=== PATIENT | male | born 1975 | race Caucasian/White ===

== ENCOUNTER 2018-09-13 10:59 | Emergency (ER) | payer OTHER, MEDICAID, SELFPAY ==
--- NOTE | 2018-09-13 11:10 | XR_ITS ---
XR shoulder RT min 2V HISTORY: ITS.REASON: PAIN ORDERING PHYSICIAN: Andrew Abraham APRN PATIENT AGE: 43 years Comparison: None FINDINGS: No fracture or dislocation. No lytic or blastic change. There is normal mineralization. The joint spaces are well-preserved. No significant degenerative/arthritic changes. No erosive changes evident. IMPRESSION: Negative, no acute finding
[2018-09-13 11:11] VITALS: BP 132/84; PULSE 81; RESP 17; TEMP 36.6; O2SAT 99; BMI 29.3
--- NOTE | 2018-09-13 11:28 | HMH.EDUTC ---
[facility] [place] Disposition Clinical Impression: Shoulder pain Qualifiers: Chronicity: acute Laterality: right Qualified Code(s): M25.511 - Pain in right shoulder Shoulder tendinitis Qualifiers: Laterality: right Qualified Code(s): M75.81 - Other shoulder lesions, right shoulder Disposition: Home, Self-Care Condition on Discharge: Good Instructions: Shoulder Tendinopathy, DI for Shoulder Pain Additional Instructions: Follow up with Dr. Dickson (orthopedics). I put in a referral. Call her office and get an appointment. Don't start the oral steroids (medrol dose pack) until tomorrow. Follow up with your regular doctor. GO TO THE ER FOR ANY WORSENING SYMPTOMS Prescriptions: methylPREDNISolone [Medrol] 4 mg PO DIRECTED 6 Days #21 tab.ds.pk Referrals: Provider,MD Ming [Primary Care Provider] - Vicky Dickson MD [Physician] - Forms: Work/School Release Time of Disposition: 11:34 Medical Decision Making - Medical Records Medical records reviewed: Yes: I reviewed the patient's medical records. - Yusef Inquiry Pt receiving controlled substance: No Yusef was queried for this patient: No Vital Signs: 09/13/18 11:11 09/13/18 11:44 Temperature 97.8 F 97.8 F Temperature Source Oral Oral Pulse Rate 81 Pulse Rate [Right Brachial] 81 Respiratory Rate 17 17 Blood Pressure 132/84 Blood Pressure [Right Arm] 132/84 Blood Pressure Mean [Right Arm] 100 Blood Pressure Source [Right Arm] Automatic Cuff Blood Pressure Position [Right Arm] Sitting 02 Sat by Pulse Oximetry 99 Oxygen Delivery Method Room Air Room Air Orders (Tests/Meds): ED MEDICATIONS Discontinued Medications Generic Name Dose Route Start Last Admin Trade Name Freq PRN Reason Stop Dose Admin Ketorolac Tromethamine 60 mg 09/13/18 11:34 09/13/18 11:38 Toradol 60mg/2ml Vial IM 09/13/18 11:35 60 mg ONCE ONE Administration Methylprednisolone Sodium Succinate 125 mg 09/13/18 11:34 09/13/18 11:38 Solu-Medrol 125mg/2ml Vial IM 09/13/18 11:35 125 mg ONCE ONE Administration - Radiology Data #1 Image(s): Shoulder Image Reviewed: Yes I reviewed the patient's radiology image Preliminary Findings: No Fracture Seen [facility] [place] HPI - General Stated complaint: Rt. Shoulder pain Time Seen by Provider: 09/13/18 11:20 Mode of Arrival: Family Vehicle Source of Information: Patient Limitations: No Limitations Description of Symptoms (Recalled from Triage Doc. by RN): C/O RIGHT ARM/SHOULDER PAIN X 3 YEARS AND WORSE THE LAST 2 DAYS HEENT Symptoms (Recalled from RN notes): No Resp Symptoms (Recalled from RN notes): No Skin Symptoms (Recalled from RN notes): No MS Symptoms (Recalled from RN notes): Yes Functional Status (Recalled from RN notes): N/A - History of Present Illness Provider Complaint: He has a history of chronic right shoulder pain. Over the past 2 days his pain has worsened. He is unable to raise his arm over his head with having moderate to severe pain. - Related Data Previous Rx's Medication Instructions Recorded methylPREDNISolone [Medrol] 4 mg PO DIRECTED 6 Days #21 09/13/18 tab.ds.pk Allergies Allergy/AdvReac Type Severity Reaction Status Date / Time No Known Allergies Allergy Verified 11/14/17 22:11 - Worker's Comp Is this a Worker's Comp case?: No [facility] History - Hepatitis A Screen Drug use history?: No High risk sexual behaviors?: No History of sexually transmitted infection?: No Currently employed?: No Childcare worker?: No Do you have indoor plumbing?: Yes Do you have electricity?: Yes Attestation statement:: This patient has been screened for Hepatitis A risk factors. I have reviewed the patient's past medical history: Yes Medical History: Denies:: Diabetes Mellitus Type 1 - Social History Smoking Status: Current every day smoker Tobacco Type: cigarettes # Packs/Day (cigarettes): 1 Alcohol Intake: never Substance Use Type: former substance u
--- NOTE | 2018-09-13 11:31 | ED_ITS ---
[facility] [place] Disposition Clinical Impression: Shoulder pain Qualifiers: Chronicity: acute Laterality: right Qualified Code(s): M25.511 - Pain in right shoulder Shoulder tendinitis Qualifiers: Laterality: right Qualified Code(s): M75.81 - Other shoulder lesions, right shoulder Disposition: Home, Self-Care Condition on Discharge: Good Instructions: Shoulder Tendinopathy, DI for Shoulder Pain Additional Instructions: Follow up with Dr. Dickson (orthopedics). I put in a referral. Call her office and get an appointment. Don't start the oral steroids (medrol dose pack) until tomorrow. Follow up with your regular doctor. GO TO THE ER FOR ANY WORSENING SYMPTOMS Prescriptions: methylPREDNISolone [Medrol] 4 mg PO DIRECTED 6 Days #21 tab.ds.pk Referrals: Provider,MD Ming [Primary Care Provider] - Vicky Dickson MD [Physician] - Forms: Work/School Release Time of Disposition: 11:34 Medical Decision Making - Medical Records Medical records reviewed: Yes: I reviewed the patient's medical records. - Yusef Inquiry Pt receiving controlled substance: No Yusef was queried for this patient: No Vital Signs: 09/13/18 11:11 09/13/18 11:44 Temperature 97.8 F 97.8 F Temperature Source Oral Oral Pulse Rate 81 Pulse Rate [Right Brachial] 81 Respiratory Rate 17 17 Blood Pressure 132/84 Blood Pressure [Right Arm] 132/84 Blood Pressure Mean [Right Arm] 100 Blood Pressure Source [Right Arm] Automatic Cuff Blood Pressure Position [Right Arm] Sitting 02 Sat by Pulse Oximetry 99 Oxygen Delivery Method Room Air Room Air Orders (Tests/Meds): ED MEDICATIONS Discontinued Medications Generic Name Dose Route Start Last Admin Trade Name Freq PRN Reason Stop Dose Admin Ketorolac Tromethamine 60 mg 09/13/18 11:34 09/13/18 11:38 Toradol 60mg/2ml Vial IM 09/13/18 11:35 60 mg ONCE ONE Administration Methylprednisolone Sodium Succinate 125 mg 09/13/18 11:34 09/13/18 11:38 Solu-Medrol 125mg/2ml Vial IM 09/13/18 11:35 125 mg ONCE ONE Administration - Radiology Data #1 Image(s): Shoulder Image Reviewed: Yes I reviewed the patient's radiology image Preliminary Findings: No Fracture Seen [facility] [place] HPI - General Stated complaint: Rt. Shoulder pain Time Seen by Provider: 09/13/18 11:20 Mode of Arrival: Family Vehicle Source of Information: Patient Limitations: No Limitations Description of Symptoms (Recalled from Triage Doc. by RN): C/O RIGHT ARM/SHOULDER PAIN X 3 YEARS AND WORSE THE LAST 2 DAYS HEENT Symptoms (Recalled from RN notes): No Resp Symptoms (Recalled from RN notes): No Skin Symptoms (Recalled from RN notes): No MS Symptoms (Recalled from RN notes): Yes Functional Status (Recalled from RN notes): N/A - History of Present Illness Provider Complaint: He has a history of chronic right shoulder pain. Over the past 2 days his pain has worsened. He is unable to raise his arm over his head with having moderate to severe pain. - Related Data Previous Rx's Medication Instructions Recorded methylPREDNISolone [Medrol] 4 mg PO DIRECTED 6 Days #21 09/13/18 tab.ds.pk Allergies
[2018-09-13 11:44] VITALS: BP 132/84; PULSE 81; RESP 17; TEMP 36.6; O2SAT 99
== END 2018-09-13 11:44 | disposition home or self-care (01) ==
PROVIDERS: Emergency Provider Nurse Practitioner Family
DX: M25.511 Pain in right shoulder (principal); M75.81 Other shoulder lesions, right shoulder; F17.210 Nicotine dependence, cigarettes, uncomplicated
CPT/HCPCS: 73030; 96372; 99202

== ENCOUNTER 2018-10-13 17:47 | Outpatient (CLI) | payer MEDICAID, SELFPAY ==
--- NOTE | 2018-10-13 18:09 | PC.NURSE ---
HERE FOR DRESSING CHANGE TO LEFT HAND. DRESSING REMOVED AND REPACKED WITH IODOFORM GAUZE,COVERED BY CAMPBELL AND KELLY. TO RETURN TOMORROW FOR ADDITIONAL WOUND CARE. AREA REMAINS RED AND INFLAMMED WITH DRAINAGE OF PUS
== END 2018-10-13 18:11 | disposition home or self-care (01) ==
LOC: UTC.OUT 17:49
PROVIDERS: PCP Physician Assistant; Visit Provider Nurse Practitioner Family
DX: L02.512 Cutaneous abscess of left hand (principal)

== ENCOUNTER 2018-10-18 14:03 | Outpatient (RCR) | payer OTHER, MEDICAID, SELFPAY ==
--- NOTE | 2018-10-18 14:39 | HMH.OTOPEV ---
OT Inpatient Evaluation Rehab OT Outpatient Eval Start: 10/18/18 14:29 Freq: Status: Active Protocol: Document 10/18/18 14:29 RMARSHALJose De Jesus (Rec: 10/18/18 14:39 [id number] Electronically Signed By Zeinab Logan OT 10/18/18 14:29 Outpatient Therapy Subjective History Subjective History Pt is a 43 year old male who reports to therapy for initial evaluation to right shoulder. Pt reports at work he was continuously pushing/pulling trollies (August,). He remembers pulling a trolly which caused pain at the shoulder immediately. Since then he has had a steady increase in pain at the right shoulder. Pt does demonstrate with decreased AROM and strength at right shoulder. Pt will continue to be seen twice a week in order to address all deficits. Chief Complaint Pain,Stiff,Weakness Symptom Type Ache,Throb,Sharp,Dull,Shooting Symptoms Relieved By Nothing Symptoms Aggravated By Physical Activity,Lifting Prior Functional Limitations None Current Functional Limitations Reaching,Lifting,Housework, Dressing,Driving,Sleeping, Recreation Activity Symptom Description Constant and Continuous Level of pain today (0-10) 5 Pain scale - at its best (0-10) 2 Pain scale - at its worst (0-10) 8 Shoulder/Elbow Eval Shoulder Objective Measurements Shoulder ROM Right Shoulder ROM Limitations Pain Shoulder Abduction Active Range of 85 degrees Motion (degrees) Shoulder Flexion Active Range of Motion 114 degrees (degrees) Query Text: Shoulder External Rotation Active Range 45 degrees of Motion (degrees) Shoulder Internal Rotation Active Range 45 degrees of Motion (degrees) pain with active ROM shoulder exam right standard pain with passive ROM shoulder exam right standard decreased ROM shoulder exam standard right full ROM shoulder exam standard left Shoulder MMT Shoulder Abduction Strength Grade 3+ Fair+ Shoulder Extension Strength Grade 3+ Fair+ Shoulder Flexion Strength Grade 3+ Fair+ Shoulder External Rotation Strength 3+ Fair+ Grade Shoulder Internal Rotation Strength 3+ Fair+ Grade
== END 2018-10-18 14:10 | disposition home or self-care (01) ==
LOC: OT 14:03
PROVIDERS: Visit Provider Physician Assistant
DX: M25.511 Pain in right shoulder (principal)
CPT/HCPCS: 97166

== ENCOUNTER → 2019-05-29 16:40 | Outpatient (CLI) | payer OTHER, MEDICAID, SELFPAY ==
[2019-05-29 16:51] LABS: Basophils # 0.1 K/mm3 (0-0.2); Basophils % 1.2 % (0.1-2.0); Eosinophils # 0.3 K/mm3 (0.0-0.4); Eosinophils % 4.7 % (0.1-12.0); Hematocrit 42.9 % (42.0-52.0); Hemoglobin 14.2 g/dL (14.1-18.0); Lymphocytes # 2.6 K/mm3 (0.7-4.5); Lymphocytes % 47.6 % (10-50); Mean Corpuscular HGB Conc 33.2 g/dL (31.8-35.4); Mean Corpuscular Hemoglobin 29.7 pg (27.0-31.2); Mean Corpuscular Volume 89.3 fl (80-94); Mean Platelet Volume 7.2 fl (7.4-10.4); Monocytes # 0.3 K/mm3 (0.1-1.0); Monocytes % 5.5 % (1.7-9.3); Neutrophils # 2.2 K/mm3 (1.8-7.8); Platelet Count 301 K/mm3 (142-424); Red Cell Distribution Width 15.4 % (11.5-17.5); White Blood Count 5.4 K/mm3 (4.8-10.8)
[2019-05-29 17:12] LABS: Chloride 102 mmol/L (98-107)
[2019-05-29 17:13] LABS: Potassium 4.6 mmoL/L (3.5-5.1); Sodium 140 mmol/L (136-145)
[2019-05-29 17:14] LABS: Blood Urea Nitrogen 13 mg/dl (9-20); Estimated Glomerular Filt Rate 93 ml/min (>60); GFR (African American) 112 ML/MIN (>60)
[2019-05-29 17:15] LABS: Alanine Aminotransferase 11 U/L (12-78); Alkaline Phosphatase 54 U/L (38-126); Anion Gap 12.6 mEq/L (5-15); Aspartate Amino Transferase 18 U/L (17-59); Bilirubin,Total 0.7 mg/dl (0.2-1.3); Carbon Dioxide 30 mmol/L (22.0-30.0); Cholesterol 179 mg/dl (140-200); Triglycerides 173 mg/dl (30-150); VLDL Cholesterol 35 mg/dL (0-40)
[2019-05-29 17:16] LABS: Albumin Level 4.2 g/dl (3.5-5.0); Albumin/Globulin Ratio 1.1 (1.1-1.8); Calcium 9.3 mg/dl (8.4-10.2); Chol/HDL Ratio 5.1 (1-3.5); Globulin 3.8 g/dL (1.3-3.2); Glucose 87 mg/dl (74-100); HDL Cholesterol 35 mg/dl (40-60)
[2019-05-29 17:29] LABS: Direct LDL Cholesterol 51.57 mg/dL (100-129)
[2019-05-29 17:48] LABS: Thyroid Stimulating Hormone 1.01 uIU/mL (0.465-4.68)
[2019-05-29 18:46] LABS: T4 (Thyroxine) 9.6 ug/dl (5.53-11.0)
[2019-05-31 08:31] LABS: Testosterone,Total 236 ng/dL (264-916); Vitamin D 25 Hydroxy 17.4 ng/mL (30.0-100.0)
== END ==
PROVIDERS: Visit Provider Physician Assistant
DX: R68.82 Decreased libido (principal); E55.9 Vitamin D deficiency, unspecified
CPT/HCPCS: 80053; 80061; 82652; 84403; 84436; 84443; 85025

== ENCOUNTER → 2019-06-03 14:05 | Outpatient (CLI) | payer OTHER, MEDICAID, SELFPAY ==
[2019-06-05 12:17] LABS: Testosterone,Total 298 ng/dL (264-916)
== END ==
PROVIDERS: Visit Provider Physician Assistant
DX: R79.89 Other specified abnormal findings of blood chemistry (principal)
CPT/HCPCS: 84403

== ENCOUNTER 2021-11-01 15:01 | Emergency (ER) | payer MEDICAID, SELFPAY ==
[2021-11-01 15:10] VITALS: BP 140/79; PULSE 101; RESP 19; TEMP 36.8; O2SAT 98; BMI 30.9
[2021-11-01 15:40] VITALS: BP 140/79; PULSE 101; RESP 19; TEMP 36.8; O2SAT 98
--- NOTE | 2021-11-01 16:12 | HMH.EDUTC ---
[facility] [place] Disposition Clinical Impression: Encounter for laboratory testing for COVID-19 virus Disposition: Home, Self-Care Condition on Discharge: Good Instructions: DI for COVID-19 (Suspected or Confirmed ), Preventing the Spread of Coronavirus Discharge Instructions Additional Instructions: *Monitor Temp, Over the counter Motrin or Tylenol as directed/as needed Tylenol every 4 hours and Motrin every 6 hours (as long as your family doctor has told you that you can take it) for fever or pain. and straight to ER if unable to lower temp less than 101.0 after medication given *Warm salt water gargles may help to soothe the throat *Throat Lozenges *Warm fluids like tea with honey may help to soothe the throat *Sleep elevated *Humidifier/Vaporizer Follow up IMMEDIATELY for new or worsening symptoms or no Noticeable improvement over the next 48-72 hours. 911 for difficulty breathing or swallowing You were tested for today for COVID19 your test result should be back in the next 24-48 hours, you may check your results on the [facility] My Health Portal Make sure to take your Vitamins Vit. C Vit D and Zinc if you can take them Referrals: Karla Butts PA [Primary Care Provider] - As needed Forms: Work/School Release Medical Decision Making - Yusef Inquiry Pt receiving controlled substance: No Yusef was queried for this patient: No Vital Signs: 11/01/21 15:10 11/01/21 15:40 Temperature 98.3 F 98.3 F Temperature Source Oral Pulse Rate 101 H Pulse Rate [Right Brachial] 101 H Respiratory Rate 19 19 Blood Pressure 140/79 Blood Pressure [Right Arm] 140/79 Blood Pressure Mean [Right Arm] 99 Blood Pressure Source [Right Arm] Automatic Cuff Blood Pressure Position [Right Arm] Sitting 02 Sat by Pulse Oximetry 98 Oxygen Delivery Method Room Air Orders (Tests/Meds): ORDERS Category Date Time Status Covid-19 Nasal PCR ([facility]) Routine Lab 11/01/21 15:18 Received [facility] [place] HPI - General Stated complaint: covid exposure, covid test Time Seen by Provider: 11/01/21 15:25 Mode of Arrival: Ambulatory Source of Information: Patient Limitations: No Limitations Description of Symptoms (Recalled from Triage Doc. by RN): PATIENT STATES HE TESTED POSITIVE FOR COVID WITH A HOME TEST LAST WEEK. REQUESTING WORK NOTE TO RETURN TO WORK HEENT Symptoms (Recalled from RN notes): No Resp Symptoms (Recalled from RN notes): No Skin Symptoms (Recalled from RN notes): No MS Symptoms (Recalled from RN notes): No Functional Status (Recalled from RN notes): WNL - History of Present Illness Provider Complaint: Patient states that he tested for COVID on home test last and it was positive States that he is no longer having symptoms but work will not let him return until he is seen - Related Data Previous Rx's Medication Instructions Recorded cholecalciferol (vitamin D3) 25 1,000 unit PO DAILY #90 cap 06/03/19 mcg (1,000 unit) capsule ergocalciferol (vitamin D2) 1,250 50,000 unit PO QWEEK #14 cap 06/03/19 mcg (50,000 unit) capsule Allergies Allergy/AdvReac Type Severity Reaction Status Date / Time No Known Allergies Allergy Verified 06/13/19 10:09 - Worker's Comp Is this a Worker's Comp case?: No [facility] History - Hepatitis A Screen Attestation statement:: This patient has been screened for Hepatitis A risk factors. I have reviewed the patient's past medical history: Yes Medical History: Denies:: Diabetes Mellitus Type 1 Other Surgeries: Yes: No Previous Surgery Amputation: No Fractures: No - Social History Smoking Status: Current every day smoker Tobacco Type: cigarettes, smokeless tobacco # Packs/Day (cigarettes): 1 #Yrs smoked (if former smoker): 30 Alcohol Intake: never Substance Use Type: former substance user, heroin, crack/cocaine, painkillers, methamphetamine, opiates, amphetamines, marijuana Occupational Status: unemployed Family Hx:: Coronary Artery Disease, Hypertension, Stroke
== END 2021-11-01 16:18 | disposition home or self-care (01) ==
PROVIDERS: Emergency Provider Nurse Practitioner; PCP Physician Assistant
DX: Z20.822 Contact with and (suspected) exposure to COVID-19 (principal)
CPT/HCPCS: 99212; C9803; G0463; U0003; U0005

== ENCOUNTER 2022-05-21 13:21 | Emergency (ER) | payer MEDICAID, SELFPAY ==
[2022-05-21 13:22] VITALS: BMI 34.9
[2022-05-21 14:00] VITALS: BP 144/81; PULSE 102; RESP 19; TEMP 37.2; O2SAT 96; BMI 35.4
--- NOTE | 2022-05-21 14:09 | XR_ITS ---
PROCEDURE INFORMATION: Exam: XR Lumbosacral Spine Exam date and time: 05/21/2022 2:16 PM Age: 47 years old Clinical indication: Low back pain TECHNIQUE: Imaging protocol: Radiologic exam of the lumbosacral spine. Views: 2 or 3 views. COMPARISON: No relevant prior studies available. FINDINGS: Bones/joints: Vertebral alignment is maintained. There is preservation of vertebral body heights. No visible fracture. Interpedicular distances are maintained. Soft tissues: Unremarkable. IMPRESSION: No acute fracture. No traumatic subluxation.
[2022-05-21 14:11] LABS: Apearance,Urine Cloudy (Clear); Bilirubin,Urine 1+ (Negative); Blood, Urine Negative (Negative); Color,Urine Dark Yellow (Yellow); Glucose,Urine (UA) Negative (Negative); Ketones,Urine 15 (Negative); Protein,Urine 1+ (Negative); UTC Leukocyte Esterase,Urine Negative (Negative); UTC Nitrate,Urine Negative (Negative); Urobilinogen,Urine 1 EU/dl (0.2)
[2022-05-21 14:20] VITALS: BP 144/81; PULSE 102; RESP 19; TEMP 37.2; O2SAT 96
--- NOTE | 2022-05-21 14:47 | EXP.UTC ---
Discharge Plan Disposition Patient Disposition: Home, Self-Care Condition: Good Prescriptions Prescriptions: New etodolac 200 mg capsule 200 mg PO Q8H PRN (Reason: pain) Qty: 15 0RF methocarbamol 500 mg tablet 500 mg PO TID PRN (Reason: muscle spasm) Qty: 15 0RF methylprednisolone [Medrol (Nino)] 4 mg tablets,dose pack See Rx Instructions .Route .COMPLEX 6 Days Qty: 21 0RF Rx Instructions: taper pack; No Action cholecalciferol (vitamin D3) 25 mcg (1,000 unit) capsule 1,000 unit PO DAILY Qty: 90 3RF Rx Instructions: administer with meals ergocalciferol (vitamin D2) 1,250 mcg (50,000 unit) capsule 50,000 unit PO QWEEK Qty: 14 3RF Referrals Follow up/Referrals: Karla Butts PA [Primary Care Provider] - See instructions Activity Restrictions/Add. Instructions Additional Instructions/Restrictions: Take medication as prescribed *Etodolac janelle 8 hours with meal as needed for pain/inflammation *Remember you had a Toradol shot in the clinic today, which is similar to Motrin and Etodolac do not take today *Not additional anti-inflammatory like Ibuprofen, motrin, aleve, advil with the above amount of Etodolac. You can still take Tylenol every 4 hours as needed if you need something else for pain *Ice 20 minutes every 2 hours for the first 48 hours after the initial injury followed by moist heat every 20 minutes 3-4 times a day to affected area *Muscle relaxer every 8 hours as needed for muscle spasms but remember, it WILL cause drowsiness You cannot take it and drive, operate machinery or care for small children or while working *Keep this area active, no movement leads to more stiffness, However take it easy and avoid heavy lifting pushing or pulling *Follow up with you family doctor if no improvement for further treatment and re evaluation of urine Straight to ER if any worsening of pain or any life threatening symptoms Clinical Impressions Clinical Impression: Lumbar radiculopathy Stand Alone Forms Stand Alone Forms: Work/School Release Instructions Patient Instructions: DI for Low Back Pain Discharge ED Provider: Mahi Pool [facility] General Chief complaint: Back Pain/Injury Stated complaint: back pain, no accident, kidney pain Mode of Arrival: Ambulatory Source of Information: Patient Limitations: No Limitations Time Seen by Provider: 05/21/22 14:20 Description of Symptoms (Recalled from Triage Doc. by RN): PATIENT C/O LOWER BACK PAIN THAT STARTED APPROX 4 WEEKS AGO, BUT STATES IT BECAME WORSE LAST NIGHT. NO KNOWN INJURY HEENT Symptoms (Recalled from RN notes): No Resp Symptoms (Recalled from RN notes): No Skin Symptoms (Recalled from RN notes): No MS Symptoms (Recalled from RN notes): Yes Functional Status (Recalled from RN notes): WNL History of Present Illness Provider Complaint: Patient sent from triage States that he has been having low back pain on and off for about 4 weeks but got up this morning and was worse States that pain is worse with certain ways he moves or bends States that it was a little achy last night but worse this morning Denies fever, denies chills denies radiation of pain denies loss of control of bowel or bladder Denies abdominal pain or difficulty urinating States that feels like it is catching Related Data Previous Rx's Medication Instructions Recorded cholecalciferol (vitamin D3) 25 1,000 unit PO DAILY #90 caps 06/03/19 mcg (1,000 unit) capsule ergocalciferol (vitamin D2) 1,250 50,000 unit PO QWEEK #14 caps 06/03/19 mcg (50,000 unit) capsule etodolac 200 mg capsule 200 mg PO Q8H PRN pain #15 caps 05/21/22 methocarbamol 500 mg tablet 500 mg PO TID PRN muscle spasm #15 05/21/22 tabs methylprednisolone 4 mg tablets in See Rx Instructions .Route 05/21/22 a dose pack (Medrol (Nino)) .COMPLEX 6 days #21 tabs Allergies Allergy/AdvReac Type Severity Reaction Status Date / Time No Known Allergies Allergy Verified 06/13/19 10:09
== END 2022-05-21 15:16 | disposition home or self-care (01) ==
PROVIDERS: Emergency Provider Nurse Practitioner; PCP Physician Assistant
DX: M54.16 Radiculopathy, lumbar region (principal)
CPT/HCPCS: 72100; 81003; 96372; 99213; 99214; G0463

== ENCOUNTER → 2022-06-06 11:39 | Outpatient (CLI) | payer MEDICAID, SELFPAY ==
[2022-06-06 13:09] LABS: Basophils # 0.1 K/mm3 (0-0.2); Basophils % 1.4 % (0.1-2.0); Eosinophils # 0.3 K/mm3 (0.0-0.4); Eosinophils % 4.4 % (0.1-12.0); Hematocrit 42.9 % (42.0-52.0); Lymphocytes # 1.9 K/mm3 (0.7-4.5); Lymphocytes % 30.1 % (10-50); Mean Corpuscular HGB Conc 32.7 g/dL (31.8-35.4); Mean Corpuscular Hemoglobin 30.8 pg (27.0-31.2); Mean Corpuscular Volume 94.3 fl (80-94); Mean Platelet Volume 7.7 fl (7.4-10.4); Monocytes # 0.4 K/mm3 (0.1-1.0); Monocytes % 5.6 % (1.7-9.3); Neutrophils # 3.8 K/mm3 (1.8-7.8); Neutrophils % 58.6 % (37.0-80.0); Platelet Count 381 K/mm3 (142-424); Red Blood Count 4.55 M/mm3 (4.60-6.20); White Blood Count 6.4 K/mm3 (4.8-10.8)
[2022-06-06 13:26] LABS: Chloride 101 mmol/L (98-107)
[2022-06-06 13:27] LABS: Potassium 4.7 mmoL/L (3.5-5.1); Sodium 137 mmol/L (136-145)
[2022-06-06 13:29] LABS: Alanine Aminotransferase 19 U/L (12-78); Alkaline Phosphatase 100 U/L (38-126); Amylase 41 U/L (30-110); Anion Gap 12.7 mEq/L (5-15); Aspartate Amino Transferase 22 U/L (17-59); Bilirubin,Total 1.1 mg/dl (0.2-1.3); Blood Urea Nitrogen 10 mg/dl (9-20); Carbon Dioxide 28 mmol/L (22.0-30.0); Estimated Glomerular Filt Rate 122 ml/min (>60); GFR (African American) 148 ML/MIN (>60)
[2022-06-06 13:30] LABS: Calcium 8.6 mg/dl (8.4-10.2); Chol/HDL Ratio 6.7 (1-3.5); Cholesterol 240 mg/dl (140-200); Globulin 4.2 g/dL (1.3-3.2); Glucose 120 mg/dl (74-100); HDL Cholesterol 36 mg/dl (40-60); Lipase 18 U/L (23-300); Total Protein,Serum 8.2 g/dl (6.3-8.2); Triglycerides 273 mg/dl (30-150); VLDL Cholesterol 55 mg/dL (0-40)
[2022-06-06 13:37] LABS: C-Reactive Protein 98.8 mg/L (0-4)
[2022-06-06 13:42] LABS: Direct LDL Cholesterol 64.13 mg/dL (100-129)
[2022-06-06 13:50] LABS: Erythrocyte Sedimentation Rate 70 mm/hr (0-15)
[2022-06-06 13:54] LABS: 25-OH Vitamin D, Total < 12.8 ng/mL (30-100)
[2022-06-06 14:01] LABS: Thyroid Stimulating Hormone 2.63 uIU/mL (0.465-4.68)
[2022-06-06 14:11] LABS: Prostate Specific Ag Screen 0.5 ng/ml (0.0-4.0)
[2022-06-06 15:24] LABS: Hemoglobin A1C 5.7 % (4.0-6.0)
[2022-06-15 21:08] LABS: HLA-B27 Negative (.)
== END ==
PROVIDERS: PCP Physician Assistant; Visit Provider Physician Assistant
DX: M54.9 Dorsalgia, unspecified (principal); M54.50 Low back pain, unspecified; R73.09 Other abnormal glucose; R10.13 Epigastric pain; R82.2 Biliuria; R31.9 Hematuria, unspecified; E55.9 Vitamin D deficiency, unspecified; Z12.5 Encounter for screening for malignant neoplasm of prostate
CPT/HCPCS: 80053; 80061; 82150; 82306; 83036; 83690; 84443; 85025; 85651; 86140; 86812; 87086; 87522; 87902; G0103

== ENCOUNTER 2022-06-27 14:51 | Emergency (ER) | payer MEDICAID, SELFPAY ==
[2022-06-27 14:51] VITALS: BP 151/97; PULSE 110; RESP 18; TEMP 36.6; O2SAT 97; BMI 32.5
[2022-06-27 16:33] VITALS: BP 146/104; PULSE 99; O2SAT 99
--- NOTE | 2022-06-27 17:37 | HMH.EDGENADL ---
Discharge Plan Disposition Patient Disposition: Home, Self-Care Condition: Good Prescriptions Prescriptions: New ketorolac 10 mg tablet 10 mg PO Q6H PRN (Reason: pain) 3 Days Qty: 10 0RF methocarbamol 750 mg tablet 750 mg PO Q6H Qty: 20 0RF No Action buprenorphine-naloxone 8-2 mg tablet, sublingual 1 tab sublingual ergocalciferol (vitamin D2) 1,250 mcg (50,000 unit) capsule 1,250 mcg PO WEEKLY Qty: 14 3RF cholecalciferol (vitamin D3) 50 mcg (2,000 unit) capsule 50 mcg PO DAILY Qty: 90 3RF atorvastatin 10 mg tablet 10 mg PO DAILY Qty: 90 3RF Referrals Follow up/Referrals: Karla Butts PA [Primary Care Provider] - See instructions Activity Restrictions/Add. Instructions Additional Instructions/Restrictions: Toradol as needed for pain. Robaxin, muscle relaxer, as needed. Additional instructions for BACK PAIN: See your physician as soon as possible for further evaluation. Return immediately if back pain becomes intolerable, or if fever, numbness or weakness of your legs, loss of control of your bowels or bladder. Clinical Impressions Clinical Impression: Low back pain Stand Alone Forms Stand Alone Forms: Work/School Release Instructions Patient Instructions: DI for Low Back Pain Discharge ED Provider: Agustin Stephens Adult HPI General Chief complaint: PAIN Stated complaint: back pain, no accident Time Seen by Provider: 06/27/22 17:30 Mode of Arrival: Ambulatory Source of Information: Patient Limitations: No Limitations Description of Symptoms (Recalled from ER Triage Doc. by RN): c/o middle and lower back pain that started 2 months ago. States the pain was light 2 months ago but has gotten worse with his job. 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 Pt has seen [facility] and had xray completed with no issues seen, fu with his family doctor who states they will probably need a mri. History of Present Illness HPI narrative: Patient complains of back pain. He indicates the region of his lower thoracic and upper lumbar spine. It has been bothering him for 2 months. He does not recall any injury. The pain worsens with movement. He was seen in the urgent treatment center here and had x-rays done. He thinks he received a shot of steroids there which did not help at all. He takes [id number] ibuprofen which helps. He has been on muscle relaxers which helped. He has seen his primary care doctor and he says that that they are trying to arrange a scan. He says that his primary care provider told him that if he got worse to come to the emergency department. He denies any radiation down the legs. No numbness or weakness of the legs. No numbness of the groin. No loss of bowel or bladder control. He is on Suboxone. He said he has had a couple of episodes when he is laying in bed at night where the muscles across his abdomen will all tighten up. Related Data Home Medications Medication Instructions Recorded Confirmed buprenorphine 8 mg-naloxone 2 mg 1 tab sublingual 06/06/22 06/06/22 sublingual tablet Previous Rx's Medication Instructions Recorded atorvastatin 10 mg tablet 10 mg PO DAILY #90 tabs 06/08/22 cholecalciferol (vitamin D3) 50 50 mcg PO DAILY #90 caps 06/08/22 mcg (2,000 unit) capsule ergocalciferol (vitamin D2) 1,250 1,250 mcg PO WEEKLY #14 caps 06/08/22 mcg (50,000 unit) capsule ketorolac 10 mg tablet 10 mg PO Q6H PRN pain 3 days #10 06/27/22 tabs methocarbamol 750 mg tablet 750 mg PO Q6H #20 tabs 06/27/22 Allergies Allergy/AdvReac Type Severity Reaction Status Date / Time No Known Allergies Allergy Verified 06/06/22 11:02 [facility] Disclaimer: The information contained in this section may have been updated after the patient was seen, as this information can be updated by other users. Medical History Decreased libido Migraine T
--- NOTE | 2022-06-27 17:48 | PC.NURSE ---
Rounded on pt states no complaints @ this time
[2022-06-27 17:56] VITALS: BP 130/80; PULSE 78; RESP 16; TEMP 37.2; O2SAT 97
== END 2022-06-27 17:58 | disposition home or self-care (01) ==
PROVIDERS: Emergency Provider Emergency Medicine; PCP Physician Assistant
DX: M54.50 Low back pain, unspecified (principal)
CPT/HCPCS: 96372; 99283; 99284

== ENCOUNTER 2023-04-10 20:00 | Inpatient (IN) | payer BC, SELFPAY ==
--- NOTE | 2023-04-10 20:12 | ECG_ITS ---
APPROVED REPORT Exam: Resting ECG HR:115 bpm ECG Measurements Heart Rate 115 AXES WV 153 P 56 QRSd 102 QRS 80 QT 347 T 47 QTc 415 Conclusion SINUS TACHYCARDIA POSSIBLE LEFT ATRIAL ENLARGEMENT [-0.1mV P-WAVE IN V1/V2] ABNORMAL RHYTHM ECG UNCONFIRMED REPORT Electronically signed by : Brendan Corbin MD 04/11/2023 13:08:48
[2023-04-10 20:21] VITALS: BP 135/98; PULSE 86; RESP 18; TEMP 37.7; O2SAT 86; BMI 36.9
[2023-04-10 20:30] VITALS: BP 121/96; RESP 17; O2SAT 95
--- NOTE | 2023-04-10 20:58 | XR_ITS ---
PROCEDURE INFORMATION: Exam: XR Chest Exam date and time: 04/10/2023 9:21 PM Age: 48 years old Clinical indication: Dyspnea TECHNIQUE: Imaging protocol: Radiologic exam of the chest. Views: 1 view. COMPARISON: CR CXR CHEST(2 VIEWS-NOT PORTABLE) 02/14/2017 2:39 PM FINDINGS: Lungs: Central opacities with peribronchial cuffing. Pleural spaces: Unremarkable. No pleural effusion. No pneumothorax. Heart/Mediastinum: Unremarkable. No cardiomegaly. Bones/joints: Unremarkable. IMPRESSION: Combination of findings that suggests viral process versus reactive airways without evidence of consolidation.
[2023-04-10 21:00] VITALS: BP 125/91; PULSE 114; RESP 19; O2SAT 94
--- NOTE | 2023-04-10 21:00 | HMH.EDGENADL ---
Discharge Plan Disposition Patient Disposition: Admitted Prescriptions Prescriptions: No Action buprenorphine-naloxone 8-2 mg tablet, sublingual 1 tab sublingual methocarbamol 750 mg tablet 750 mg PO Q6H Qty: 90 0RF ibuprofen 800 mg tablet 800 mg PO Q8H Qty: 90 2RF albuterol sulfate [Proventil HFA] 90 mcg/actuation HFA aerosol inhaler 2 puff inhalation Q6H PRN (Reason: shortness of breath or wheezing) Qty: 8.5 2RF ergocalciferol (vitamin D2) 1,250 mcg (50,000 unit) capsule 1,250 mcg PO WEEKLY Qty: 14 3RF cholecalciferol (vitamin D3) 50 mcg (2,000 unit) capsule 50 mcg PO DAILY Qty: 90 3RF atorvastatin 10 mg tablet 10 mg PO DAILY Qty: 90 3RF Referrals Follow up/Referrals: Karla Butts PA [Primary Care Provider] - See instructions Clinical Impressions Clinical Impression: Acute exacerbation of chronic obstructive pulmonary disease, Acute hypoxic respiratory failure, Sepsis Discharge ED Provider: Courtney Godoy General Adult HPI General Chief complaint: Shortness of Breath/Dyspnea Stated complaint: difficulty breathing Time Seen by Provider: 04/10/23 20:55 Mode of Arrival: Ambulatory Source of Information: Patient Limitations: No Limitations Description of Symptoms (Recalled from ER Triage Doc. by RN): pt states he has been sick since 04/07. pt c/o SOA, productive cough with yellow foamy sputum, rib/umbilical pain (he thinks from coughing), chills, and N/V/D. pt states he has been out of it and barely remembers Sunday. pts face is red and hot to the touch. temp is 100F. pts abd is slightly discolored and cold to the touch. pt is on RA @ home. Pt pulse ox was 86% on RA. pt is now on 4L at 92%. History of Present Illness HPI narrative: Is a 48-year-old male with a history of presumed COPD he states that he believes that he has this has been smoking his whole life presents with 4 days of cough sputum production that is been increased significant wheezing shortness of breath and fever. States this is progressively worsened over the last several days. Does not have home oxygen oxygen saturations were 86% on room air prior to my assessment. Related Data Home Medications Medication Instructions Recorded Confirmed buprenorphine 8 mg-naloxone 2 mg 1 tab sublingual 06/06/22 08/14/22 sublingual tablet Previous Rx's Medication Instructions Recorded atorvastatin 10 mg tablet 10 mg PO DAILY #90 tabs 06/08/22 cholecalciferol (vitamin D3) 50 50 mcg PO DAILY #90 caps 06/08/22 mcg (2,000 unit) capsule ergocalciferol (vitamin D2) 1,250 1,250 mcg PO WEEKLY #14 caps 06/08/22 mcg (50,000 unit) capsule methocarbamol 750 mg tablet 750 mg PO Q6H #90 tabs 07/17/22 albuterol sulfate 90 mcg/actuation 2 puff inhalation Q6H PRN 08/14/22 aerosol inhaler (Proventil HFA) shortness of breath or wheezing #8.5 grams ibuprofen 800 mg tablet 800 mg PO Q8H #90 tabs 08/14/22 Allergies Allergy/AdvReac Type Severity Reaction Status Date / Time No Known Allergies Allergy Verified 04/10/23 20:35 [facility] Disclaimer: The information contained in this section may have been updated after the patient was seen, as this information can be updated by other users. Medical History Decreased libido Migraine Testosterone deficiency Vitamin D deficiency Social History Smoking Status: Current every day smoker tobacco type: cigarettes packs per day: 1 and smokeless tobacco alcohol intake: never substance use type: former substance user, marijuana, crack/cocaine, heroin, amphetamines, opiates, painkillers and methamphetamine current occupational status: unemployed Travel in the last 8 weeks: None ROS Obtained: Yes All systems reviewed & no additional complaints except as documented Physical Exam General General appearance: in distress (Tachypneic speaking to me in fragmented sentences) Respiratory Respiratory exam: Present other (Patient in respiratory distress with mild tachypnea respiratory rate in the mid 20s very tight on my evaluation with prolonged expiratory phase speaking in fragmented sentences and diffuse wheezing) Cardiovascular Cardiovascular exam: Present tachycardia Neurological Exam Neurological exam: Present alert and oriented X3 (DCSF 15 nonfocal) Medical Decision Making Yusef Inquiry Pt receiving controlled substance: No Vital Signs: 04/10/23 20:21 04/10/23 20:30 04/10/23 21:00 Temperature 100 F H Temperature Source Oral Pulse Rate 114 H Pulse Rate [Left] 86 Respiratory Rate 18 17 19 Blood Pressure 121/96 H 125/91 H Blood Pressure [Right Arm] 135/98 H Blood Pressure Mean [Right Arm] 110 Blood Pressure Source [Right Arm] Automatic Cuff Blood Pressure Position [Right Arm] Sitting 02 Sat by Pulse Oximetry 86 L 95 94 L Oxygen Delivery Method Room Air Nasal Cannula Nasal Cannula Oxygen Flow Rate (LPM) 3 3 04/10/23 21:30 04/10/23 21:45 Temperature Temperature Source Pulse Rate 102 H 102 H Pulse Rate [Left] Respiratory Rate 18 Blood Pressure 146/91 H Blood Pressure [Right Arm] Blood Pressure Mean [Right Arm] Blood Pressure Source [Right Arm] Blood Pressure Position [Right Arm] 02 Sat by Pulse Oximetry 94 L Oxygen Delivery Method Nasal Cannula Oxygen Flow Rate (LPM) 3 Lab Data Lab results reviewed: Yes I reviewed the patient's lab results. Lab Results 04/10/23 20:10: WBC 4.0 L, RBC 5.03, Hgb 15.7, Hct 47.1, MCV 93.6, MCH 31.3 H, MCHC 33.4, RDW 15.2, Plt Count 193, MPV 7.8, Neut % (Auto) 78.5, Lymph % (Auto) 14.5, [place] % (Auto) 5.2, Eos % (Auto) 0.6, Baso % (Auto) 1.2, Neut # (Auto) 3.1, Lymph # (Auto) 0.6 L, [place] # (Auto) 0.2, Eos # (Auto) 0.0, Baso # (Auto) 0.1, Sodium 135 L, Potassium 3.2 L, Chloride 96 L, Carbon Dioxide 30, Anion Gap 12.2, BUN 23 H, Creatinine 0.90, Estimated Creat Clear 164, Estimated GFR 91, Est GFR ( Amer) 110, Glucose 171 H, Lactate 2.1, Calcium 7.9 L, Total Bilirubin 0.7, AST 60 H, ALT 28, Alkaline Phosphatase 71, Troponin I 0.01, NT-Pro-B Natriuret Pep 165 H, Total Protein 8.5 H, Albumin 3.9, Globulin 4.6 H, Albumin/Globulin Ratio 0.8 L 04/10/23 20:59: VBG pH 7.38, VBG pCO2 42.0, VBG pO2 81.1 H, VBG HCO3 24.5, VBG Total CO2 25.8, VBG O2 Saturation 95.8 H, VBG Base Excess -0.5 04/10/23 20:10 04/10/23 20:10 Orders (Tests/Meds): ED MEDICATIONS Discontinued Medications Generic Name Dose Route Start Last Admin Trade Name April PRN Reason Stop Dose Admin Albuterol/Ipratropium 3 ml 04/10/23 20:58 04/10/23 21:30 Ipratropium/Albuterol 3 Ml Neb IH 04/10/23 20:59 3 ml ONCE ONE Administration Lactated Ringer's 1,000 mls @ 999 mls/hr 04/10/23 21:00 04/10/23 21:06 Lactated Ringer's 1000 Ml Bag IV 04/10/23 22:00 999 mls/hr .Q1H1M AR[place]IO Administration Magnesium Sulfate 2 gm in 50 mls @ 50 mls/hr 04/10/23 20:58 04/10/23 21:05 Magnesium Sulfate 2gm/50ml Premix IV 04/10/23 21:57 50 mls/hr ONCE ONE Administration Ceftriaxone Sodium 1 gm/ 50 mls @ 100 mls/hr 04/10/23 22:09 04/10/23 22:25 Sodium Chloride IV 04/10/23 22:38 100 mls/hr ONCE ONE Administration Azithromycin 500 mg/ Sodium 250 mls @ 250 mls/hr 04/10/23 22:10 04/10/23 22:47 Chloride IV 04/10/23 22:11 250 mls/hr ONCE ONE Administration Methylprednisolone Sodium Succinate 125 mg 04/10/23 20:58 04/10/23 21:06 Methylprednisolone Sod Succ 125mg Vial IV 04/10/23 20:59 125 mg ONCE ONE Administration ORDERS Category Date Time Status CXR --portable [XR chest portable] Stat Exams 04/10/23 20:58 Completed BNP [Brain Natriuretic Peptide] Stat Lab 04/10/23 20:10 Completed CBC w/Auto Diff [Complete Blood Count Auto Diff] Stat Lab 04/10/23 20:10 Completed CMP [Comprehensive Metabolic Panel] Stat Lab 04/10/23 20:10 Completed Full Resp Panel w/COVID ([facility]) Routine Lab 04/10/23 20:59 Ordered Lactic Acid Stat Lab 04/10/23 20:10 Completed Trop I [Troponin I] Stat Lab 04/10/23 20:10 Completed Troponin I Q3H Lab 04/11/23 02:59 Ordered Blood Culture Stat Micro 04/10/23 20:44 Received Venous Blood Gas Stat RT 04/10/23 20:59 Completed Tissue Perfus/Sepsis Re-Eval Sepsis Re-Evaluation Performed: Yes Date Performed: 04/10/23 Time Performed: 22:54 Medical Decision Narrative: Patient is a 48-year-old male presenting today with tachypnea tachycardia febrile shortness of breath and what appears to be a COPD exacerbation. Patient is objectively septic full respiratory panel was pending chest x-ray performed which I personally interpreted shows no acute cardiopulmonary emergency specifically no evidence of acute focal consolidation nonetheless will cover with antibiotics given the fact that this is a moderate to severe COPD exacerbation Rocephin and azithromycin have been initiated. IV fluids nebs steroids antibiotics have been administered. Upon reassessment around 10:45 PM patient is improving but is still tachypneic and very tight still requiring supplemental oxygen. I strongly encouraged the patient to be admitted initially declined and wanted to go home because he could not miss anymore work but he was still very sick not stable enough to go home from my perspective and I was able to convince the patient to stay in the hospital. He is can require additional breathing treatments IV fluids antibiotics etc. Also needs to have a definitive source of infection identified as this still is very likely to be viral. Patient was admitted to hospital medicine after I discussed with Jacqueline who agreed to accept the patient. Critical Care Critical Care Time Critical Care Time: Yes Attestation: On 04/10/23, the high probability of a clinically significant, sudden or life threatening deterioration of the following system(s) required my full and direct attention, intervention and personal management. The time I documented below is in addition to time spent performing reported procedures but includes the following listed in this critical care notation. Total Time Total Critical Care Time: 35
[2023-04-10] MEDS: MAGNESIUM SULFATE IN WATER 2 GM/50 ML PIGGYBACK IV (21:05)
[2023-04-10] MEDS: LACTATED RINGERS 1000ML 1,000 ML 999 ML IV (21:06)
[2023-04-10] MEDS: METHYLPREDNISOLONE SOD SUCC 125MG VIAL 125 MG IV (21:06)
[2023-04-10 21:19] LABS: Basophils # 0.1 K/mm3 (0-0.2); Basophils % 1.2 % (0.1-2.0); Eosinophils % 0.6 % (0.1-12.0); Hematocrit 47.1 % (42.0-52.0); Hemoglobin 15.7 g/dL (14.1-18.0); Lactic Acid 2.1 mmol/L (0.7-2.1); Lymphocytes # 0.6 K/mm3 (0.7-4.5); Lymphocytes % 14.5 % (10-50); Mean Corpuscular HGB Conc 33.4 g/dL (31.8-35.4); Mean Corpuscular Hemoglobin 31.3 pg (27.0-31.2); Mean Corpuscular Volume 93.6 fl (80-94); Mean Platelet Volume 7.8 fl (7.4-10.4); Monocytes # 0.2 K/mm3 (0.1-1.0); Monocytes % 5.2 % (1.7-9.3); Neutrophils # 3.1 K/mm3 (1.8-7.8); Neutrophils % 78.5 % (37.0-80.0); Platelet Count 193 K/mm3 (142-424); Red Blood Count 5.03 M/mm3 (4.60-6.20); Red Cell Distribution Width 15.2 % (11.5-17.5)
[2023-04-10 21:26] LABS: VBG Base Excess -0.5 mmol/L (-2.4-2.3); VBG HCO3 24.5 mmol/L (23-30); VBG Oxygen Saturation 95.8 % (50-70); VBG PH 7.38 mmol/L (7.31-7.41); VBG PO2 81.1 mmol/L (28-40); VBG Total CO2 25.8 mmol/L (23-27)
[2023-04-10 21:30] VITALS: BP 146/91; PULSE 102; RESP 18; O2SAT 94
[2023-04-10] MEDS: IPRATROPIUM/ALBUTEROL 3 ML NEB IH (21:30)
[2023-04-10 21:32] LABS: NT Pro Brain Natriuretic Pep. 165 pg/mL (0-125)
[2023-04-10 21:36] LABS: Troponin I 0.01 ng/ml (0.00-0.034)
[2023-04-10 21:45] VITALS: PULSE 102
[2023-04-10 22:22] LABS: Chloride 96 mmol/L (98-107); Sodium 135 mmol/L (136-145)
[2023-04-10 22:23] LABS: Potassium 3.2 mmoL/L (3.5-5.1)
[2023-04-10 22:25] LABS: Alanine Aminotransferase 28 U/L (12-78); Alkaline Phosphatase 71 U/L (38-126); Aspartate Amino Transferase 60 U/L (17-59); Bilirubin,Total 0.7 mg/dl (0.2-1.3); Blood Urea Nitrogen 23 mg/dl (9-20); Creatinine Clearance Estimated 164 mL/min (50-200); Estimated Glomerular Filt Rate 91 ml/min (>60); GFR (African American) 110 ML/MIN (>60)
[2023-04-10] MEDS: CEFTRIAXONE SODIUM 1 GM in 0.9 % SODIUM CHLORIDE 50 ML IV (22:25)
[2023-04-10 22:26] LABS: Albumin Level 3.9 g/dl (3.5-5.0); Albumin/Globulin Ratio 0.8 (1.1-1.8); Anion Gap 12.2 mEq/L (5-15); Calcium 7.9 mg/dl (8.4-10.2); Carbon Dioxide 30 mmol/L (22.0-30.0); Globulin 4.6 g/dL (1.3-3.2); Glucose 171 mg/dl (74-100); Total Protein,Serum 8.5 g/dl (6.3-8.2)
[2023-04-10] MEDS: AZITHROMYCIN 500 MG in 0.9 % SODIUM CHLORIDE 250 ML 250 MG IV (22:47)
--- NOTE | 2023-04-10 22:51 | PC.NURSE ---
ED doctor on phone with hospitalist
[2023-04-10 22:55] LABS: Adenovirus,PCR Not Detected (NotDetected); Coronavirus 19, PCR Not Detected (NotDetected); Coronavirus 229E Not Detected (NotDetected); Coronavirus NL63 Not Detected (NotDetected); Coronavirus OC43 Not Detected (NotDetected); Coronovirus HKU1,PCR Not Detected (NotDetected); Human Metapneumovirus Not Detected (NotDetected); Influenza A, PCR Not Detected (NotDetected); Influenza AH1, PCR Not Detected (NotDetected); Influenza AH3,PCR Not Detected (NotDetected); Influenza B, PCR Not Detected (NotDetected); Parainfluenza 1, PCR Not Detected (NotDetected); Parainfluenza 2, PCR Not Detected (NotDetected); Parainfluenza 3, PCR Not Detected (NotDetected); Parainfluenza 4, PCR Not Detected (NotDetected); Respiratory Syncytial Virus Not Detected (NotDetected); Rhinovirus/Enterovirus Not Detected (NotDetected)
--- NOTE | 2023-04-10 22:55 | PC.NURSE ---
I spoke with the supervisor hide house, Danielle MANZO, to request a bed for admission to the hospitalist.
[2023-04-10 23:00] LABS: Influenza AH1, 2009 Detected (NotDetected)
[2023-04-11] VITALS (17 sets, daily range): BP systolic 100–157; BP diastolic 63–88; PULSE 74–107; RESP 17–21; TEMP 36.5–37.7; O2SAT 89–96; BMI 36.8
[2023-04-11 00:07] LABS: Chol/HDL Ratio 4.3 (1-3.5); Cholesterol 121 mg/dl (140-200); HDL Cholesterol 28 mg/dl (40-60); Triglycerides 168 mg/dl (30-150); VLDL Cholesterol 34 mg/dL (0-40)
[2023-04-11 00:17] LABS: Direct LDL Cholesterol 38.16 mg/dL (100-129)
--- NOTE | 2023-04-11 00:32 | PC.NURSE ---
pt arrived to the floor via stretcher @00:10
[2023-04-11] MEDS: LACTATED RINGERS 1000ML 1,000 ML 75 ML IV (00:34)
[2023-04-11] MEDS: NICOTINE 21MG/24HR PATCH 21 MG TD ×2 (00:34→14:45)
--- NOTE | 2023-04-11 00:48 | EXP.HP ---
History of Present Illness *Admission Date: 04/10/23 (Pt seen by this provider on 04/10/2023 at 2330) *Reason for visit:: Shortness of breath *History of present illness: This is a 48-year-old male with a past medical history of Suboxone use and tobacco abuse who presents to the emergency department today with complaints of shortness of breath. He reports Sunday he began shortness of breath with cough and mild fever. He reports being substantially worse over the last several days. He denies any sick contacts but says that he is felt like he has had the flu. He denies any chest pain. Does endorse tobacco use. Emergency Department workup significant for mild respiratory distress on arrival. Patient was notably tachycardic and hypoxic in the 80s requiring requiring 4 L nasal cannula. Emergency department workup significant for flu a positive. Potassium of 3.2. Mildly elevated glucose at 171. He received magnesium, steroids and breathing treatments in the emergency department with improvement in respiratory symptoms. Due to his hypoxia and new oxygen requirement and flu a diagnosis, he will be admitted to the hospitalist service for further evaluation and management. [facility] Disclaimer: The information contained in this section may have been updated after the patient was seen, as this information can be updated by other users. Medical History (Updated 04/11/23 @ 12:18 by Sukhwinder Miramontes MD) Asthma exacerbation Decreased libido Migraine Testosterone deficiency Vitamin D deficiency Surgical History No history of previous surgery Family History Family history of asthma Family history of hypertension Family history of COPD (chronic obstructive pulmonary disease) Family history of hyperlipidemia Social History (Updated 04/11/23 @ 01:12 by Iggy Moses RN) Smoking Status: Current every day smoker tobacco type: cigarettes packs per day: 1 and smokeless tobacco alcohol intake: former substance use type: former substance user, marijuana, crack/cocaine, heroin, amphetamines, opiates, painkillers and methamphetamine current occupational status: unemployed Travel in the last 8 weeks: None Review of Systems Constitutional Constitutional: Reports as per HPI Eyes Eyes: Reports system reviewed and no additional complaints, except as documented ENT Ears, Nose, Mouth, and Throat: Reports system reviewed and no additional complaints, except as documented *Cardiovascular Cardiovascular: Reports system reviewed and no additional complaints, except as documented *Respiratory Respiratory: Reports as per HPI *Gastrointestinal Gastrointestinal: Reports system reviewed and no additional complaints, except as documented *Genitourinary Genitourinary: Reports system reviewed and no additional complaints, except as documented *Musculoskeletal Musculoskeletal: Reports system reviewed and no additional complaints, except as documented *Neurologic Neurologic: Reports system reviewed and no additional complaints, except as documented Meds Home Medications and Allergies Home Medications Medication Instructions Recorded Confirmed Type buprenorphine 8 mg-naloxone 2 mg 2 tab sublingual DAILY 04/11/23 04/11/23 History sublingual tablet New Prescriptions to Start Prescriptions: Allergies Allergy/AdvReac Type Severity Reaction Status Date / Time No Known Allergies Allergy Verified 04/10/23 20:35 Exam Data for Last 24 hours Vital signs and Labs for Last 24 Hours: Temp Pulse Resp BP Pulse Ox O2 Del Method O2 Flow Rate 99.5 F 97 H 21 131/80 93 L Nasal Cannula 4 04/11/23 00:26 04/11/23 00:26 04/11/23 00:26 04/11/23 00:26 04/11/23 00:26 04/11/23 00:26 04/11/23 00:26 Laboratory Results - last 24 hr 04/10/23 20:10: WBC 4.0 L, RBC 5.03, Hgb 15.7, Hct 47.1, MCV 93.6, MCH 31.3 H, MCHC 33.4, RDW 15.2, Plt Count 193, MPV 7.8, Neut % (Auto) 78.5, Lymph % (Auto) 14.5, [place] % (Auto) 5.2, Eos % (Auto) 0.6, Baso % (Auto) 1.2, Neut # (Auto) 3.1, Lymph # (Auto) 0.6 L, [place] # (Auto) 0.2, Eos # (Auto) 0.0, Baso # (Auto) 0.1, Sodium 135 L, Potassium 3.2 L, Chloride 96 L, Carbon Dioxide 30, Anion Gap 12.2, BUN 23 H, Creatinine 0.90, Estimated Creat Clear 164, Estimated GFR 91, Est GFR ( Amer) 110, Glucose 171 H, Hemoglobin A1c 6.0, Lactate 2.1, Calcium 7.9 L, Total Bilirubin 0.7, AST 60 H, ALT 28, Alkaline Phosphatase 71, Troponin I 0.01, NT-Pro-B Natriuret Pep 165 H, Total Protein 8.5 H, Albumin 3.9, Globulin 4.6 H, Albumin/Globulin Ratio 0.8 L, Triglycerides 168 H, Cholesterol 121 L, LDL Cholesterol Direct 38.16 L, VLDL Cholesterol 34, HDL Cholesterol 28 L, Cholesterol/HDL Ratio 4.3 H 04/10/23 20:59: VBG pH 7.38, VBG pCO2 42.0, VBG pO2 81.1 H, VBG HCO3 24.5, VBG Total CO2 25.8, VBG O2 Saturation 95.8 H, VBG Base Excess -0.5, Chlamy pneumoniae PCR TNP, Adenovirus (PCR) Not detected, B. pertussis DNA (PCR) TNP, Coronavirus OC43 (PCR) Not detected, Coronavirus HKU1 (PCR) Not detected, Coronavirus 229E (PCR) Not detected, SARS-CoV-2 (PCR) Not detected, Coronavirus NL63 (PCR) Not detected, Human Metapneumovir PCR Not detected, Influenza A (H1) PCR Not detected, Influ A (H1N1/09) PCR Detected A, Influenza A (H3) PCR Not detected, Influenza Type A (PCR) Not detected, Influenza Type B (PCR) Not detected, M. pneumoniae (PCR) TNP, Parainfluenza 1 (PCR) Not detected, Parainfluenza 2 (PCR) Not detected, Parainfluenza 3 (PCR) Not detected, Parainfluenza 4 (PCR) Not detected, RSV (PCR) Not detected, Entero/Rhino (PCR) Not detected I & O for Last 24 hours: Intake & Output 04/08/23 04/09/23 04/10/23 04/11/23 23:59 23:59 23:59 23:59 Weight 113.398 kg Constitutional Constitutional: no acute distress *Routine HEENT Exam Head: Present normocephalic Eye: Present EOMI and PERRL ENT: Present mucous membranes moist *Routine Neck Exam Neck: Present supple; Absent lymphadenopathy *Routine Respiratory Exam Respiratory: Present wheezes and diminished air movement *Routine Cardiovascular Exam Cardiovascular: Present RRR *Routine Abdominal Exam Abdominal: Present soft and normoactive bowel sounds; Absent tenderness *Routine Rectal Exam Rectal:: deferred *Routine Genitalia Exam Genitalia:: deferred *Routine Extremities Exam Extremities: Absent cyanosis, clubbing or edema *Routine Skin Exam Skin: Present warm; Absent rash *Routine Neurological Exam Neurological: Present alert and oriented X3 Assessment and Plan *Assessment and plan (1) Influenza A: Status: Acute Category: Medical Code(s): J10.1 - Influenza due to other identified influenza virus with other respiratory manifestations (2) Acute exacerbation of chronic obstructive pulmonary disease: Status: Acute Category: Medical Code(s): J44.1 - Chronic obstructive pulmonary disease with (acute) exacerbation (3) Acute hypoxic respiratory failure: Status: Acute Category: Medical Code(s): J96.01 - Acute respiratory failure with hypoxia (4) Sepsis: Status: Acute Qualifiers: Sepsis acute organ dysfunction status: without acute organ dysfunction Sepsis type: sepsis due to unspecified organism Qualified Code(s): A41.9 - Sepsis, unspecified organism Category: Medical Code(s): A41.9 - Sepsis, unspecified organism Plan This is a 48-year-old male with past medical history of substance abuse and tobacco abuse who presented to the emergency department in respiratory distress. Patient has noted to have flu a. He is a tobacco user, likely undiagnosed COPD as well. Influenza A Requiring 4 L nasal cannula to maintain oxygen saturations greater than 88% Chest x-ray without evidence of pneumonia Will continue Tamiflu and supportive measures Procalcitonin pending Received 1 dose of azithromycin and Rocephin in the emergency department, will defer for now pending Pro-Vitaly Acute COPD exacerbation Likely undiagnosed COPD at baseline. Patient denies any history of COPD but is a smoker. Diffuse wheezing on exam. Improved with DuoNebs Continue prednisone 20 mg daily Sepsis Meets criteria for tachycardia and tachypnea. Likely viral source. Requiring 4 L nasal cannula for hypoxia Will defer 30 mL/kg of fluids and continue gentle IV fluid hydration Symptomatic improvement with respiratory support Test negative Tobacco abuse Nicotine patch Tobacco cessation education DVT PPx SCDs Full code Rounded on patient after nurse practitioner. Personally examined and interviewed patient. Agree with exam findings and care plan as documented. Pulmonology consulted on patient today. Patient is at increased oxygen requirement. Of note, H&P is for 04/10/23
[2023-04-11] MEDS: OSELTAMIVIR 75MG CAPSULE 75 MG PO ×3 (00:50→21:39)
[2023-04-11] MEDS: ACETAMINOPHEN 325MG TAB 650 MG PO (00:56)
[2023-04-11] MEDS: IPRATROPIUM/ALBUTEROL 3 ML NEB IH ×6 (00:58→22:48)
[2023-04-11 01:08] LABS: Reflex Lactic Add Lactic Reflex
--- NOTE | 2023-04-11 01:14 | PC.NURSE ---
Patient transported from ER to 2nd floor via stretcher on 4L/NC. RN to RN report received from JOVANY Riley. Patient does not wear oxygen at home. Patient without oxygen will drop to 70%-80% with increased work of breathing. With small ambulation from stretcher to bed he became labored and after 3-5 minutes he was able to recover fair. NAD, VSS otherwise. Care continues.
--- NOTE | 2023-04-11 01:49 | PC.NURSE ---
Patient called out stating his RAC IV was starting to burn. Upon assessing the IV site it was noted to be firm and hard to flush. The IV catheter was 1cm out from insertion site. This IV was removed and new PIV started to Right Forearm.
[2023-04-11 02:25] LABS: Lactic Acid Follow Up (RFLX 1) 2.2 mmol/L (0.7-2.1)
[2023-04-11] MEDS: RINGERS SOLUTION,LACTATED 500 ML 999 ML IV (03:14)
[2023-04-11 03:27] LABS: Procalcitonin 0.306 ng/mL (0.0-2.0)
[2023-04-11 03:49] LABS: Reflex Lactic (2 hrs) Add Lactic Reflex
[2023-04-11 04:21] LABS: Basophils % 0.1 % (0.1-2.0); Eosinophils % 0.3 % (0.1-12.0); Hematocrit 44.7 % (42.0-52.0); Hemoglobin 14.8 g/dL (14.1-18.0); Lymphocytes # 0.4 K/mm3 (0.7-4.5); Lymphocytes % 11.7 % (10-50); Mean Corpuscular HGB Conc 33.1 g/dL (31.8-35.4); Mean Corpuscular Hemoglobin 31.4 pg (27.0-31.2); Mean Corpuscular Volume 94.9 fl (80-94); Monocytes # 0.2 K/mm3 (0.1-1.0); Monocytes % 5.8 % (1.7-9.3); Neutrophils # 2.8 K/mm3 (1.8-7.8); Neutrophils % 82.1 % (37.0-80.0); Platelet Count 190 K/mm3 (142-424); Red Blood Count 4.71 M/mm3 (4.60-6.20); Red Cell Distribution Width 14.9 % (11.5-17.5); White Blood Count 3.4 K/mm3 (4.8-10.8)
[2023-04-11 04:31] LABS: Chloride 97 mmol/L (98-107); Potassium 3.9 mmoL/L (3.5-5.1); Sodium 136 mmol/L (136-145)
[2023-04-11 04:32] LABS: Hemoglobin A1C 5.9 % (4.0-6.0)
[2023-04-11 04:34] LABS: Anion Gap 9.9 mEq/L (5-15); Blood Urea Nitrogen 18 mg/dl (9-20); Carbon Dioxide 33 mmol/L (22.0-30.0); Creatinine Clearance Estimated 211 mL/min (50-200); Estimated Glomerular Filt Rate 121 ml/min (>60); GFR (African American) 147 ML/MIN (>60); Lactic Acid Follow up (RFLX 2) 1.9 mmol/L (0.7-2.1)
[2023-04-11 04:35] LABS: Calcium 7.5 mg/dl (8.4-10.2); Chol/HDL Ratio 4.3 (1-3.5); Cholesterol 112 mg/dl (140-200); Glucose 176 mg/dl (74-100); HDL Cholesterol 26 mg/dl (40-60); Triglycerides 103 mg/dl (30-150); VLDL Cholesterol 21 mg/dL (0-40)
[2023-04-11 04:45] LABS: Direct LDL Cholesterol 39.68 mg/dL (100-129)
--- NOTE | 2023-04-11 06:40 | PC.NURSE ---
Patient rested well after admission. Still requiring 4L/NC and becomes labored when getting up to use his urinal. Breathing treatments have helped. Lung tomlin are still diminished on auscultation. NAD otherwise, VSS.
--- NOTE | 2023-04-11 07:26 | HMH.PHAINT1 ---
Pharmacy Intervention Comments: Home med list verified with patient at bedside and with external pharmacy list.
[2023-04-11] MEDS: predniSONE 20MG TAB 20 MG PO (08:35)
--- NOTE | 2023-04-11 09:48 | P.CONS_ITS ---
History of Present Illness History of present illness: Mr. Cho is a 48-year-old male greater than 30 PPD, carries a diagnosis of asthma, using albuterol on as-needed basis, not on any oxygen supplementation at baseline eported history of tobacco abuse presented to ER complaining of worsening respiratory distress along with subjective fevers that has been worsening recently for the last several days and pulmonary was called for f urther evaluation and management. [facility] Disclaimer: The information contained in this section may have been updated after the patient was seen, as this information can be updated by other users. Medical History (Updated 04/11/23 @ 12:18 by Sukhwinder Miramontes MD) Asthma exacerbation Decreased libido Migraine Testosterone deficiency Vitamin D deficiency Surgical History No history of previous surgery Family History Other Family history of COPD (chronic obstructive pulmonary disease) Family history of asthma Family history of hyperlipidemia Family history of hypertension Social History (Updated 04/11/23 @ 01:12 by Iggy Moses RN) Smoking Status: Current every day smoker tobacco type: cigarettes packs per day: 1 and smokeless tobacco alcohol intake: former substance use type: former substance user, marijuana, crack/cocaine, heroin, amphetamines, opiates, painkillers and methamphetamine current occupational status: unemployed Travel in the last 8 weeks: None Review of Systems Constitutional Constitutional: Reports anorexia and Reports body ache(s) Eyes Eyes: Denies eye discharge, Denies dry eyes, Denies irritation and Denies itchy eyes ENT Ears, Nose, Mouth, and Throat: Denies epistaxis, Denies facial pain, Denies lip swelling and Denies throat swelling *Cardiovascular Cardiovascular: Reports dyspnea and Reports dyspnea on exertion *Respiratory Respiratory: Reports chest congestion, Reports cough, Reports dyspnea, Reports dyspnea on exertion, Reports excessive phlegm production and Reports wheezing *Gastrointestinal Gastrointestinal: Denies abdominal pain, Denies belching and Denies cramping *Musculoskeletal Musculoskeletal: Reports back pain, Reports myalgias and Reports other (No small joint swelling or Pain) *Neurologic Neurologic: Reports system reviewed and no additional complaints, except as documented Psychiatric Psychiatric: Denies homicidal ideation and Denies suicidal ideation Endocrine Endocrine: Denies heat intolerance Hematologic/Lymphatic Hematologic/Lymphatic: Denies easy bleeding and Denies lymphadenopathy Allergic/Immunologic Allergic/Immunologic: Denies itchy eyes, Denies lip swelling, Denies throat swelling and Reports wheezing Pulmonology Exam Inpatient Vital signs and Labs for Last 24 Hours: Temp Pulse Resp BP Pulse Ox O2 Del Method O2 Flow Rate 98.3 F 87 18 151/79 H 89 L Nasal Cannula 5 04/11/23 08:00 04/11/23 08:00 04/11/23 08:00 04/11/23 08:00 04/11/23 08:00 04/11/23 08:45 04/11/23 08:45 Laboratory Results - last 24 hr 04/10/23 20:10: WBC 4.0 L, RBC 5.03, Hgb 15.7, Hct 47.1, MCV 93.6, MCH 31.3 H, MCHC 33.4, RDW 15.2, Plt Count 193, MPV 7.8, Neut % (Auto) 78.5, Lymph % (Auto) 14.5, [place] % (Auto) 5.2, Eos % (Auto) 0.6, Baso % (Auto) 1.2, Neut # (Auto) 3.1, Lymph # (Auto) 0.6 L, [place] # (Auto) 0.2, Eos # (Auto) 0.0, Baso # (Auto) 0.1, Sodium 135 L, Potassium 3.2 L, Chloride 96 L, Carbon Dioxide 30, Anion Gap 12.2, BUN 23 H, Creatinine 0.90, Estimated Creat Clear 164, Estimated GFR 91, Est GFR ( Amer) 110, Glucose 171 H, Hemoglobin A1c 6.0, Lactate 2.1, Calcium 7.9 L, Total Bilirubin 0.7, AST 60 H, ALT 28, Alkaline Phosphatase 71, Troponin I 0.01, NT-Pro-B Natriuret Pep 165 H, Total Protein 8.5 H, Albumin 3.9, Globulin 4.6 H, Albumin/Globulin Ratio 0.8 L, Triglycerides 168 H, Cholesterol 121 L, LDL Cholesterol Direct 38.16 L, VLDL Cholesterol 34, HDL Cholesterol 28 L, Cholesterol/HDL Ratio 4.3 H, Procalcitonin 0.306 04/10/23 20:59: VBG pH 7.38, VBG pCO2 42.0, VBG pO2 81.1 H, VBG HCO3 24.5, VBG Total CO2 25.8, VBG O2 Saturation 95.8 H, VBG Base Excess -0.5, Chlamy pneumoniae PCR TNP, Adenovirus (PCR) Not detected, B. pertussis DNA (PCR) TNP, Coronavirus OC43 (PCR) Not detected, Coronavirus HKU1 (PCR) Not detected, Coronavirus 229E (PCR) Not detected, SARS-CoV-2 (PCR) Not detected, Coronavirus NL63 (PCR) Not detected, Human Metapneumovir PCR Not detected, Influenza A (H1) PCR Not detected, Influ A (H1N1/) PCR Detected A, Influenza A (H3) PCR Not detected, Influenza Type A (PCR) Not detected, Influenza Type B (PCR) Not detected, M. pneumoniae (PCR) TNP, Parainfluenza 1 (PCR) Not detected, Parainfluenza 2 (PCR) Not detected, Parainfluenza 3 (PCR) Not detected, Parainfluenza 4 (PCR) Not detected, RSV (PCR) Not detected, Entero/Rhino (PCR) Not detected 04/11/23 01:40: Lactate 2.2 H 04/11/23 04:05: WBC 3.4 L, RBC 4.71, Hgb 14.8, Hct 44.7, MCV 94.9 H, MCH 31.4 H, MCHC 33.1, RDW 14.9, Plt Count 190, MPV 8.0, Neut % (Auto) 82.1 H, Lymph % (Auto) 11.7, [place] % (Auto) 5.8, Eos % (Auto) 0.3, Baso % (Auto) 0.1, Neut # (Auto) 2.8, Lymph # (Auto) 0.4 L, [place] # (Auto) 0.2, Eos # (Auto) 0.0, Baso # (Auto) 0.0, Sodium 136, Potassium 3.9 D, Chloride 97 L, Carbon Dioxide 33 H, Anion Gap 9.9, BUN 18, Creatinine 0.70 D, Estimated Creat Clear 211, Estimated GFR 121, Est GFR ( Amer) 147 D, Glucose 176 H, Hemoglobin A1c 5.9, Lactate 1.9, Calcium 7.5 L, Triglycerides 103, Cholesterol 112 L, LDL Cholesterol Direct 39.68 L, VLDL Cholesterol 21, HDL Cholesterol 26 L, Cholesterol/HDL Ratio 4.3 H I & O for Labs for Last 24 Hours: Intake & Output 04/08/23 04/09/23 04/10/23 04/11/23 23:59 23:59 23:59 23:59 Intake Total 1914 Output Total 300 / 300 Balance 1615 / 1615 Weight 250 lb 249 lb 1.957 oz Constitutional: Present severe distress Head: Present normocephalic and atraumatic ENT: Present normal exam, normal oropharynx and mucous membranes moist Neck: Present normal inspection and full ROM Respiratory: Present respiratory distress, wheezes and diminished air movement; Absent able to speak in complete sentences Cardiac: Present S1/S2, Tachycardia and radial pulses present GI: Present soft and distention; Absent tenderness or guarding Skin: Present intact; Absent cyanosis or jaundice Neuro: Present alert, awake and oriented x 3 Extremities: Present normal inspection; Absent clubbing or cyanosis Psychiatric: Present normal affect and cooperative Meds Home Medications and Allergies Home Medications Medication Instructions Recorded Confirmed Type buprenorphine 8 mg-naloxone 2 mg 2 tab sublingual DAILY 04/11/23 04/11/23 History sublingual tablet New Prescriptions to Start Prescriptions: Allergies Allergy/AdvReac Type Severity Reaction Status Date / Time No Known Allergies Allergy Verified 04/10/23 20:35 Results Laboratory Findings 04/11/23 04:05 04/11/23 04:05 Abnormal lab findings: Abnormal Labs 04/10/23 04/10/23 04/11/23 20:10 20:59 01:40 WBC 4.0 L MCV MCH 31.3 H Neut % (Auto) Lymph # (Auto) 0.6 L VBG pO2 81.1 H VBG O2 Saturation 95.8 H Sodium 135 L Potassium 3.2 L Chloride 96 L Carbon Dioxide BUN 23 H Glucose 171 H Lactate 2.2 H Calcium 7.9 L AST 60 H NT-Pro-B Natriuret Pep 165 H Total Protein 8.5 H Globulin 4.6 H Albumin/Globulin Ratio 0.8 L Triglycerides 168 H Cholesterol 121 L LDL Cholesterol Direct 38.16 L HDL Cholesterol 28 L Cholesterol/HDL Ratio 4.3 H Influ A (H1N1) PCR Detected A 04/11/23 04:05 WBC 3.4 L MCV 94.9 H MCH 31.4 H Neut % (Auto) 82.1 H Lymph # (Auto) 0.4 L VBG pO2 VBG O2 Saturation Sodium Potassium Chloride 97 L Carbon Dioxide 33 H BUN Glucose 176 H Lactate Calcium 7.5 L AST NT-Pro-B Natriuret Pep Total Protein Globulin Albumin/Globulin Ratio Triglycerides Cholesterol 112 L LDL Cholesterol Direct 39.68 L HDL Cholesterol 26 L Cholesterol/HDL Ratio 4.3 H Influ A (H1N1/09) PCR Assessment and Plan *Assessment and plan (1) Influenza A: Status: Acute Category: Medical Code(s): J10.1 - Influenza due to other identified influenza virus with other respiratory manifestations (2) Asthma exacerbation: Status: Acute Qualifiers: Asthma severity: unspecified severity Asthma persistence: unspecified Qualified Code(s): J45.901 - Unspecified asthma with (acute) exacerbation Category: Medical Code(s): J45.901 - Unspecified asthma with (acute) exacerbation (3) Acute hypoxic respiratory failure: Status: Acute Category: Medical Code(s): J96.01 - Acute respiratory failure with hypoxia Plan Mr. Cho is a 48-year-old male greater than 30 PPD, carries a diagnosis of asthma, using albuterol on as-needed basis, not on any oxygen supplementation at baseline eported history of tobacco abuse presented to ER complaining of worsening respiratory distress along with subjective fevers that has been worsening recently for the last several days and pulmonary was called for further evaluation and management. Afebrile. Leukopenia upon admission. VBG upon admission did not show any evidence of hypoxic/hypercarbic respiratory failure. Complaints of respiratory viral PCR panel positive for influenza A. Chest x-ray upon admission did not show any evidence of dense consolidation/airspace disease. Concerning for right hilar lymphadenopathy. Patient was initiated on ceftriaxone and azithromycin along with prednisone and Tamiflu. Auscultation bilateral diffuse wheezing. Needing oxygen supplementation at 3 L. Plan: Continue ceftriaxone and azithromycin pending culture results DuoNebs every 4 hours along with Pulmicort every 12 on a scheduled basis Prednisone 40 mg daily Continue Tamiflu x 5 days # Thank you for involving pulmonary in this patient care. Will continue to follow.
--- NOTE | 2023-04-11 10:32 | PC.NURSE ---
Addendum entered by Thelma Phan RN 04/11/23 10:33: Correction, Troy JONES. Original Note: per Nito JONES keep pt's sats between 90-96%. Pt currently 90-91 on 2L NC.
--- NOTE | 2023-04-11 13:08 | PC.NURSE ---
Pt desats to 85-87% while sleeping, NC increased to 5L. Sat now 90-92%. Pt also currently refusing Suboxone.
--- NOTE | 2023-04-11 15:30 | PC.NURSE ---
late entry: [address] castro via phone that pt o2 has continued to decline to the point that he is now back on 6 lpm/nc. new orders from at this time include a back to back duo neb and a stat ct with pe protocol.
--- NOTE | 2023-04-11 15:32 | CT_ITS ---
PROCEDURE INFORMATION: Exam: CTA Chest With Contrast Exam date and time: 04/11/2023 5:23 PM Age: 48 years old Clinical indication: Other: Hypoxia, pneumonia TECHNIQUE: Imaging protocol: Computed tomographic angiography of the chest with contrast. Exam focused on the arteries. 3D rendering (Not supervised by radiologist): MIP and/or 3D reconstructed images were created by the technologist. Radiation optimization: All CT scans at this facility use at least one of these dose optimization techniques: automated exposure control; mA and/or kV adjustment per patient size (includes targeted exams where dose is matched to clinical indication); or iterative reconstruction. Contrast material: ISOVUE 370; Contrast volume: 75 ml; Contrast route: INTRAVENOUS (IV); COMPARISON: 1. CR XR CHEST PORTABLE 04/10/2023 9:21 PM 2. CR CXR CHEST(2 VIEWS-NOT PORTABLE) 02/14/2017 2:39 PM 3. CR Shoulder R 09/13/2018 11:09 AM FINDINGS: Pulmonary arteries: There is fair opacification of the pulmonary arterial tree. No central pulmonary arterial filling defect is seen. Aorta: There is atherosclerotic disease of the visualized aorta and its major branch vessels. Other arteries: Subsegmental vessels are not well evaluated due to contrast timing. Thyroid: There is heterogeneity of the thyroid gland for which nonemergent thyroid ultrasound should be considered. Lungs: Scattered areas of bronchial wall thickening which are likely chronic inflammatory. A few areas of subpleural reticulation are noted, nonspecific. There are few scattered pulmonary nodules such as a 3 mm left upper lobe nodule (image 117 series 2). Fleischner Society guidelines for follow-up are detailed below. There are scattered calcified granulomas in the lungs which most likely reflect prior granulomatous disease. Pleural spaces: Unremarkable. No pneumothorax. No pleural effusion. Heart: Unremarkable. No cardiomegaly. No pericardial effusion. Coronary arteries: There is mild coronary atherosclerotic disease/calcification although evaluation is limited secondary to the non gated nature of the study. Lymph nodes: There are mildly prominent mediastinal lymph nodes which are nonenlarged. There are calcified mediastinal lymph nodes likely reflecting prior granulomatous disease. Bones/joints: There is diffuse osseous demineralization. There is diffuse degenerative disease of the visualized osseous structures. Soft tissues: There is bilateral gynecomastia. IMPRESSION: 1. No central pulmonary arterial filling defect is seen. Subsegmental vessels are not well evaluated due to contrast timing. 2. No dense parenchymal consolidation, pleural effusion, or pneumothorax. 3. There is heterogeneity of the thyroid gland for which nonemergent thyroid ultrasound should be considered. 4. Solid pulmonary nodules measuring less than 6 mm. For patients at low risk (minimal or absent history of smoking and of other known risk factors), no routine follow-up is indicated. For patients at high risk (history of smoking or of other known risk factors), consider optional CT Chest at 12 months. (Reference: Enoc). REFERENCES: Enoc Donahue, et al. Guidelines for Management of Incidental Pulmonary Nodules Detected on CT Images: From the Fleischner Society 2017. Radiology. 2017;284(1):228-243.
[2023-04-11] MEDS: IOPAMIDOL-370 (76%);100ML BOTTLE 75 ML IV (17:50)
[2023-04-11] MEDS: 0.9 % SODIUM CHLORIDE 50 ML VIAL IV (17:50)
[2023-04-11] MEDS: SODIUM CHLORIDE 0.9% 10ML SYR (RAD ONLY) 10 ML IV (17:51)
--- NOTE | 2023-04-11 18:06 | PC.NURSE ---
Pt taken to CT for CT chest and abd for PE protocol d/t increasing hypoxia, now on 6L NC sats around 93% after back to back breathing tx.
[2023-04-11] MEDS: BUDESONIDE 0.5MG/2ML NEB 0.5 MG IH (18:25)
--- NOTE | 2023-04-11 20:04 | EXP.ACUTE.PN ---
Subjective *Date: 04/11/23 *Time: 22:37 Interval history: Patient has had increased oxygen requirement. Denies any chest pain, nausea, vomiting. Still feels quite weak. Pulmonology consulted and assisting with care. Tolerating p.o. intake. Afebrile. Medical Exam Vital signs and Labs for Last 24 Hours: Vital Signs Temp Pulse Pulse Resp BP BP Pulse Ox 04/11/23 19:00 04/11/23 18:25 96 H 04/11/23 18:25 96 H 04/11/23 18:25 92 L 04/11/23 16:00 107 H 04/11/23 17:00 04/11/23 15:28 97.7 F 95 H 20 157/86 H 91 L 04/11/23 14:49 04/11/23 13:40 89 04/11/23 13:40 85 04/11/23 13:40 94 L 04/11/23 13:01 100/63 L 04/11/23 12:00 90 04/11/23 12:53 04/11/23 11:43 74 04/11/23 11:43 76 04/11/23 11:13 98.1 F 79 20 133/79 94 L 04/11/23 10:54 04/11/23 08:00 90 04/11/23 08:45 04/11/23 08:00 89 L 04/11/23 08:00 98.3 F 87 18 151/79 H 90 L 04/11/23 06:22 82 04/11/23 06:22 86 04/11/23 06:22 94 L 04/11/23 06:07 04/11/23 04:53 04/11/23 04:00 87 04/11/23 04:00 98.4 F 86 21 146/87 H 95 04/11/23 03:00 04/11/23 01:17 104 H 21 94 L 04/11/23 01:01 93 H 04/11/23 01:01 99 H 04/11/23 00:26 99.5 F 97 H 21 131/80 93 L 04/11/23 00:07 100 F H 89 20 138/74 04/10/23 21:45 102 H 04/10/23 21:30 102 H 18 146/91 H 94 L 04/10/23 21:00 114 H 19 125/91 H 94 L 04/10/23 20:30 17 121/96 H 95 04/10/23 20:21 100 F H 86 18 135/98 H 86 L O2 Del Method O2 Flow Rate 04/11/23 19:00 Nasal Cannula 6 04/11/23 18:25 04/11/23 18:25 04/11/23 18:25 Nasal Cannula 6 04/11/23 16:00 04/11/23 17:00 Nasal Cannula 6 04/11/23 15:28 Nasal Cannula 5 04/11/23 14:49 Nasal Cannula 5 04/11/23 13:40 04/11/23 13:40 04/11/23 13:40 Nasal Cannula 5 04/11/23 13:01 04/11/23 12:00 04/11/23 12:53 Nasal Cannula 5 04/11/23 11:43 04/11/23 11:43 04/11/23 11:13 Nasal Cannula 3 04/11/23 10:54 Nasal Cannula 3 04/11/23 08:00 04/11/23 08:45 Nasal Cannula 5 04/11/23 08:00 Nasal Cannula 5 04/11/23 08:00 Nasal Cannula 4 04/11/23 06:22 04/11/23 06:22 04/11/23 06:22 Nasal Cannula 3 04/11/23 06:07 Nasal Cannula 4 04/11/23 04:53 Nasal Cannula 2 04/11/23 04:00 04/11/23 04:00 Nasal Cannula 4 04/11/23 03:00 Nasal Cannula 4 04/11/23 01:17 Nasal Cannula 4 04/11/23 01:01 04/11/23 01:01 04/11/23 00:26 Nasal Cannula 4 04/11/23 00:07 Nasal Cannula 4 04/10/23 21:45 04/10/23 21:30 Nasal Cannula 3 04/10/23 21:00 Nasal Cannula 3 04/10/23 20:30 Nasal Cannula 3 04/10/23 20:21 Room Air Intake and Output 04/11/23 04/11/23 04/11/23 07:59 15:59 23:59 Intake Total 1550 / 2755 845 / 2755 360 / 2755 Output Total 300 / 1100 800 / 1100 Balance 1250 / 1655 45 / 1655 360 / 1655 Intake: Intake, Oral Amount 200 / 1280 720 / 1280 360 / 1280 Intake, Total IV Amount 1350 / 1350 Azithromycin 500 mg In 0.9 % 250 / 250 Sodium Chloride 250 ml @ 250 mls/hr IV ONCE ONE Rx#:[id number] Ceftriaxone Sodium 1 gm In 0.9 50 / 50 % Sodium Chloride 50 ml @ 100 mls/hr IV ONCE ONE Rx#:[id number] Lactated Ringers 1000ML 1,000 1000 / 1000 ml @ 999 mls/hr IV .Q1H1M [facility] Rx#:[id number] Magnesium Sulfate in Water 2 gm 50 / 50 In 50 ml @ 50 mls/hr IV ONCE ONE Rx#:[id number] Infusion Intake 125 / 125 Lactated Ringers 1000ML 1,000 125 / 125 ml @ 999 mls/hr IV .Q1H1M [facility] Rx#:[id number] Output: Output, Urine Amount 300 / 1100 800 / 1100 Other: Number of Bowel Movements 1 Weight 113 kg Patient Weight 04/11/23 23:59 Weight 113 kg Laboratory Results - last 24 hr 04/10/23 20:10: WBC 4.0 L, RBC 5.03, Hgb 15.7, Hct 47.1, MCV 93.6, MCH 31.3 H, MCHC 33.4, RDW 15.2, Plt Count 193, MPV 7.8, Neut % (Auto) 78.5, Lymph % (Auto) 14.5, [place] % (Auto) 5.2, Eos % (Auto) 0.6, Baso % (Auto) 1.2, Neut # (Auto) 3.1, Lymph # (Auto) 0.6 L, [place] # (Auto) 0.2, Eos # (Auto) 0.0, Baso # (Auto) 0.1, Sodium 135 L, Potassium 3.2 L, Chloride 96 L, Carbon Dioxide 30, Anion Gap 12.2, BUN 23 H, Creatinine 0.90, Estimated Creat Clear 164, Estimated GFR 91, Est GFR ( Amer) 110, Glucose 171 H, Hemoglobin A1c 6.0, Lactate 2.1, Calcium 7.9 L, Total Bilirubin 0.7, AST 60 H, ALT 28, Alkaline Phosphatase 71, Troponin I 0.01, NT-Pro-B Natriuret Pep 165 H, Total Protein 8.5 H, Albumin 3.9, Globulin 4.6 H, Albumin/Globulin Ratio 0.8 L, Triglycerides 168 H, Cholesterol 121 L, LDL Cholesterol Direct 38.16 L, VLDL Cholesterol 34, HDL Cholesterol 28 L, Cholesterol/HDL Ratio 4.3 H, Procalcitonin 0.306 04/10/23 20:59: VBG pH 7.38, VBG pCO2 42.0, VBG pO2 81.1 H, VBG HCO3 24.5, VBG Total CO2 25.8, VBG O2 Saturation 95.8 H, VBG Base Excess -0.5, Chlamy pneumoniae PCR TNP, Adenovirus (PCR) Not detected, B. pertussis DNA (PCR) TNP, Coronavirus OC43 (PCR) Not detected, Coronavirus HKU1 (PCR) Not detected, Coronavirus 229E (PCR) Not detected, SARS-CoV-2 (PCR) Not detected, Coronavirus NL63 (PCR) Not detected, Human Metapneumovir PCR Not detected, Influenza A (H1) PCR Not detected, Influ A (H1N1/) PCR Detected A, Influenza A (H3) PCR Not detected, Influenza Type A (PCR) Not detected, Influenza Type B (PCR) Not detected, M. pneumoniae (PCR) TNP, Parainfluenza 1 (PCR) Not detected, Parainfluenza 2 (PCR) Not detected, Parainfluenza 3 (PCR) Not detected, Parainfluenza 4 (PCR) Not detected, RSV (PCR) Not detected, Entero/Rhino (PCR) Not detected 04/11/23 01:40: Lactate 2.2 H 04/11/23 04:05: WBC 3.4 L, RBC 4.71, Hgb 14.8, Hct 44.7, MCV 94.9 H, MCH 31.4 H, MCHC 33.1, RDW 14.9, Plt Count 190, MPV 8.0, Neut % (Auto) 82.1 H, Lymph % (Auto) 11.7, [place] % (Auto) 5.8, Eos % (Auto) 0.3, Baso % (Auto) 0.1, Neut # (Auto) 2.8, Lymph # (Auto) 0.4 L, [place] # (Auto) 0.2, Eos # (Auto) 0.0, Baso # (Auto) 0.0, Sodium 136, Potassium 3.9 D, Chloride 97 L, Carbon Dioxide 33 H, Anion Gap 9.9, BUN 18, Creatinine 0.70 D, Estimated Creat Clear 211, Estimated GFR 121, Est GFR ( Amer) 147 D, Glucose 176 H, Hemoglobin A1c 5.9, Lactate 1.9, Calcium 7.5 L, Triglycerides 103, Cholesterol 112 L, LDL Cholesterol Direct 39.68 L, VLDL Cholesterol 21, HDL Cholesterol 26 L, Cholesterol/HDL Ratio 4.3 H I & O for Labs for Last 24 Hours: Intake & Output 04/08/23 04/09/23 04/10/23 04/11/23 23:59 23:59 23:59 23:59 Intake Total 2755 / 2755 Output Total 1100 / 1100 Balance 1655 / 1655 Weight 113.398 kg 113 kg Constitutional: Present mild distress, obese and chronically ill appearing Head: Present atraumatic and normocephalic ENT: Present normal exam Comment:: Facial plethora Respiratory: Present rhonchi, wheezes and crackles Cardiac: Present Reg Rate and Rhythm GI: Present normal bowel sounds; Absent tenderness Extremities: Present normal inspection and full ROM Skin: Present intact; Absent erythema Neuro: Present Grossly Intact, alert, awake, oriented x 3 and moves all extremities Assessment and Plan *Assessment and plan (1) Influenza A: Status: Acute Category: Medical Code(s): J10.1 - Influenza due to other identified influenza virus with other respiratory manifestations (2) Acute exacerbation of chronic obstructive pulmonary disease: Status: Acute Category: Medical Code(s): J44.1 - Chronic obstructive pulmonary disease with (acute) exacerbation (3) Acute hypoxic respiratory failure: Status: Acute Category: Medical Code(s): J96.01 - Acute respiratory failure with hypoxia (4) Sepsis: Status: Acute Qualifiers: Sepsis acute organ dysfunction status: without acute organ dysfunction Sepsis type: sepsis due to unspecified organism Qualified Code(s): A41.9 - Sepsis, unspecified organism Category: Medical Code(s): A41.9 - Sepsis, unspecified organism Plan This is a 48-year-old male with past medical history of substance abuse and tobacco abuse who presented to the emergency department in respiratory distress. Patient has noted to have flu a. He is a tobacco user, likely undiagnosed COPD as well. Pulmonology consulted and assisting with care. Continues to require inpatient management. Problems addressed as follows Influenza A Acute COPD exacerbation -Pulmonology consulted, discussed case today, recommend continuing antibiotics, antivirals. Continue with goal sats greater than 90%, currently on 4 L. -Given respiratory symptoms oxygen requirement, recommend CTA to evaluate for PE today. Personally reviewed, no appreciable pulmonary emboli. -DuoNebs every 4 hours.; Pulmicort twice daily -Prednisone 40 mg daily - white cell count 3.4, hemoglobin 14.8. Kidney function normal with BUN 18 and creatinine of 0.7. Electrolytes within normal range. Repeat CBC, CMP, magnesium ordered for the morning. Tobacco abuse Nicotine patch Tobacco cessation education Obesity complicates all aspects of care. DVT PPx PLOV Full code
[2023-04-11] MEDS: ENOXAPARIN 40MG/0.4ML SYRINGE 40 MG SQ (21:38)
--- NOTE | 2023-04-11 22:00 | PC.NURSE ---
Patient alert and orient. Denies pain. Patient's respirations easy and even on 6L per NC. Took medication without any distress noted. Patient noted when OOB to get SOB easily. After patient sits/rest and takes a few deep breathes, SOB is resolved with the use of 02.
--- NOTE | 2023-04-11 23:30 | PC.NURSE ---
Patient changed from room 217 to room 209.
[2023-04-12] VITALS (13 sets, daily range): BP systolic 134–162; BP diastolic 78–90; PULSE 72–89; RESP 16–23; TEMP 36.6–37; O2SAT 86–93; BMI 36.8
[2023-04-12] MEDS: IPRATROPIUM/ALBUTEROL 3 ML NEB IH ×6 (02:03→22:17)
[2023-04-12] MEDS: BUDESONIDE 0.5MG/2ML NEB 0.5 MG IH ×2 (05:46→17:58)
[2023-04-12 07:18] LABS: Alanine Aminotransferase 28 U/L (12-78); Albumin Level 3.5 g/dl (3.5-5.0); Albumin/Globulin Ratio 0.9 (1.1-1.8); Alkaline Phosphatase 61 U/L (38-126); Aspartate Amino Transferase 62 U/L (17-59); Basophils % 0.9 % (0.1-2.0); Bilirubin,Total 0.6 mg/dl (0.2-1.3); Blood Urea Nitrogen 14 mg/dl (9-20); Calcium 7.6 mg/dl (8.4-10.2); Carbon Dioxide 35 mmol/L (22.0-30.0); Chloride 99 mmol/L (98-107); Creatinine Clearance Estimated 211 mL/min (50-200); Eosinophils % 0.4 % (0.1-12.0); Estimated Glomerular Filt Rate 121 ml/min (>60); GFR (African American) 147 ML/MIN (>60); Glucose 101 mg/dl (74-100); Hematocrit 45.8 % (42.0-52.0); Hemoglobin 14.8 g/dL (14.1-18.0); Lymphocytes # 1.1 K/mm3 (0.7-4.5); Magnesium 2.4 mg/dl (1.6-2.3); Mean Corpuscular HGB Conc 32.3 g/dL (31.8-35.4); Mean Corpuscular Hemoglobin 31.1 pg (27.0-31.2); Mean Corpuscular Volume 96.3 fl (80-94); Mean Platelet Volume 7.4 fl (7.4-10.4); Monocytes # 0.2 K/mm3 (0.1-1.0); Monocytes % 6.3 % (1.7-9.3); Neutrophils # 1.8 K/mm3 (1.8-7.8); Neutrophils % 58.5 % (37.0-80.0); Platelet Count 179 K/mm3 (142-424); Red Blood Count 4.76 M/mm3 (4.60-6.20); Red Cell Distribution Width 15.3 % (11.5-17.5); Sodium 137 mmol/L (136-145); Total Protein,Serum 7.5 g/dl (6.3-8.2); White Blood Count 3.1 K/mm3 (4.8-10.8)
[2023-04-12 08:02] LABS: Anion Gap 6.3 mEq/L (5-15); Potassium 3.3 mmoL/L (3.5-5.1)
--- NOTE | 2023-04-12 09:29 | EXP.PULM.PN ---
Subjective *Date: 04/12/23 *Time: 11:05 Interval history: No acute respiratory events overnight. Pulmonology Exam Inpatient Vital signs and Labs for Last 24 Hours: Temp Pulse Resp BP Pulse Ox O2 Del Method O2 Flow Rate 98.5 F 89 18 162/90 H 91 L Nasal Cannula 3.5 04/12/23 08:00 04/12/23 08:00 04/12/23 08:00 04/12/23 08:00 04/12/23 08:00 04/12/23 08:00 04/12/23 08:00 Laboratory Results - last 24 hr 04/12/23 06:49: WBC 3.1 L, RBC 4.76, Hgb 14.8, Hct 45.8, MCV 96.3 H, MCH 31.1, MCHC 32.3, RDW 15.3, Plt Count 179, MPV 7.4, Neut % (Auto) 58.5, Lymph % (Auto) 34.0, Prentiss % (Auto) 6.3, Eos % (Auto) 0.4, Baso % (Auto) 0.9, Neut # (Auto) 1.8, Lymph # (Auto) 1.1, Prentiss # (Auto) 0.2, Eos # (Auto) 0.0, Baso # (Auto) 0.0, Sodium 137, Potassium 3.3 L, Chloride 99, Carbon Dioxide 35 H, Anion Gap 6.3, BUN 14, Creatinine 0.70, Estimated Creat Clear 211, Estimated GFR 121, Est GFR ( Amer) 147, Glucose 101 H, Calcium 7.6 L, Magnesium 2.4 H, Total Bilirubin 0.6, AST 62 H, ALT 28, Alkaline Phosphatase 61, Total Protein 7.5, Albumin 3.5 D, Globulin 4.0 H, Albumin/Globulin Ratio 0.9 L I & O for Labs for Last 24 Hours: Intake & Output 04/09/23 04/10/23 04/11/23 04/12/23 23:59 23:59 23:59 23:59 Intake Total 2755 / 2995 710 / 710 Output Total 1500 / 1500 Balance 1255 / 1495 710 / 710 Weight 250 lb 249 lb 1.957 oz 249 lb 1.957 oz Constitutional: Present severe distress Head: Present normocephalic and atraumatic ENT: Present normal exam, normal oropharynx and mucous membranes moist Neck: Present normal inspection and full ROM Respiratory: Present respiratory distress, wheezes, diminished air movement and able to speak in complete sentences Cardiac: Present S1/S2, Tachycardia and radial pulses present GI: Present soft and distention; Absent tenderness or guarding Skin: Present intact; Absent cyanosis or jaundice Neuro: Present alert, awake and oriented x 3 Extremities: Present normal inspection; Absent clubbing or cyanosis Psychiatric: Present normal affect and cooperative Assessment and Plan *Assessment and plan (1) Influenza A: Status: Acute Category: Medical Code(s): J10.1 - Influenza due to other identified influenza virus with other respiratory manifestations (2) Asthma exacerbation: Status: Acute Qualifiers: Asthma persistence: unspecified Asthma severity: unspecified severity Qualified Code(s): J45.901 - Unspecified asthma with (acute) exacerbation Category: Medical Code(s): J45.901 - Unspecified asthma with (acute) exacerbation (3) Acute hypoxic respiratory failure: Status: Acute Category: Medical Code(s): J96.01 - Acute respiratory failure with hypoxia Plan Mr. Cho is a 48-year-old male greater than 30 PPD, carries a diagnosis of asthma, using albuterol on as-needed basis, not on any oxygen supplementation at baseline eported history of tobacco abuse presented to ER complaining of worsening respiratory distress along with subjective fevers that has been worsening recently for the last several days and pulmonary was called for further evaluation and management. Afebrile. Leukopenia upon admission. VBG upon admission did not show any evidence of hypoxic/hypercarbic respiratory failure. Complaints of respiratory viral PCR panel positive for influenza A. Chest x-ray upon admission did not show any evidence of dense consolidation/airspace disease. Concerning for right hilar lymphadenopathy. Patient was initiated on ceftriaxone and azithromycin along with prednisone and Tamiflu. On initial examination auscultation bilateral diffuse wheezing. Needing oxygen supplementation at 3 L. Interval update: Worsening respiratory events with increasing oxygen needs and wheezing yesterday, symptoms escalated to 6 L. CTA performed did not show any obvious evidence of pulmonary embolism,no dense consolidative airspace disease/groundglass opacities noted. Tree-in-bud opacities noted. Symptoms improved after receiving nebulization therapies Auscultation continues to bilateral diffuse wheezing. Patient does not appear to be in any respiratory distress. Plan: -Continue oxygen supplementation to maintain O2 saturation below 90% and above Continue ceftriaxone and azithromycin pending culture results DuoNebs every 4 hours along with Pulmicort every 12 on a scheduled basis Continue prednisone 40 mg daily Continue Tamiflu x 5 days # Thank you for involving pulmonary in this patient care. Will continue to follow.
[2023-04-12] MEDS: ENOXAPARIN 40MG/0.4ML SYRINGE 40 MG SQ (10:17)
[2023-04-12] MEDS: CALCIUM GLUCONATE 1,000 MG in 0.9 % SODIUM CHLORIDE 50 ML 60 MG IV (10:17)
[2023-04-12] MEDS: predniSONE 20MG TAB 40 MG PO (10:17)
[2023-04-12] MEDS: POTASSIUM CHLORIDE 20MEQ TAB 20 MEQ PO ×2 (10:18→20:32)
[2023-04-12] MEDS: OSELTAMIVIR 75MG CAPSULE 75 MG PO ×2 (10:18→20:32)
--- NOTE | 2023-04-12 11:45 | PC.NURSE ---
PER DR SALAZAR WE CAN DR SURFACE LAY OUT TECHNICIAN.
--- NOTE | 2023-04-12 15:33 | P.PN_ITS ---
Subjective *Date: 04/12/23 *Time: 15:33 Interval history: Continues to be short of breath. On 3 to 5 L oxygen over the past 24 hours. No nausea or vomiting. Desats quickly when he takes his oxygen off. Encouraged to get to the bedside chair today. Medical Exam Vital signs and Labs for Last 24 Hours: Vital Signs Temp Pulse Pulse Resp BP Pulse Ox O2 Del Method 04/12/23 15:30 98.6 F 85 16 159/89 H 91 L Nasal Cannula 04/12/23 14:30 89 04/12/23 14:30 89 04/12/23 13:00 Nasal Cannula 04/12/23 13:31 84 17 86 L Room Air 04/12/23 12:00 98.5 F 87 18 156/87 H 93 L Nasal Cannula 04/12/23 10:15 Nasal Cannula 04/12/23 11:00 Nasal Cannula 04/12/23 09:00 Nasal Cannula 04/12/23 10:00 80 04/12/23 10:00 82 04/12/23 07:00 Nasal Cannula 04/12/23 08:00 98.5 F 89 18 162/90 H 91 L Nasal Cannula 04/12/23 05:45 72 04/12/23 05:45 78 04/12/23 05:45 91 L Nasal Cannula 04/12/23 04:00 97.9 F 84 17 134/78 90 L Nasal Cannula 04/11/23 20:00 Nasal Cannula 04/12/23 01:00 Nasal Cannula 04/11/23 23:00 Nasal Cannula 04/12/23 02:03 80 04/12/23 02:03 80 04/12/23 00:00 98.5 F 73 23 154/89 H 90 L Nasal Cannula 04/11/23 22:49 81 04/11/23 22:49 81 04/11/23 21:00 Nasal Cannula 04/11/23 20:00 98 F 88 17 137/88 96 04/11/23 19:00 Nasal Cannula 04/11/23 18:25 96 H 04/11/23 18:25 96 H 04/11/23 18:25 92 L Nasal Cannula 04/11/23 16:00 107 H 04/11/23 17:00 Nasal Cannula O2 Flow Rate 04/12/23 15:30 3 04/12/23 14:30 04/12/23 14:30 04/12/23 13:00 3 04/12/23 13:31 04/12/23 12:00 3 04/12/23 10:15 5 04/12/23 11:00 3 04/12/23 09:00 5 04/12/23 10:00 04/12/23 10:00 04/12/23 07:00 3.5 04/12/23 08:00 3.5 04/12/23 05:45 04/12/23 05:45 04/12/23 05:45 3.5 04/12/23 04:00 04/11/23 20:00 6 04/12/23 01:00 6 04/11/23 23:00 6 04/12/23 02:03 04/12/23 02:03 04/12/23 00:00 5 04/11/23 22:49 04/11/23 22:49 04/11/23 21:00 6 04/11/23 20:00 04/11/23 19:00 6 04/11/23 18:25 04/11/23 18:25 04/11/23 18:25 6 04/11/23 16:00 04/11/23 17:00 6 Intake and Output 04/11/23 04/12/23 04/12/23 23:59 07:59 15:59 Intake Total 360 / 2995 240 / 920 680 / 920 Output Total 400 / 1500 0 / 0 Balance -40 / 1495 240 / 920 680 / 920 Intake: Intake, Oral Amount 360 / 1520 240 / 920 680 / 920 Output: Output, Urine Amount 400 / 1500 0 / 0 Other: Number of Unmeasured Voids 0 2 Weight 113 kg Patient Weight 04/12/23 23:59 Weight 113 kg Laboratory Results - last 24 hr 04/12/23 06:49: WBC 3.1 L, RBC 4.76, Hgb 14.8, Hct 45.8, MCV 96.3 H, MCH 31.1, MCHC 32.3, RDW 15.3, Plt Count 179, MPV 7.4, Neut % (Auto) 58.5, Lymph % (Auto) 34.0, Mcdonough % (Auto) 6.3, Eos % (Auto) 0.4, Baso % (Auto) 0.9, Neut # (Auto) 1.8, Lymph # (Auto) 1.1, Mcdonough # (Auto) 0.2, Eos # (Auto) 0.0, Baso # (Auto) 0.0, Sodium 137, Potassium 3.3 L, Chloride 99, Carbon Dioxide 35 H, Anion Gap 6.3, BUN 14, Creatinine 0.70, Estimated Creat Clear 211, Estimated GFR 121, Est GFR ( Amer) 147, Glucose 101 H, Calcium 7.6 L, Magnesium 2.4 H, Total Bilirubin 0.6, AST 62 H, ALT 28, Alkaline Phosphatase 61, Total Protein 7.5, Albumin 3.5 D, Globulin 4.0 H, Albumin/Globulin Ratio 0.9 L I & O for Labs for Last 24 Hours: Intake & Output 04/09/23 04/10/23 04/11/23 04/12/23 23:59 23:59 23:59 23:59 Intake Total 2755 / 2995 920 / 920 Output Total 1500 / 1500 0 / 0 Balance 1255 / 1495 920 / 920 Weight 113.398 kg 113 kg 113 kg Constitutional: Present no acute distress, obese and chronically ill appearing Head: Present atraumatic and normocephalic ENT: Present normal exam Comment:: Facial plethora Respiratory: Present rhonchi, wheezes and crackles Cardiac: Present Reg Rate and Rhythm GI: Present normal bowel sounds; Absent tenderness Extremities: Present normal inspection and full ROM Skin: Present intact; Absent erythema Neuro: Present Grossly Intact, alert, awake, oriented x 3 and moves all extremities Assessment and Plan *Assessment and plan (1) Influenza A: Status: Acute Category: Medical Code(s): J10.1 - Influenza due to other identified influenza virus with other respiratory manifestations (2) Acute exacerbation of chronic obstructive pulmonary disease: Status: Acute Category: Medical Code(s): J44.1 - Chronic obstructive pulmonary disease with (acute) exacerbation (3) Acute hypoxic respiratory failure: Status: Acute Category: Medical Code(s): J96.01 - Acute respiratory failure with hypoxia (4) Sepsis: Status: Acute Qualifiers: Sepsis acute organ dysfunction status: without acute organ dysfunction Sepsis type: sepsis due to unspecified organism Qualified Code(s): A41.9 - Sepsis, unspecified organism Category: Medical Code(s): A41.9 - Sepsis, unspecified organism Plan This is a 48-year-old male with past medical history of substance abuse and tobacco abuse who presented to the emergency department in respiratory distress. Patient has noted to have flu a. He is a tobacco user, likely undiagnosed COPD as well. Pulmonology consulted and assisting with care. Continues to require inpatient management. Continues to have significant oxygen requirement. Problems addressed as follows Influenza A Acute COPD exacerbation -Pulmonology consulted, discussed case today, recommend continuing antibiotics, antivirals. Continue with goal sats greater than 90%, currently on 5 L. -Continue Tamiflu 75 mg twice daily. Continue ceftriaxone IV daily -DuoNebs every 4 hours.; Pulmicort twice daily -Prednisone 40 mg daily - white cell count 3.1, hemoglobin 14.8. Kidney function normal with BUN 14 and creatinine of 0.7. Potassium 3.3, magnesium 2.4. Repeat CBC, CMP, magnesium or dered for the morning. Tobacco abuse Nicotine patch Tobacco cessation education Obesity complicates all aspects of care. DVT PPx PLOV Full code
--- NOTE | 2023-04-12 18:38 | PC.NURSE ---
A&OX4. PT HAS TOLERATED O2 WELL THIS SHIFT. STARTED THE SHIFT ON 3L, WENT TO 5L, AND IS CURRENTLY ON 3.5L NC. RESPIRATIONS REGULAR AND UNLABORED. COARSE CRACKLES AND WHEEZING NOTED. IN DROPLET PRECAUTIONS DUE TO H1N1. HAND TECHNOLOGY ASSISTANT EQUAL. +2 PULSES NOTED THROUGHOUT. NO EDEMA NOTED. ACTIVE BOWEL SOUNDS HEARD IN ALL 4 QUADRANTS. SOFT AND NONTENDER. NO BM REPORTED THIS SHIFT. VOIDS PER BATHROOM INDEPENDENTLY. STEADY GAIT NOTED. FAMILY CURRENTLY AT BEDSIDE. NO PAIN REPORTED THUS FAR. NO NAUSEA REPORTED THUS FAR. BED IN LOWEST POSITION. CALL LIGHT WITHIN REACH. VSS. ENCOURAGED PT TO SIT UP THROUGHOUT THE DAY AND USE INCENTIVE SPIROMETER.
[2023-04-13] VITALS (8 sets, daily range): BP systolic 135–154; BP diastolic 86–106; PULSE 68–90; RESP 17–78; TEMP 36.3–36.9; O2SAT 90–96; BMI 36.8
[2023-04-13] MEDS: IPRATROPIUM/ALBUTEROL 3 ML NEB IH ×4 (01:39→14:41)
[2023-04-13 05:44] LABS: Neisseria gonorrhoeae, NAA Negative (Negative)
[2023-04-13] MEDS: BUDESONIDE 0.5MG/2ML NEB 0.5 MG IH (06:11)
[2023-04-13 06:45] LABS: Alanine Aminotransferase 44 U/L (12-78); Albumin Level 3.2 g/dl (3.5-5.0); Albumin/Globulin Ratio 0.8 (1.1-1.8); Alkaline Phosphatase 56 U/L (38-126); Anion Gap 2.7 mEq/L (5-15); Aspartate Amino Transferase 78 U/L (17-59); Bilirubin,Total 0.6 mg/dl (0.2-1.3); Blood Urea Nitrogen 13 mg/dl (9-20); Calcium 7.6 mg/dl (8.4-10.2); Carbon Dioxide 36 mmol/L (22.0-30.0); Chloride 101 mmol/L (98-107); Creatinine Clearance Estimated 246 mL/min (50-200); Estimated Glomerular Filt Rate 145 ml/min (>60); GFR (African American) 176 ML/MIN (>60); Glucose 110 mg/dl (74-100); Potassium 3.7 mmoL/L (3.5-5.1); Sodium 136 mmol/L (136-145); Total Protein,Serum 7.2 g/dl (6.3-8.2)
[2023-04-13] MEDS: ENOXAPARIN 40MG/0.4ML SYRINGE 40 MG SQ (10:00)
[2023-04-13] MEDS: POTASSIUM CHLORIDE 20MEQ TAB 20 MEQ PO (10:00)
[2023-04-13] MEDS: predniSONE 20MG TAB 40 MG PO (10:00)
[2023-04-13] MEDS: NICOTINE 21MG/24HR PATCH 21 MG TD (10:01)
[2023-04-13] MEDS: OSELTAMIVIR 75MG CAPSULE 75 MG PO (10:01)
--- NOTE | 2023-04-13 10:07 | EXP.PULM.PN ---
Subjective *Date: 04/13/23 *Time: 12:00 Interval history: No acute respiratory events overnight. Patient admits significant improvement in his respiratory symptoms. Pulmonology Exam Inpatient Vital signs and Labs for Last 24 Hours: Temp Pulse Resp BP Pulse Ox O2 Del Method O2 Flow Rate 97.3 F L 68 78 H 145/88 H 91 L Nasal Cannula 1 04/13/23 08:00 04/13/23 09:20 04/13/23 08:00 04/13/23 08:00 04/13/23 09:20 04/13/23 09:20 04/13/23 09:20 Laboratory Results - last 24 hr 04/10/23 20:45: C. trachomatis (EZEQUIEL) Negative, N. gonorrhoeae (EZEQUIEL) Negative 04/13/23 06:19: Sodium 136, Potassium 3.7, Chloride 101, Carbon Dioxide 36 H, Anion Gap 2.7 L, BUN 13, Creatinine 0.60 L, Estimated Creat Clear 246, Estimated GFR 145, Est GFR ( Amer) 176, Glucose 110 H, Calcium 7.6 L, Total Bilirubin 0.6, AST 78 H D, ALT 44 D, Alkaline Phosphatase 56, Total Protein 7.2, Albumin 3.2 L, Globulin 4.0 H, Albumin/Globulin Ratio 0.8 L I & O for Labs for Last 24 Hours: Intake & Output 04/10/23 04/11/23 04/12/23 04/13/23 23:59 23:59 23:59 23:59 Intake Total 2755 / 2995 920 / 1040 240 / 240 Output Total 1500 / 1500 0 / 0 0 / 0 Balance 1255 / 1495 920 / 1040 240 / 240 Weight 250 lb 249 lb 1.957 oz 249 lb 1.957 oz 249 lb 1.957 oz Constitutional: Present severe distress Head: Present normocephalic and atraumatic ENT: Present normal exam, normal oropharynx and mucous membranes moist Neck: Present normal inspection and full ROM Respiratory: Present respiratory distress, wheezes and able to speak in complete sentences Cardiac: Present S1/S2, Tachycardia and radial pulses present GI: Present soft and distention; Absent tenderness or guarding Skin: Present intact; Absent cyanosis or jaundice Neuro: Present alert, awake and oriented x 3 Extremities: Present normal inspection; Absent clubbing or cyanosis Psychiatric: Present normal affect and cooperative Assessment and Plan *Assessment and plan (1) Influenza A: Status: Acute Category: Medical Code(s): J10.1 - Influenza due to other identified influenza virus with other respiratory manifestations (2) Asthma exacerbation: Status: Acute Qualifiers: Asthma persistence: unspecified Asthma severity: unspecified severity Qualified Code(s): J45.901 - Unspecified asthma with (acute) exacerbation Category: Medical Code(s): J45.901 - Unspecified asthma with (acute) exacerbation (3) Acute hypoxic respiratory failure: Status: Acute Category: Medical Code(s): J96.01 - Acute respiratory failure with hypoxia Plan Mr. Cho is a 48-year-old male greater than 30 PPD, carries a diagnosis of asthma, using albuterol on as-needed basis, not on any oxygen supplementation at baseline eported history of tobacco abuse presented to ER complaining of worsening respiratory distress along with subjective fevers that has been worsening recently for the last several days and pulmonary was called for further evaluation and management. Afebrile. Leukopenia upon admission. VBG upon admission did not show any evidence of hypoxic/hypercarbic respiratory failure. Complaints of respiratory viral PCR panel positive for influenza A. Chest x-ray upon admission did not show any evidence of dense consolidation/airspace disease. Concerning for right hilar lymphadenopathy. Patient was initiated on ceftriaxone and azithromycin along with prednisone and Tamiflu. On initial examination auscultation bilateral diffuse wheezing. Needing oxygen supplementation at 3 L. CTA performed did not show any obvious evidence of pulmonary embolism,no dense consolidative airspace disease/groundglass opacities noted. Tree-in-bud opacities noted. Interval update: No acute respiratory events overnight. Continued recent ablation therapies. Significant improvement in wheezing. Room air saturations recorded 84% this morning at rest. Initiated back on 2 L nasal cannula oxygen supplementation Plan: Continue oxygen supplementation to maintain O2 saturation below 90% and above Continue ceftriaxone and azithromycin , can be weaned to cefdinir to complete total of 5-day course upon discharge Trelegy 200 inhaler along with DuoNebs every 6 hours on as-needed basis Continue prednisone 40 mg daily for a total of 5 days Continue Tamiflu x 5 days # Thank you for involving pulmonary in this patient care. Will follow the patient in pulmonary clinic 2 to 3 weeks post discharge. Pulmonary services will be unavailable to provide for both inpatient and outpatient patient care services starting 04/14/2022 untill 04/22/2022. We will resume direct inpatient and pulmonary services starting 04/23/2022, 8AM.
--- NOTE | 2023-04-13 12:14 | P.DS_ITS ---
General Admission date:: 04/11/23 Discharge date: 04/13/23 HPI HPI HPI: This is a 48-year-old male with a past medical history of Suboxone use and tobacco abuse who presents to the emergency department today with complaints of shortness of breath. He reports Sunday he began shortness of breath with cough and mild fever. He reports being substantially worse over the last several days. He denies any sick contacts but says that he is felt like he has had the flu. He denies any chest pain. Does endorse tobacco use. Emergency Department workup significant for mild respiratory distress on arrival. Patient was notably tachycardic and hypoxic in the 80s requiring requiring 4 L nasal cannula. Emergency department workup significant for flu a positive. Potassium of 3.2. Mildly elevated glucose at 171. He received magnesium, steroids and breathing treatments in the emergency department with improvement in respiratory symptoms. Due to his hypoxia and new oxygen requirement and flu a diagnosis, he will be admitted to the hospitalist service for further evaluation and management. Hospital Course Hospital Course Hospital Course: This is a 48-year-old male with past medical history of substance abuse and tobacco abuse who presented to the emergency department in respiratory distress. Patient has noted to have flu a. He is a tobacco user, likely undiagnosed COPD as well. Pulmonology consulted and assisting with care. Patient is weaned off oxygen, tolerating p.o. intake, ambulating independently. Afebrile for over 24 hours. Stable for discharge home. Problems addressed as follows: Influenza A Acute COPD exacerbation -Pulmonology consulted, patient has done well with gradual weaning of oxygen and treatment for his asthma exacerbation secondary to flu. Was started on antibiotics and Tamiflu. At discharge we will continue 5-day course of Tamiflu, transition to cefdinir to complete 5 days of antibiotics. Will initiate nebulizer for home, DuoNebs sent to patient's pharmacy. Initiated on once daily long-acting inhaler. Complete 5 days of steroids. Pleased overall with wilmar barrett's response. Weaned to room air, stable for discharge home. Follow-up with pulmonology as an outpatient. Labs show improvement with normalization of white count and stable kidney function. Tobacco abuse: Nicotine patch during admission Spent 30 minutes in discharge counseling, documentation, chart review, and direct care with patient. Exam Data for Last 24 hours Vital signs and Labs for Last 24 Hours: Temp Pulse Resp BP Pulse Ox O2 Del Method O2 Flow Rate 97.5 F L 84 22 154/106 H 91 L Room Air 1 04/13/23 11:32 04/13/23 11:32 04/13/23 11:32 04/13/23 11:32 04/13/23 11:32 04/13/23 11:32 04/13/23 09:20 Laboratory Results - last 24 hr 04/10/23 20:45: C. trachomatis (EZEQUIEL) Negative, N. gonorrhoeae (EZEQUIEL) Negative 04/13/23 06:19: Sodium 136, Potassium 3.7, Chloride 101, Carbon Dioxide 36 H, Anion Gap 2.7 L, BUN 13, Creatinine 0.60 L, Estimated Creat Clear 246, Estimated GFR 145, Est GFR ( Amer) 176, Glucose 110 H, Calcium 7.6 L, Total Bilirubin 0.6, AST 78 H D, ALT 44 D, Alkaline Phosphatase 56, Total Protein 7 .2, Albumin 3.2 L, Globulin 4.0 H, Albumin/Globulin Ratio 0.8 L I & O for Last 24 hours: Intake & Output 04/10/23 04/11/23 04/12/23 04/13/23 23:59 23:59 23:59 23:59 Intake Total 2755 / 2995 920 / 1040 240 / 240 Output Total 1500 / 1500 0 / 0 0 / 0 Balance 1255 / 1495 920 / 1040 240 / 240 Weight 113.398 kg 113 kg 113 kg 113 kg Constitutional Constitutional: no acute distress, obese and cooperative *Routine HEENT Exam Head: Present normocephalic Eye: Present EOMI and PERRL ENT: Present mucous membranes moist *Routine Neck Exam Neck: Present supple; Absent lymphadenopathy *Routine Respiratory Exam Respiratory: Present wheezes and normal respiratory effort; Absent rhonchi or crackles *Routine Cardiovascular Exam Cardiovascular: Present RRR *Routine Abdominal Exam Abdominal: Present soft and normoactive bowel sounds; Absent tenderness *Routine Extremities Exam Extremities: Absent cyanosis, clubbing or edema *Routine Skin Exam Skin: Present warm; Absent rash *Routine Neurological Exam Neurological: Present alert, oriented X3 and moving all extremities; Absent altered mental status Results Data Completed and Pending Labs on day of discharge: Labs from last 24 hours 04/13/23 04/10/23 06:19 20:45 Sodium 136 Potassium 3.7 Chloride 101 Carbon Dioxide 36 H Anion Gap 2.7 L BUN 13 Creatinine 0.60 L Estimated Creat Clear 246 Estimated GFR 145 Est GFR ( Amer) 176 Glucose 110 H Calcium 7.6 L Total Bilirubin 0.6 AST 78 H D ALT 44 D Alkaline Phosphatase 56 Total Protein 7.2 Albumin 3.2 L Globulin 4.0 H Albumin/Globulin Ratio 0.8 L C. trachomatis (EZEQUIEL) Negative N. gonorrhoeae (EZEQUIEL) Negative DS: Diagnosis Discharge Diagnosis (1) Influenza A: Status: Acute Code(s): J10.1 - Influenza due to other identified influenza virus with other respiratory manifestations (2) Asthma exacerbation: Status: Acute Code(s): J45.901 - Unspecified asthma with (acute) exacerbation Qualifiers: Asthma persistence: unspecified Asthma severity: unspecified severity Qualified Code(s): J45.901 - Unspecified asthma with (acute) exacerbation (3) Acute hypoxic respiratory failure: Status: Acute Code(s): J96.01 - Acute respiratory failure with hypoxia Meds Home Medications and Allergies Home Medications Medication Instructions Recorded Confirmed Type cefdinir 300 mg capsule 300 mg PO BID 5 days #10 caps 04/13/23 Rx fluticasone fur. 200 mcg-umeclid 1 inh inhalation DAILY 30 days #1 04/13/23 Rx 62.5 mcg-vilant 25 mcg ea inhalat.powder (Trelegy Ellipta) ipratropium 0.5 mg-albuterol 3 mg 3 ml inhalation Q4-6H PRN Dyspnea 04/13/23 Rx (2.5 mg base)/3 mL nebulization 30 days #100 ea soln nicotine 21 mg/24 hr daily 21 mg transdermal DAILYP PRN 04/13/23 Rx transdermal patch Nicotine Cravings 28 days #28 ea oseltamivir 75 mg capsule (Tamiflu) 75 mg PO BID 4 days #8 caps 04/13/23 Rx prednisone 20 mg tablet 40 mg PO DAILY 2 days #4 tabs 04/13/23 Rx New Prescriptions to Start Prescriptions: cefstoneyir Andrew Simmons [id number] [Trelegy Ellipta] Andrew Simmons ipratropium-albuterol Andrew Simmons nicotine Andrew Simmons oseltamivir [Tamiflu] Troy,Andrew prednisone Andrew Simmons Allergies Allergy/AdvReac Type Severity Reaction Status Date / Time No Known Allergies Allergy Verified 04/10/23 20:35 Discharge Plan Disposition Patient Disposition: Home, Self-Care Condition: Fair Discharge Order Discharge Orders: Discharge Order (Routine); Ordered 04/13/23 Ordered By: Andrew Simmons Follow up Plan Follow up with: Karla Butts PA [Primary Care Provider] - 04/19/23 11:15 am Sukhwinder Miramontes MD [Physician] - 04/30/23 1:15 pm Prescriptions/Medication Reconciliation: New prednisone 20 mg Tablet 40 mg PO DAILY 2 Days Qty: 4 0RF oseltamivir [Tamiflu] 75 mg Capsule 75 mg PO BID 4 Days Qty: 8 0RF nicotine 21 mg/24 hr Patch 24 Hour 21 mg transdermal DAILYP PRN (Reason: Nicotine Cravings) 28 Days Qty: 28 0RF Trelegy Ellipta 200-62.5-25 mcg Blister With Device 1 inh inhalation DAILY 30 Days Qty: 1 0RF cefdinir 300 mg capsule 300 mg PO BID 5 Days Qty: 10 0RF ipratropium-albuterol 0.5 mg-3 mg(2.5 mg base)/3 mL Solution For Nebulization 3 ml inhalation Q4-6H PRN (Reason: Dyspnea) 30 Days Qty: 100 0RF Discontinued buprenorphine-naloxone 8-2 mg tablet, sublingual 2 tab SUBLINGUAL DAILY Other Ambulatory Orders: Home Medical Equipment (Routine) Location: None Selected Ordered By: Andrew Simmons Problem Reconciliation Problems Reviewed?: Yes Patient Discharge Instructions ACTIVITY: Continue current activity DIET: continue same diet Stand Alone Forms: [facility] Work Release Patient Instructions: Influenza, DI for Chronic Obstructive Pulmonary Disease, DI for H1N1 Influenza -- Adult, DI for Sepsis -- Adult Providers Primary Care Provider: Karla Butts Admit Provider: Andrew Simmons Attending Provider: Andrew Simmons
--- NOTE | 2023-04-13 13:09 | CARE MANAGER ---
Patient needed nebulizer and reports that [facility] is who he will get it from. Sent information and let them know he states he will pick it up. JOVANY Pedraza
[2023-04-13] MEDS: FLUTICASONE/UMECLIDIN/VILANTER 200/62.5/25MCG INHALER 1 PUFF IH (14:41)
--- NOTE | 2023-04-18 04:34 | PC.NURSE ---
final blood culture report remains no growth . patient previously admitted to floor with management by pulm/hospital medicine.
--- NOTE | 2023-04-18 11:30 | CARE MANAGER ---
Addendum entered by Autumn Grimm RN 04/18/23 11:39: Fausto called back and states that he is doing ok, but is still short of breath with any movement. He also has continued congestive cough. He has follow up with PCP tomorrow, but I encouraged him to call and see if they could see him today as he is supposed to go back to work tonight. He picked up all his medication and is aware of follow up appointment with pulmonology. JOVANY Pedraza Original Note: Attempted to contact patient x2 related to hospital discharge. Left JANINE castañeda. JOVANY Perdaza
--- NOTE | 2023-04-19 08:22 | PC.NURSE ---
FINAL BLOOD CULTURE RESULTS DISCUSSED WITH DR YEPEZ, PT ADMITTED TO 2ND FLOOR. TREATED WITH ROCEPHIN AND AZITHROMYCIN. DC'D WITH CEFDINIR. NO NEW ORDERS
== END 2023-04-13 15:49 | disposition home or self-care (01) | DRG 193 ==
LOC: ER 22:54 → 2ND 23:53
PROVIDERS: Nurse Practitioner Acute Care; Admitting Provider Internal Medicine Adolescent Medicine; Emergency Provider Student in an Organized Health Care Education/Training Program; PCP Physician Assistant; Visit Provider Internal Medicine Adolescent Medicine
DX: J10.1 Influenza due to other identified influenza virus with other respiratory manifestations (principal); J96.01 Acute respiratory failure with hypoxia; J44.1 Chronic obstructive pulmonary disease with (acute) exacerbation; F17.210 Nicotine dependence, cigarettes, uncomplicated; F17.290 Nicotine dependence, other tobacco product, uncomplicated; Z71.6 Tobacco abuse counseling
CPT/HCPCS: 36415; 71045; 71275; 80048; 80053; 80061; 82803; 83036; 83605; 83735; 83880; 84145; 84484; 85025; 87040; 87491; 87591; 87632; 87635; 93005; 94640; 99291; J0456; J0696; J3475; Q9967

== ENCOUNTER 2023-09-06 17:53 | Emergency (ER) | payer BC, SELFPAY ==
[2023-09-06 18:05] VITALS: BP 165/101; PULSE 93; RESP 19; TEMP 36.9; O2SAT 97; BMI 35.1
--- NOTE | 2023-09-06 18:26 | EXP.UTC ---
Discharge Plan Disposition Patient Disposition: Home, Self-Care Condition: Good Prescriptions Prescriptions: New jvkthgpx-hyikxhyem-HB 3.5-10,000-1 mg/mL-unit/mL-% solution 4 drp Ear-Left Q8H 7 Days Qty: 10 0RF Referrals Follow up/Referrals: Karla Butts PA [Primary Care Provider] - See instructions Activity Restrictions/Add. Instructions Additional Instructions/Restrictions: Take tylenol or ibuprofen for pain or fever. Use the ear drops in your left ear as directed. Follow up with your regular doctor. GO TO THE ER FOR ANY WORSENING SYMPTOMS Clinical Impressions Clinical Impression: Foreign body in left ear, Left acute otitis media Instructions Patient Instructions: How to Instill Ear Drops Discharge ED Provider: Andrew Abraham [facility] General Stated complaint: something in LT ear Mode of Arrival: Ambulatory Source of Information: Patient Limitations: No Limitations Time Seen by Provider: 09/06/23 18:25 Description of Symptoms (Recalled from Triage Doc. by RN): PATIENT REPORTS LEFT EAR PAIN AND FEELS LIKE THERE IS SOMETHING IN IT. HE STATES HE REMOVED AN EAR BUD LAST WEEK AND NOTICED IT WAS MISSING THE TIP. HE STATES REPORTED SYMPTOMS STARTED AROUND SUNDAY OR SUNDAY OF THIS WEEK HEENT Symptoms (Recalled from RN notes): Yes Resp Symptoms (Recalled from RN notes): No Skin Symptoms (Recalled from RN notes): No MS Symptoms (Recalled from RN notes): No Functional Status (Recalled from RN notes): WNL History of Present Illness Provider Complaint: He states that he has had the rubber tip of an ear bud head phone in his left ear for the past 1 week. He states that he is having left ear pain and decreased hearing now. Related Data Previous Rx's Medication Instructions Recorded lirjrmpk-rzbtlsscp-kqusuoena 3.5 4 drp Ear-Left Q8H 7 days #10 mL 09/06/23 mg/mL-10,000 unit/mL-1 % ear solution Allergies Allergy/AdvReac Type Severity Reaction Status Date / Time No Known Allergies Allergy Verified 04/10/23 20:35 Worker's Comp Is this a Worker's Comp case?: No [facility] Disclaimer: The information contained in this section may have been updated after the patient was seen, as this information can be updated by other users. Medical History (Updated 09/06/23 @ 19:03 by Andrew Abraham APRN) COPD (chronic obstructive pulmonary disease) Asthma exacerbation Low back pain Lumbar radiculopathy Migraine Testosterone deficiency Vitamin D deficiency Decreased libido Family History Other Family history of COPD (chronic obstructive pulmonary disease) Family history of asthma Family history of hyperlipidemia Family history of hypertension Social History (Updated 04/11/23 @ 01:12 by Iggy Moses RN) Smoking Status: Current every day smoker tobacco type: cigarettes packs per day: 1 and smokeless tobacco alcohol intake: former substance use type: former substance user, marijuana, crack/cocaine, heroin, amphetamines, opiates, painkillers and methamphetamine current occupational status: unemployed Travel in the last 8 weeks: None ROS Obtained: Yes All systems reviewed & no additional complaints except as documented Constitutional Constitutional: Denies chills and Denies fever(s) Eyes Eyes: Denies eye discharge ENT Ears, Nose, Mouth, and Throat: Reports as per HPI, Denies dizziness, Reports otalgia and Denies sore throat Cardiovascular Cardiovascular: Denies chest pain Respiratory Respiratory: Denies shortness of breath, Denies chest congestion, Denies cough, Denies stridor and Denies wheezing Gastrointestinal Gastrointestingal: Denies nausea or vomiting Musculoskeletal Musculoskeletal: Reports system reviewed and no additional complaints, except as documented and Denies arthralgias Integumentary/Breasts Skin/Breast: Denies rash Neurologic Neurologic: Denies dizziness and Denies paresthesias Allergic/Immunologic Allergic/Immunologic: Denies wheezing Physical Exam General General appearance: alert and in no apparent distress Head Head exam: atraumatic, normocephalic and normal inspection Eye Eye exam: Present normal appearance, PERRL and EOMI ENT ENT exam: Present normal oropharynx, mucous membranes moist and normal external ear exam Expanded ENT Exam TM/Canal exam: Left TM: erythema, foreign body (black rubber ear bud tip), canal discharge and canal tenderness Nose exam: Absent sinus tenderness Nasal speculum exam: Bilateral: normal Mouth exam: Present normal external inspection; Absent drooling Teeth exam: Present normal inspection Throat exam: Present normal inspection Neck Neck exam: Present normal inspection, full ROM and trachea midline; Absent meningismus or lymphadenopathy Chest Chest inspection: Present normal inspection and symmetric chest wall rise; Absent tenderness Respiratory Respiratory exam: Present normal lung sounds bilaterally; Absent respiratory distress Cardiovascular Cardiovascular exam: Present regular rate and normal rhythm; Absent JVD Abdominal Exam Abdominal exam: Present soft and normal bowel sounds; Absent distention, tenderness or guarding Extremities Exam Extremities exam: Present normal inspection, full ROM and normal capillary refill; Absent calf tenderness Back Exam Back exam: Present normal inspection; Absent tenderness Neurological Exam Neurological exam: Present alert and oriented X3 Psychiatric Psychiatric exam: Present normal affect and normal mood Skin Skin exam: Present warm, dry, intact and normal color Lymphatic Lymphatic Findings: no adenopathy Medical Decision Making Medical Records Medical records reviewed: No I reviewed the patient's medical records. Yusef Inquiry Pt receiving controlled substance: No Vital Signs: 09/06/23 18:05 Temperature 98.4 F Temperature Source Oral Pulse Rate [Left Brachial] 93 H Respiratory Rate 19 Blood Pressure [Left Arm] 165/101 H Blood Pressure Mean [Left Arm] 122 Blood Pressure Source [Left Arm] Automatic Cuff Blood Pressure Position [Left Arm] Sitting 02 Sat by Pulse Oximetry 97 Oxygen Delivery Method Room Air Procedures Risk/Benefits of Procedure(s) Were Explained: Yes FB Removal Ear Location: ear canal (L) Foreign Body Suspected: other (black rubber ear bud tip) TM intact pre-procedure: unable to visualize Foreign Body Removed: yes Foreign Body Removal Technique: instrumentation (alligator pliers) Tympanic Membrane Intact Post Procedure: Yes Patient Tolerated Procedure: well and no complications Complications: none Additional Comments: The ear bud tip was removed easily. He tolerated this well. The canal was erythemic and there was drainage in the canal after removal, so antibiotic ear drops were prescribed.
[2023-09-06 19:05] VITALS: BP 165/101; PULSE 93; RESP 19; TEMP 36.9; O2SAT 97
== END 2023-09-06 19:08 | disposition home or self-care (01) ==
PROVIDERS: Emergency Provider Nurse Practitioner Family; PCP Physician Assistant
DX: H66.92 Otitis media, unspecified, left ear (principal); T16.2XXA Foreign body in left ear, initial encounter; F17.210 Nicotine dependence, cigarettes, uncomplicated; W44.8XXA Other foreign body entering into or through a natural orifice, initial encounter
CPT/HCPCS: 10120; 99212; 99214; G0463

== ENCOUNTER 2024-10-31 14:07 | Inpatient (IN) | payer BC, SELFPAY ==
[2024-10-31] VITALS (15 sets, daily range): BP systolic 136–164; BP diastolic 69–95; PULSE 73–104; RESP 16–24; TEMP 36.8–37; O2SAT 91–95; BMI 39.4; BMI 40.1
--- NOTE | 2024-10-31 14:18 | PC.NURSE ---
Dr. Bowling in room to perform bedside US
--- NOTE | 2024-10-31 14:21 | PC.NURSE ---
at bedside at this time.
--- NOTE | 2024-10-31 14:34 | XR_ITS ---
PROCEDURE INFORMATION: Exam: XR Chest Exam date and time: 10/31/2024 3:06 PM Age: 49 years old Clinical indication: Shortness of breath TECHNIQUE: Imaging protocol: Radiologic exam of the chest. Views: 2 views. COMPARISON: CT ANGIO CHEST PE PROTOCOL 04/11/2023 5:23 PM FINDINGS: Lungs: Opacities in both lung bases may represent atelectasis or pneumonia.. Pleural spaces: Unremarkable. No pleural effusion. No pneumothorax. Heart/Mediastinum: Cardiomegaly Bones/joints: Unremarkable. IMPRESSION: Opacities in both lung bases may represent atelectasis or pneumonia.. Recommend short-term follow-up to document complete resolution
--- NOTE | 2024-10-31 14:42 | ECG_ITS ---
APPROVED REPORT Exam: Resting ECG HR:100 bpm ECG Measurements Heart Rate 100 AXES GA 142 P 49 QRSd 106 QRS 38 QT 387 T 54 QTc 444 Conclusion SINUS TACHYCARDIA WITH OCCASIONAL SUPRAVENTRICULAR PREMATURE COMPLEXES POSSIBLE LEFT ATRIAL ENLARGEMENT [-0.1mV P-WAVE IN V1/V2] MODERATE T-WAVE ABNORMALITY, CONSIDER ANTERIOR ISCHEMIA [-0.1+ mV T-WAVE IN V3/V4] ABNORMAL ECG UNCONFIRMED REPORT Sinus tachycardia. T wave inversions in lead V2, V3, V4, V5. No ST elevation or depression Electronically signed by : GILLIAN TAVAREZ, 11/03/2024 14:22:12
[2024-10-31 14:54] LABS: Hematocrit 37.9 % (42.0-52.0); Hemoglobin 11.7 g/dL (14.1-18.0); Immature Granulocytes % 0.3 %; Mean Corpuscular HGB Conc 30.9 g/dL (31.8-35.4); Mean Corpuscular Hemoglobin 27.5 pg (27.0-31.2); Mean Corpuscular Volume 89.0 fl (80-94); Nucleated Red Blood Cells % 0 %; Platelet Count 215 K/mm3 (142-424); Red Blood Count 4.26 M/mm3 (4.60-6.20); Red Cell Distribution Width-SD 54.1 fL; White Blood Count 6.5 K/mm3 (4.8-10.8)
[2024-10-31 14:59] LABS: Alanine Aminotransferase 13 U/L (12-78); Albumin Level 3.4 g/dl (3.5-5.0); Anion Gap 7.7 mEq/L (5-15); Aspartate Amino Transferase 29 U/L (17-59); Bilirubin,Total 2.5 mg/dl (0.2-1.3); Blood Urea Nitrogen 10 mg/dl (9-20); Calcium 8.1 mg/dl (8.4-10.2); Carbon Dioxide 39 mmol/L (22.0-30.0); Chloride 95 mmol/L (98-107); Creatinine Clearance Estimated 156 mL/min (50-200); Creatinine,Serum 1.00 mg/dl (0.66-1.25); Estimated Glomerular Filt Rate 80 ml/min (>60); GFR (African American) 97 ML/MIN (>60); Glucose 139 mg/dl (74-100); Magnesium 1.6 mg/dl (1.6-2.3); Sodium 139 mmol/L (136-145); Total Protein,Serum 7.5 g/dl (6.3-8.2)
[2024-10-31 15:00] LABS: VBG PCO2 57.9 mmol/L (35-51); VBG PH 7.43 mmol/L (7.31-7.41)
[2024-10-31 15:00] LABS: Albumin/Globulin Ratio 0.8 (1.1-1.8); Alkaline Phosphatase 91 U/L (38-126); Globulin 4.1 g/dL (1.3-3.2)
[2024-10-31 15:01] LABS: Lactate Venous 2.4 mmol/L (0.4-2.0); VBG HCO3 37.1 mmol/L (23-30); VBG PO2 88.9 mmol/L (28-40)
[2024-10-31 15:11] LABS: NT Pro Brain Natriuretic Pep. 9300 pg/mL (0-125); Potassium 2.7 mmoL/L (3.5-5.1); Troponin I 0.04 ng/ml (0.00-0.034)
--- NOTE | 2024-10-31 15:13 | PC.NURSE ---
notified of critical potassium of 2.7.
--- NOTE | 2024-10-31 15:17 | HMH.EDGENADL ---
Discharge Plan Disposition Patient Disposition: Admitted Prescriptions Prescriptions: No Action buprenorphine-naloxone 8-2 mg tablet, sublingual 2 tab sublingual DAILY Patient Comments: DISSOLVE 2 TABLETS UNDER THE TONGUE EVERY DAY cefdinir 300 mg capsule 300 mg PO BID 10 Days Qty: 20 0RF azithromycin 250 mg tablet See Rx Instructions PO .COMPLEX Qty: 6 0RF Rx Instructions: For 250 mg dose pack: take 500 mg today (day 1), then 250 mg for 4 days (days 2-5) PO guaifenesin [Mucinex] 1,200 mg tablet extended release 12hr 1,200 mg PO BID PRN (Reason: congestion) Qty: 20 0RF albuterol sulfate 90 mcg/actuation HFA aerosol inhaler 2 puff inhalation Q4-6H PRN (Reason: shortness of breath or wheezing) Qty: 8.5 0RF albuterol sulfate 2.5 mg /3 mL (0.083 %) solution for nebulization 2.5 mg inhalation Q6H Qty: 90 0RF Referrals Follow up/Referrals: Karla Butts PA [Primary Care Provider, Medical] - See instructions Clinical Impressions Clinical Impression: Acute hypokalemia, Volume overload, Elevated brain natriuretic peptide (BNP) level, Shortness of breath Print Language Print Language: Japanese Discharge ED Provider: Chano Bowling Adult HPI <Chano Bowling MD - Last Filed: 10/31/24 16:55> General Chief complaint: Recheck/Abnormal Lab/Rx Stated complaint: swelling in bilateral arms and fluid on heart Time Seen by Provider: 10/31/24 14:17 Mode of Arrival: Ambulatory Source of Information: Patient Description of Symptoms (Recalled from ER Triage Doc. by RN): pt states he was sent by his PCP for fluid on his heart. pt c/o BUE and BLE edema that is 3+. pt states he has been struggling with SOA for a few months. pt was put on home O2 yesterday 2LNC, but arrived on RA. pt was 88% on RA but increased to 94% on his 2LNC. pt reports he was sent for elevated blood work as well. History of Present Illness HPI narrative: Fausto Cho is a 49-year-old male with a past medical history of COPD, obesity who presents to the emergency department for complaints of shortness of breath and fluid on his heart . Patient states that over the last 2 weeks, he has noted swelling to both of his lower extremities as well as indentions in his legs when he wears socks. He also reports increasing shortness of breath with exertion and states that sometimes he can only walk short distances before taking a break because of shortness of breath. He states that he has to sleep with his head elevated back for pillows because he feels short of breath when lying flat. Related Data Home Medications ?Medication ?Instructions ?Recorded ?Confirmed buprenorphine 8 mg-naloxone 2 mg 2 tab sublingual DAILY 06/23/24 06/23/24 sublingual tablet Previous Rx's ?Medication ?Instructions ?Recorded albuterol sulfate 2.5 mg/3 mL 2.5 mg (3 mL) inhalation Q6H #90 mL 06/23/24 (0.083 %) solution for nebulization albuterol sulfate 90 mcg/actuation 2 puff inhalation Q4-6H PRN 06/23/24 aerosol inhaler shortness of breath or wheezing #8.5 grams azithromycin 250 mg tablet See Rx Instructions PO .COMPLEX #6 06/23/24 tabs cefdinir 300 mg capsule 300 mg PO BID 10 days #20 caps 06/23/24 guaifenesin 1,200 mg tablet, 1,200 mg PO BID PRN congestion #20 06/23/24 extended release 12 hr (Mucinex) tabs Allergies Allergy/AdvReac Type Severity Reaction Status Date / Time No Known Allergies Allergy Verified 10/31/24 14:36 [facility] [place] <Chano Bowling MD - Last Filed: 10/31/24 16:55> [facility] [place] Disclaimer: The information contained in this section may have been updated after the patient was seen, as this information can be updated by other users. Medical History (Updated 10/31/24 @ 16:54 by Chano Bowling MD) COPD exacerbation COPD (chronic obstructive pulmonary disease) Asthma exacerbation Low back pain Lumbar radiculopathy Migraine Testosterone deficiency Vitamin D deficiency Decreased libido Family History Other Family history of COPD (chronic obstructive pulmonary disease) Family history of asthma Family history of hyperlipidemia Family history of hypertension Social History Smoking Status: Current every day smoker tobacco type: cigarettes packs per day: 1 and smokeless tobacco alcohol intake: former substance use type: former substance user, marijuana, crack/cocaine, heroin, amphetamines, opiates, painkillers and methamphetamine current occupational status: unemployed Travel in the last 8 weeks?: None Have you lived/traveled outside [place] in past 30 days?: No Contact w/someone who lives/traveled outside US past 30 days?: No Exposure to someone with infectious disease in past 14 days?: No Do you have a fever (greater than 100.4 F or 38 C)?: No Have you tested positive for COVID-19?: No Exposed to someone with COVID-19 in past 14 days?: No Do you have a sore throat?: No Do you have a cough?: No Do you have any weakness?: No Do you have any diarrhea?: No Are you experiencing any unusual bleeding?: No Do you have any muscle aches/pain?: No Do you have any abdominal pain?: No Are you experiencing loss of taste or smell?: No Other Medical History Have you received the Flu Vaccine for this season: No Have you received the Pneumonia Vaccine: No <Chano Bowling MD - Last Filed: 10/31/24 16:55> ROS Obtained: Yes Systems reviewed as appropriate & no additional complaints except as documented Physical Exam <Chano Bowling MD - Last Filed: 10/31/24 16:55> General General appearance: alert, in no apparent distress and obese Head Head exam: atraumatic Eye Eye exam: Present normal appearance ENT ENT exam: Present normal external ear exam Neck Neck exam: Present full ROM Chest Chest inspection: Present symmetric chest wall rise Respiratory Respiratory exam: Present respiratory distress (Mildly increased work of breathing); Absent normal lung sounds bilaterally (Diminished breath sounds bilaterally with mild crackles) Cardiovascular Cardiovascular exam: Present regular rate and normal rhythm Abdominal Exam Abdominal exam: Present soft; Absent tenderness or guarding exam: Present deferred Extremities Exam Extremities exam: Present normal inspection and edema (pitting edema to bilateral lower extremities) Back Exam Back exam: Present normal inspection Neurological Exam Neurological exam: Present alert and oriented X3 Psychiatric Psychiatric exam: Present normal affect Skin Skin exam: Present warm, dry and rash (Mildly raised macular erythematous rash to bilateral upper extremities) Medical Decision Making <Chano Bowling MD - Last Filed: 10/31/24 16:55> Medical Records Screening: Per USPSTF and CDC recommendations, given the prevalence of disease in our region, it is our hospital?s policy to screen for HIV and viral Hepatitis for all patients aged 18 and over and those with ongoing risk factors. Yusef Inquiry Pt receiving controlled substance: No Vital Signs: 10/31/24 14:21 10/31/24 14:54 10/31/24 15:00 Temperature 98.6 F Temperature Source Oral Pulse Rate 98 H 98 H Pulse Rate [Left] 104 H Respiratory Rate 16 17 17 Blood Pressure 164/91 H Blood Pressure [Right Arm] 149/85 H Blood Pressure Mean 115 Blood Pressure Mean [Right Arm] 106 Blood Pressure Source [Right Arm] Automatic Cuff Blood Pressure Position [Right Arm] Sitting 02 Sat by Pulse Oximetry 94 L 92 L 93 L Oxygen Delivery Method Nasal Cannula Nasal Cannula Nasal Cannula Oxygen Flow Rate (LPM) 2 2 10/31/24 15:39 Temperature Temperature Source Pulse Rate 97 H Pulse Rate [Left] Respiratory Rate 17 Blood Pressure 162/94 H Blood Pressure [Right Arm] Blood Pressure Mean 105 Blood Pressure Mean [Right Arm] Blood Pressure Source [Right Arm] Blood Pressure Position [Right Arm] 02 Sat by Pulse Oximetry 95 Oxygen Delivery Method Nasal Cannula Oxygen Flow Rate (LPM) Lab Data Lab Results 10/31/24 14:34: VBG pH 7.43 H, VBG pCO2 57.9 H, VBG pO2 88.9 H, VBG HCO3 37.1 H, VBG Total CO2 38.9 H, VBG O2 Saturation 96.1 H, VBG Base Excess 10.6 H, VBG Lactic Acid 2.4 H 10/31/24 14:39: WBC 6.5, RBC 4.26 L, Hgb 11.7 L, Hct 37.9 L, MCV 89.0, MCH 27.5, MCHC 30.9 L, RDW 16.7, Plt Count 215, MPV 9.3, Neut % (Auto) 79.4, Lymph % (Auto) 11.1, Mcdowell % (Auto) 4.5, Eos % (Auto) 4.2, Baso % (Auto) 0.5, Neut # (Auto) 5.1, Lymph # (Auto) 0.7, Mcdowell # (Auto) 0.3, Eos # (Auto) 0.3, Baso # (Auto) 0.0, Sodium 139, Potassium 2.7 L*, Chloride 95 L, Carbon Dioxide 39 H, Anion Gap 7.7, BUN 10, Creatinine 1.00, Estimated Creat Clear 156, Estimated GFR 80, Est GFR ( Amer) 97, Glucose 139 H, Calcium 8.1 L, Magnesium 1.6, Total Bilirubin 2.5 H, AST 29, ALT 13, Alkaline Phosphatase 91, Troponin I 0.04 H, NT-Pro-B Natriuret Pep 9300 H, Total Protein 7.5, Albumin 3.4 L, Globulin 4.1 H, Albumin/Globulin Ratio 0.8 L, HCV Ab DEREK w/Rflx PCR Qn Reactive, HIV Ag/Ab Combo Qual Negative 10/31/24 14:39 10/31/24 14:39 Orders (Tests/Meds): ED MEDICATIONS Discontinued Medications Generic Name Dose Route Start Last Admin Trade Name Freq PRN Reason Stop Dose Admin Diphenhydramine HCl 25 mg 10/31/24 16:41 Diphenhydramine 50mg/Ml Vial IV 10/31/24 16:42 ONCE ONE Potassium Chloride 80 meq 10/31/24 15:15 10/31/24 15:35 Potassium Chloride 20meq Tab PO 10/31/24 15:16 80 meq ONCE ONE Administration ORDERS Category Date Time Status CXR 2 view (NOT portable) [XR chest 2V] Stat Exams 10/31/24 14:34 Completed POCUS Point of Care (ER Only) Stat Exams 10/31/24 14:19 Completed BNP [NT Pro Brain Natriuretic Pep.] Stat Lab 10/31/24 14:39 Completed CBC w/Auto Diff [Complete Blood Count Auto Diff] Stat Lab 10/31/24 14:39 Completed CMP [Comprehensive Metabolic Panel] Stat Lab 10/31/24 14:39 Completed HCV RNA PCR, Quant Stat Lab 10/31/24 14:39 Received HIV Combo Stat Lab 10/31/24 14:39 Completed Hepatitis C Ab Qual. W/ RFX Stat Lab 10/31/24 14:39 Completed Magnesium Stat Lab 10/31/24 14:39 Completed Troponin I Q3H Lab 10/31/24 17:45 Ordered Troponin I Q3H Lab 10/31/24 20:45 Ordered Troponin I Stat Lab 10/31/24 14:39 Completed VBG [Venous Blood Gas] Stat RT 10/31/24 14:34 Completed Medical Decision Narrative: Fausto Cho is a 49-year-old male with a past medical history of COPD, obesity who presents to the emergency department for complaints of shortness of breath and fluid on his heart . Patient states that over the last 2 weeks, he has noted swelling to both of his lower extremities as well as indentions in his legs when he wears socks. He also reports increasing shortness of breath with exertion and states that sometimes he can only walk short distances before taking a break because of shortness of breath. He states that he has to sleep with his head elevated back for pillows because he feels short of breath when lying flat. On arrival, patient is mildly tachycardic with a heart of 104 bpm. Hypertensive with blood pressure 149/85, oxygen saturation at 94% on 2 L nasal cannula. Physical exam, as stated above, revealed an obese male in mild respiratory distress with some increased work of breathing. He has diminished breath sounds bilaterally with mild crackles. He does have a pruritic rash to bilateral upper extremities, which he states he has been treating with hydrocortisone cream which does not seem to be helping. He does have pitting edema to bilateral lower extremities below the knee extending distally. Differential diagnosis includes, but is not limited to: CHF, ACS, kidney failure, volume overload, cirrhosis, pneumonia, pleural effusion, pulmonary hypertension, among others. The most morbid conditions were considered and workup was based on these. Workup in the emergency department included: [id number] cardiac and lung ultrasound, CBC, CMP, troponin, BNP, EKG, VBG with lactic acid, two-view chest x-ray Port care ultrasound was performed by me personally. Patient's overall ejection fraction seems to be preserved. No pericardial effusion. No wall motion abnormalities. Patient does have a few B-lines present bilaterally. See procedure note for full details. Workup interpreted by me personally. Chest x-ray with some evidence of increased vascular markings bilaterally. There could be some atelectasis at the bases. See final radiology report for details. EKG showed sinus tachycardia, no ST elevation or depression, T wave inversions in V2, V3, V4, V5. QTc is normal at 444. Workup shows no leukocytosis, hemoglobin low compared to baseline at 11.7 and 37.9 (was 14.8 in April 2023), VBG with mildly elevated lactate of 2.4, pH mildly elevated 7.43 and pCO2 mildly elevated 57.9, bicarb is elevated at 37.1. Chemistry shows significantly low potassium at 2.7 (will give 80 mg oral potassium supplementation), sodium normal at 139, bicarb on CMP elevated at 39. No IONA. Bilirubin is mildly elevated 2.5 but liver enzymes otherwise within normal limits. Initial troponin of 0.04. BNP is notably elevated at 9300. Given these findings, discussed the patient's case with Dr. Beltran who recommended getting formal echocardiogram at this time. Attempts were made, however they are no longer performing them at this time given it is after business hours. Is felt the patient will require admission for correction of his potassium and workup for his presumed new onset heart failure. Discussions were had with Dr. Hagen with the hospital medicine service who agreed to admit the patient. <Courtney Godoy MD - Last Filed: 10/31/24 16:47> Vital Signs: 10/31/24 14:21 10/31/24 14:54 10/31/24 15:00 Temperature 98.6 F Temperature Source Oral Pulse Rate 98 H 98 H Pulse Rate [Left] 104 H Respiratory Rate 16 17 17 Blood Pressure 164/91 H Blood Pressure [Right Arm] 149/85 H Blood Pressure Mean 115 Blood Pressure Mean [Right Arm] 106 Blood Pressure Source [Right Arm] Automatic Cuff Blood Pressure Position [Right Arm] Sitting 02 Sat by Pulse Oximetry 94 L 92 L 93 L Oxygen Delivery Method Nasal Cannula Nasal Cannula Nasal Cannula Oxygen Flow Rate (LPM) 2 2 10/31/24 15:39 Temperature Temperature Source Pulse Rate 97 H Pulse Rate [Left] Respiratory Rate 17 Blood Pressure 162/94 H Blood Pressure [Right Arm] Blood Pressure Mean 105 Blood Pressure Mean [Right Arm] Blood Pressure Source [Right Arm] Blood Pressure Position [Right Arm] 02 Sat by Pulse Oximetry 95 Oxygen Delivery Method Nasal Cannula Oxygen Flow Rate (LPM) Lab Data Lab results reviewed: Yes I reviewed the patient's lab results. Lab Results 10/31/24 14:34: VBG pH 7.43 H, VBG pCO2 57.9 H, VBG pO2 88.9 H, VBG HCO3 37.1 H, VBG Total CO2 38.9 H, VBG O2 Saturation 96.1 H, VBG Base Excess 10.6 H, VBG Lactic Acid 2.4 H 10/31/24 14:39: WBC 6.5, RBC 4.26 L, Hgb 11.7 L, Hct 37.9 L, MCV 89.0, MCH 27.5, MCHC 30.9 L, RDW 16.7, Plt Count 215, MPV 9.3, Neut % (Auto) 79.4, Lymph % (Auto) 11.1, Mcdowell % (Auto) 4.5, Eos % (Auto) 4.2, Baso % (Auto) 0.5, Neut # (Auto) 5.1, Lymph # (Auto) 0.7, Mcdowell # (Auto) 0.3, Eos # (Auto) 0.3, Baso # (Auto) 0.0, Sodium 139, Potassium 2.7 L*, Chloride 95 L, Carbon Dioxide 39 H, Anion Gap 7.7, BUN 10, Creatinine 1.00, Estimated Creat Clear 156, Estimated GFR 80, Est GFR ( Amer) 97, Glucose 139 H, Calcium 8.1 L, Magnesium 1.6, Total Bilirubin 2.5 H, AST 29, ALT 13, Alkaline Phosphatase 91, Troponin I 0.04 H, NT-Pro-B Natriuret Pep 9300 H, Total Protein 7.5, Albumin 3.4 L, Globulin 4.1 H, Albumin/Globulin Ratio 0.8 L, HCV Ab DEREK w/Rflx PCR Qn Reactive, HIV Ag/Ab Combo Qual Negative Orders (Tests/Meds): ED MEDICATIONS Discontinued Medications Generic Name Dose Route Start Last Admin Trade Name Freq PRN Reason Stop Dose Admin Diphenhydramine HCl 25 mg 10/31/24 16:41 Diphenhydramine 50mg/Ml Vial IV 10/31/24 16:42 ONCE ONE Potassium Chloride 80 meq 10/31/24 15:15 10/31/24 15:35 Potassium Chloride 20meq Tab PO 10/31/24 15:16 80 meq ONCE ONE Administration ORDERS Category Date Time Status CXR 2 view (NOT portable) [XR chest 2V] Stat Exams 10/31/24 14:34 Completed POCUS Point of Care (ER Only) Stat Exams 10/31/24 14:19 Completed BNP [NT Pro Brain Natriuretic Pep.] Stat Lab 10/31/24 14:39 Completed CBC w/Auto Diff [Complete Blood Count Auto Diff] Stat Lab 10/31/24 14:39 Completed CMP [Comprehensive Metabolic Panel] Stat Lab 10/31/24 14:39 Completed HCV RNA PCR, Quant Stat Lab 10/31/24 14:39 Received HIV Combo Stat Lab 10/31/24 14:39 Completed Hepatitis C Ab Qual. W/ RFX Stat Lab 10/31/24 14:39 Completed Magnesium Stat Lab 10/31/24 14:39 Completed Troponin I Q3H Lab 10/31/24 17:45 Ordered Troponin I Q3H Lab 10/31/24 20:45 Ordered Troponin I Stat Lab 10/31/24 14:39 Completed VBG [Venous Blood Gas] Stat RT 10/31/24 14:34 Completed Procedures <Chano Bowling MD - Last Filed: 10/31/24 16:55> Limited Ultrasound Interpretation:: Limited cardiac ultrasound Indication: Shortness of breath, swelling Identified cardiac views: -Cardiac parasternal long axis -Cardiac parasternal short axis -Cardiac apical four-chamber -Cardiac subxiphoid Findings: -Cardiac activity present -Wall motion grossly normal -Pericardial effusion absent -Right heart strain absent Impression: - From above Images were saved to permanent archive The study was technically adequate CPT: 98846 This study was performed by me, and I personally interpreted all images/videos. Based on my clinical judgement, these images were adequate and did not necessitate further imaging. Limited lung ultrasound A focused ultrasound exam of the pleural spaces was performed to evaluate for pneumothorax, pulmonary edema, pleural effusion and/or consolidation. The ultrasound was performed with the following indications, as noted in the H&P: Dyspnea, hypoxia Identified structures: RIGHT and/or LEFT thoracic cavities were examined. Findings: Lung sliding: - Left present - Right present B-lines: - Left present - Right present Pleural effusion: - Left absent - Right absent Consolidation: - Left absent - Right absent Impression: - Pneumothorax absent - Pleural effusion absent - B-lines present - Consolidation absent Images were saved to permanent archive The study was technically adequate CPT 82604-76 This study was performed by mo, and I personally interpreted all images/videos. Based on my clinical judgement, these images were adequate and did not necessitate further imaging. Critical Care <Chano Bowling MD - Last Filed: 10/31/24 16:55> Critical Care Time Critical Care Time: No
[2024-10-31] MEDS: POTASSIUM CHLORIDE 20MEQ TAB 80 MEQ PO (15:35)
[2024-10-31 16:50] LABS: Hepatitis C Ab Qual. W/ RFX REACTIVE (Negative)
--- NOTE | 2024-10-31 17:27 | PC.NURSE ---
ACCREDITED LEGAL SECRETARY NOTIFIED OF ADMISSION
[2024-10-31 18:06] LABS: Troponin I 0.04 ng/ml (0.00-0.034)
--- NOTE | 2024-10-31 18:20 | PC.NURSE ---
Patient report called to JOVANY Croft.
--- NOTE | 2024-10-31 18:21 | P.HP_ITS ---
History of Present Illness *Admission Date: 10/31/24 *Reason for visit:: SOB *History of present illness: Patient is a 49-year-old male with past medical history of COPD obesity who presents to the hospital due to complaints of shortness of breath as well as bilateral lower extremity edema. He was sent to the hospital by his PCP due to full documentation concern for new onset CHF. Patient mentions he has been having shortness of breath especially while lying down flat, he also has exe rtional dyspnea. Patient otherwise denies fever chills chest pain nausea vomiting diarrhea constipation dysuria fevers and chills [facility] Disclaimer: The information contained in this section may have been updated after the patient was seen, as this information can be updated by other users. Medical History (Updated 10/31/24 @ 18:56 by Quique Hagen MD) COPD exacerbation COPD (chronic obstructive pulmonary disease) Asthma exacerbation Low back pain Lumbar radiculopathy Migraine Testosterone deficiency Vitamin D deficiency Decreased libido Family History Other Family history of COPD (chronic obstructive pulmonary disease) Family history of asthma Family history of hyperlipidemia Family history of hypertension Social History Smoking Status: Current every day smoker tobacco type: cigarettes packs per day: 1 and smokeless tobacco alcohol intake: former substance use type: former substance user, marijuana, crack/cocaine, heroin, amphetamines, opiates, painkillers and methamphetamine current occupational status: unemployed Travel in the last 8 weeks?: None Have you lived/traveled outside [place] in past 30 days?: No Contact w/someone who lives/traveled outside US past 30 days?: No Exposure to someone with infectious disease in past 14 days?: No Do you have a fever (greater than 100.4 F or 38 C)?: No Have you tested positive for COVID-19?: No Exposed to someone with COVID-19 in past 14 days?: No Do you have a sore throat?: No Do you have a cough?: No Do you have any weakness?: No Do you have any diarrhea?: No Are you experiencing any unusual bleeding?: No Do you have any muscle aches/pain?: No Do you have any abdominal pain?: No Are you experiencing loss of taste or smell?: No Other Medical History Have you received the Flu Vaccine for this season: No Have you received the Pneumonia Vaccine: No Review of Systems Review of Systems Review of systems:: pertinent systems reviewed and negative unless documented below Meds Home Medications and Allergies Home Medications ?Medication ?Instructions ?Recorded ?Confirmed ?Type albuterol sulfate 2.5 mg/3 mL 2.5 mg (3 mL) inhalation Q6H #90 mL 06/23/24 11/01/24 Rx (0.083 %) solution for nebulization buprenorphine 8 mg-naloxone 2 mg 2 tab sublingual AGUILAR Y 10/31/24 11/01/24 History sublingual tablet furosemide 40 mg tablet 40 mg PO BIDL 10/31/2411/01 History lisinopril 20 mg tablet 20 mg PO DAILY 10/31/2405/27 History spironolactone 25 mg tablet 25 mg PO DAILY 10/31/24 History triamcinolone acetonide 0.1 % 1 applic topical BID 04/2611/01/24 History topical cream albuterol sulfate 90 mcg/actuation 2 puff inhalation Q 4HP PRN 11/01/24 11/01/24 History aerosol inhaler Shortness Of Breath ergocalciferol (vitamin D2) 1,250 1,250 mcg PO WEEKLY 11/01/24 11/01/24 History mcg (50,000 unit) capsule New Prescriptions to Start Prescriptions: Allergies Allergy/AdvReac Type Severity Reaction Status Date / Time No Known Allergies Allergy Verified 10/31/24 14:36 Exam Data for Last 24 hours Vital signs and Labs for Last 24 Hours: Temp Pulse Resp BP Pulse Ox O2 Del Method O2 Flow Rate 98.6 F 88 17 140/84 93 L Nasal Cannula 2 10/31/24 14:21 10/31/24 17:15 10/31/24 15:39 10/31/24 17:15 10/31/24 17:15 10/31/24 17:15 10/31/24 17:15 Laboratory Results - last 24 hr 10/31/24 14:34: VBG pH 7.43 H, VBG pCO2 57.9 H, VBG pO2 88.9 H, VBG HCO3 37.1 H, VBG Total CO2 38.9 H, VBG O2 Saturation 96.1 H, VBG Base Excess 10.6 H, VBG Lactic Acid 2.4 H 10/31/24 14:39: WBC 6.5, RBC 4.26 L, Hgb 11.7 L, Hct 37.9 L, MCV 89.0, MCH 27.5, MCHC 30.9 L, RDW 16.7, Plt Count 215, MPV 9.3, Neut % (Auto) 79.4, Lymph % (Auto) 11.1, [place] % (Auto) 4.5, Eos % (Auto) 4.2, Baso % (Auto) 0.5, Neut # (Auto) 5.1, Lymph # (Auto) 0.7, [place] # (Auto) 0.3, Eos # (Auto) 0.3, Baso # (Auto) 0.0, Sodium 139, Potassium 2.7 L*, Chloride 95 L, Carbon Dioxide 39 H, Anion Gap 7.7, BUN 10, Creatinine 1.00, Estimated Creat Clear 156, Estimated GFR 80, Est GFR ( Amer) 97, Glucose 139 H, Calcium 8.1 L, Magnesium 1.6, Total Bilirubin 2.5 H, AST 29, ALT 13, Alkaline Phosphatase 91, Troponin I 0.04 H, NT-Pro-B Natriuret Pep 9300 H, Total Protein 7.5, Albumin 3.4 L, Globulin 4.1 H, Albumin/Globulin Ratio 0.8 L, HCV Ab DEREK w/Rflx PCR Qn Reactive, HIV Ag/Ab Combo Qual Negative 10/31/24 17:35: Troponin I 0.04 H I & O for Last 24 hours: Intake & Output 10/28/24 10/29/24 10/30/24 10/31/24 23:59 23:59 23:59 23:59 Weight 121.109 kg Constitutional Constitutional: no acute distress *Routine HEENT Exam Head: Present normocephalic Eye: Present EOMI and PERRL ENT: Present mucous membranes moist *Routine Neck Exam Neck: Present supple; Absent lymphadenopathy *Routine Respiratory Exam Respiratory: Present CTA bilaterally *Routine Cardiovascular Exam Cardiovascular: Present RRR *Routine Abdominal Exam Abdominal: Present soft and normoactive bowel sounds; Absent tenderness *Routine Rectal Exam Rectal:: deferred *Routine Genitalia Exam Genitalia:: deferred *Routine Extremities Exam Extremities: Present edema; Absent cyanosis or clubbing *Routine Skin Exam Skin: Present warm; Absent rash *Routine Neurological Exam Neurological: Present alert and oriented X3 Assessment and Plan *Assessment and plan (1) Shortness of breath: Status: Acute Category: Medical Code(s): R06.02 - Shortness of breath (2) Elevated brain natriuretic peptide (BNP) level: Status: Acute Category: Medical Code(s): R79.89 - Other specified abnormal findings of blood chemistry (3) Volume overload: Status: Acute Category: Medical Code(s): E87.70 - Fluid overload, unspecified (4) Acute CHF: Status: Acute Category: Medical Code(s): I50.9 - Heart failure, unspecified Plan Patient is a 49-year-old male with past medical history of COPD obesity who presents to the hospital due to complaints of shortness of breath as well as bilateral lower extremity edema. He was sent to the hospital by his PCP due to full documentation concern for new onset CHF. Patient mentions he has been having shortness of breath especially while lying down flat, he also has exertional dyspnea. Patient otherwise denies fever chills chest pain nausea vomiting diarrhea constipation dysuria fevers and chills Assessment and plan Exertional dyspnea, bilateral lower extremity edema likely due to new onset CHF Order echocardiogram Monitor on cardiac telemetry 40 IV twice daily Lasix Chest x-ray does show increased vascular congestion proBNP checked and is 9300 Hypokalemia Monitor and replace Electrolyte replacement protocol Chronic medical conditions COPD Resume home inhaler therapy, DuoNebs as needed DVT prophylaxis-subcutaneous heparin
[2024-10-31 19:01] LABS: Reflex Lactic Add Lactic Reflex
[2024-10-31] MEDS: FUROSEMIDE 40MG/4ML VIAL 40 MG IV (20:44)
[2024-10-31] MEDS: HEPARIN SODIUM 5,000 UNIT/ML VIAL 5000 UNIT SUBCUT (20:44)
[2024-10-31 21:54] LABS: Lactic Acid Follow Up (RFLX 1) 1.2 mmol/L (0.7-2.1)
[2024-10-31] MEDS: NICOTINE 21MG/24HR PATCH 21 MG TD (21:57)
[2024-10-31] MEDS: POTASSIUM CHLORIDE 20MEQ TAB 40 MEQ PO (22:00)
[2024-10-31 22:02] LABS: Troponin I 0.04 ng/ml (0.00-0.034)
[2024-11-01] VITALS (10 sets, daily range): BP systolic 132–160; BP diastolic 88–100; PULSE 84–105; RESP 17–18; TEMP 36.6–37.1; O2SAT 91–95; BMI 40.4
--- NOTE | 2024-11-01 05:27 | PC.NURSE ---
This patient was admitted for new onset CHF. Pt. was seen by PCP and sent to the ED for SOB, BLE edema. SOB worse with exertion. Pt. has a new oxygen requirement and has been on 2 liters of O2 per NC at home. Pt. is alert and orientated x 4. Pt on oxygen 2 liters per NC. Pt. has non pittings edema to BUE and BLE. Pt. also has a rash, red, non raised to arms and trunk. . skin warm to touch. , Pt. c/o feeling itchy with the rash. Pt. states that the rash started a week ago and has gotten worse. Pt. resting quietly in bed, sleeping on and off this shift. No needs at this time. Personal items and call hernandez in reach. Bed in low and locked position. safety measures in place.
[2024-11-01 07:12] LABS: Hematocrit 38.6 % (42.0-52.0); Hemoglobin 11.4 g/dL (14.1-18.0); Immature Granulocytes % 0.2 %; Mean Corpuscular HGB Conc 29.5 g/dL (31.8-35.4); Mean Corpuscular Hemoglobin 26.8 pg (27.0-31.2); Mean Corpuscular Volume 90.6 fl (80-94); Nucleated Red Blood Cells % 0 %; Platelet Count 201 K/mm3 (142-424); Red Blood Count 4.26 M/mm3 (4.60-6.20); Red Cell Distribution Width-SD 54.4 fL; White Blood Count 5.7 K/mm3 (4.8-10.8)
[2024-11-01 07:22] LABS: Chloride 94 mmol/L (98-107); Potassium 3.4 mmoL/L (3.5-5.1); Sodium 136 mmol/L (136-145)
[2024-11-01 07:25] LABS: Blood Urea Nitrogen 12 mg/dl (9-20); Calcium 8.0 mg/dl (8.4-10.2); Creatinine Clearance Estimated 80 mL/min (50-200); Creatinine,Serum 1.10 mg/dl (0.66-1.25); Estimated Glomerular Filt Rate 72 ml/min (>60); GFR (African American) 87 ML/MIN (>60); Glucose 113 mg/dl (74-100)
[2024-11-01 08:05] LABS: Anion Gap 8.4 mEq/L (5-15); Carbon Dioxide 37 mmol/L (22.0-30.0)
--- NOTE | 2024-11-01 08:48 | HMH.PHAINT1 ---
Pharmacy Intervention Comments: MEDICATION RECONCILIATION COMPLETE USING EXTERNAL PHARMACY FILL HISTORY, KAYLEE REPORT.
[2024-11-01] MEDS: SPIRONOLACTONE 25MG TABLET 50 MG PO (09:52)
[2024-11-01] MEDS: FUROSEMIDE 40MG/4ML VIAL 40 MG IV ×2 (09:52→15:14)
[2024-11-01] MEDS: POTASSIUM CHLORIDE 20MEQ TAB 40 MEQ PO ×3 (09:52→20:18)
[2024-11-01] MEDS: TRIAMCINOLONE ACETONIDE CREAM 30GM TUBE TP ×2 (09:52→20:18)
[2024-11-01] MEDS: LISINOPRIL 20MG TABLET 20 MG PO (09:52)
[2024-11-01] MEDS: HEPARIN SODIUM 5,000 UNIT/ML VIAL 5000 UNIT SUBCUT ×3 (10:11→20:18)
[2024-11-01] MEDS: IPRATROPIUM/ALBUTEROL 3 ML NEB IH (10:21)
--- NOTE | 2024-11-01 16:02 | EXP.PN ---
Subjective *Date: 11/01/24 *Time: 16:02 Interval history: patient is seen at bedside, he does not have new complains, denied CP, SOB, N/V Exam Data for Last 24 hours Vital signs and Labs for Last 24 Hours: Temp Pulse Resp BP Pulse Ox O2 Del Method O2 Flow Rate 98.3 F 90 18 132/88 95 Nasal Cannula 2 11/01/24 12:00 11/01/24 12:00 11/01/24 12:00 11/01/24 12:00 11/01/24 12:00 11/01/24 15:00 11/01/24 15:00 Laboratory Results - last 24 hr 10/31/24 14:39: HCV Ab DEREK w/Rflx PCR Qn Reactive, HIV Ag/Ab Combo Qual Negative 10/31/24 17:35: Troponin I 0.04 H 10/31/24 21:24: Lactate 1.2, Troponin I 0.04 H 11/01/24 07:00: WBC 5.7, RBC 4.26 L, Hgb 11.4 L, Hct 38.6 L, MCV 90.6, MCH 26.8 L, MCHC 29.5 L, RDW 16.6, Plt Count 201, MPV 9.8, Neut % (Auto) 72.8, Lymph % (Auto) 15.4, [place] % (Auto) 4.9, Eos % (Auto) 6.0, Baso % (Auto) 0.7, Neut # (Auto) 4.2, Lymph # (Auto) 0.9, [place] # (Auto) 0.3, Eos # (Auto) 0.3, Baso # (Auto) 0.0, Sodium 136, Potassium 3.4 L D, Chloride 94 L, Carbon Dioxide 37 H, Anion Gap 8.4, BUN 12, Creatinine 1.10, Estimated Creat Clear 80, Estimated GFR 72, Est GFR ( Amer) 87, Glucose 113 H, Calcium 8.0 L I & O for Last 24 hours: Intake & Output 10/29/24 10/30/24 10/31/24 11/01/24 23:59 23:59 23:59 23:59 Intake Total 930 / 930 Output Total 2500 / 2500 3000 / 3000 Balance -2499 / -2199 -2069 / Weight 123.405 kg 123.921 kg Constitutional Constitutional: no acute distress *Routine HEENT Exam Head: Present normocephalic Eye: Present EOMI and PERRL ENT: Present mucous membranes moist *Routine Neck Exam Neck: Present supple; Absent lymphadenopathy *Routine Respiratory Exam Respiratory: Present CTA bilaterally *Routine Cardiovascular Exam Cardiovascular: Present RRR *Routine Abdominal Exam Abdominal: Present soft and normoactive bowel sounds; Absent tenderness *Routine Extremities Exam Extremities: Present edema; Absent cyanosis or clubbing *Routine Skin Exam Skin: Present warm; Absent rash *Routine Neurological Exam Neurological: Present alert and oriented X3 Assessment and Plan *Assessment and plan (1) Shortness of breath: Status: Acute Category: Medical Code(s): R06.02 - Shortness of breath (2) Elevated brain natriuretic peptide (BNP) level: Status: Acute Category: Medical Code(s): R79.89 - Other specified abnormal findings of blood chemistry (3) Volume overload: Status: Acute Category: Medical Code(s): E87.70 - Fluid overload, unspecified (4) Acute CHF: Status: Acute Category: Medical Code(s): I50.9 - Heart failure, unspecified Plan Patient is a 49-year-old male with past medical history of COPD obesity who presents to the hospital due to complaints of shortness of breath as well as bilateral lower extremity edema. He was sent to the hospital by his PCP due to full documentation concern for new onset CHF. Patient mentions he has been having shortness of breath especially while lying down flat, he also has exertional dyspnea. Patient otherwise denies fever chills chest pain nausea vomiting diarrhea constipation dysuria fevers and chills Assessment and plan Exertional dyspnea, bilateral lower extremity edema likely due to new onset CHF Order echocardiogram Monitor on cardiac telemetry 40 IV twice daily Lasix Chest x-ray does show increased vascular congestion proBNP checked and is 9300 Hypokalemia Monitor and replace Electrolyte replacement protocol Chronic medical conditions COPD Resume home inhaler therapy, DuoNebs as needed DVT prophylaxis-subcutaneous heparin dc planning in 2- 3 days
--- NOTE | 2024-11-01 18:02 | PC.NURSE ---
Pt is A&Ox4. Vital signs stable tolerating 2L NC. Pt states baseline is 2L NC. IV diuretics given per MAR with adequate output. Pt has a rash on bilateral arms. MD notified. Scheduled kenalog cream given per MAR with relief. Potassium replaced with scheduled PO pill. Pt resting comfortably up to the chair with no further needs voiced at this time. Call light within reach
[2024-11-02] VITALS (8 sets, daily range): BP systolic 144–164; BP diastolic 86–101; PULSE 70–100; RESP 17–20; TEMP 36.5–36.9; O2SAT 91–96; BMI 39.4
[2024-11-02] MEDS: ALBUTEROL-HFA 90MCG/PUFF INHALER 8GM 2 PUFF IH ×3 (01:42→15:43)
--- NOTE | 2024-11-02 04:25 | PC.NURSE ---
Pt A&Ox4. Pt is on 2L/NC. Pt complained of SOB, and was given an Albuterol inhaler per MD order. Pt reported a lot of relief. Pt has had some hypertension. Pt has had no other acute changes noted. Pt not voicing any concerns, and resting w/call light in reach. POC ongoing.
[2024-11-02 06:51] LABS: Hematocrit 38.2 % (42.0-52.0); Hemoglobin 11.4 g/dL (14.1-18.0); Immature Granulocytes % 0.3 %; Mean Corpuscular HGB Conc 29.8 g/dL (31.8-35.4); Mean Corpuscular Hemoglobin 26.9 pg (27.0-31.2); Mean Corpuscular Volume 90.1 fl (80-94); Nucleated Red Blood Cells % 0 %; Platelet Count 216 K/mm3 (142-424); Red Blood Count 4.24 M/mm3 (4.60-6.20); Red Cell Distribution Width-SD 53.4 fL; White Blood Count 6.1 K/mm3 (4.8-10.8)
[2024-11-02 07:10] LABS: Chloride 94 mmol/L (98-107); Potassium 3.8 mmoL/L (3.5-5.1); Sodium 133 mmol/L (136-145)
[2024-11-02 07:13] LABS: Anion Gap 3.8 mEq/L (5-15); Blood Urea Nitrogen 14 mg/dl (9-20); Carbon Dioxide 39 mmol/L (22.0-30.0); Creatinine Clearance Estimated 195 mL/min (50-200); Creatinine,Serum 0.80 mg/dl (0.66-1.25); Estimated Glomerular Filt Rate 104 ml/min (>60); GFR (African American) 125 ML/MIN (>60)
[2024-11-02 07:14] LABS: Calcium 8.2 mg/dl (8.4-10.2); Glucose 101 mg/dl (74-100)
[2024-11-02] MEDS: TRIAMCINOLONE ACETONIDE CREAM 30GM TUBE TP ×2 (08:19→20:09)
[2024-11-02] MEDS: HEPARIN SODIUM 5,000 UNIT/ML VIAL 5000 UNIT SUBCUT ×3 (08:20→20:09)
[2024-11-02] MEDS: SPIRONOLACTONE 25MG TABLET 50 MG PO (08:20)
[2024-11-02] MEDS: FUROSEMIDE 40MG/4ML VIAL 40 MG IV ×2 (08:20→15:43)
[2024-11-02] MEDS: LISINOPRIL 20MG TABLET 20 MG PO (08:20)
[2024-11-02] MEDS: POTASSIUM CHLORIDE 20MEQ TAB 40 MEQ PO ×2 (08:20→12:58)
[2024-11-02] MEDS: ACETAMINOPHEN 325MG TAB 650 MG PO (09:35)
--- NOTE | 2024-11-02 16:44 | EXP.PN ---
Subjective *Date: 11/02/24 *Time: 16:44 Interval history: patient is seen at bedside, he does not have new complains, denied CP, SOB, N/V Exam Data for Last 24 hours Vital signs and Labs for Last 24 Hours: Temp Pulse Resp BP Pulse Ox O2 Del Method O2 Flow Rate 98.1 F 92 H 18 148/99 H 96 Nasal Cannula 2 11/02/24 16:00 11/02/24 16:00 11/02/24 16:00 11/02/24 16:00 11/02/24 16:00 11/02/24 16:00 11/02/24 16:00 FiO2 28 11/01/24 18:26 Laboratory Results - last 24 hr 11/02/24 06:30: WBC 6.1, RBC 4.24 L, Hgb 11.4 L, Hct 38.2 L, MCV 90.1, MCH 26.9 L, MCHC 29.8 L, RDW 16.4, Plt Count 216, MPV 10.1, Neut % (Auto) 73.8, Lymph % (Auto) 14.3, [place] % (Auto) 4.4, Eos % (Auto) 6.4, Baso % (Auto) 0.8, Neut # (Auto) 4.5, Lymph # (Auto) 0.9, [place] # (Auto) 0.3, Eos # (Auto) 0.4, Baso # (Auto) 0.1, Sodium 133 L, Potassium 3.8, Chloride 94 L, Carbon Dioxide 39 H, Anion Gap 3.8 L, BUN 14, Creatinine 0.80 D, Estimated Creat Clear 195, Estimated GFR 104, Est GFR ( Amer) 125 D, Glucose 101 H, Calcium 8.2 L I & O for Last 24 hours: Intake & Output 10/30/24 10/31/24 11/01/24 11/02/24 23:59 23:59 23:59 23:59 Intake Total 1170 / 1410 1200 / 1200 Output Total 2500 / 2500 4500 / 4500 2200 / 2200 Balance -2500 / -2200 -3330 / -3090 -1000 / -1000 Weight 123.405 kg 123.921 kg 120.701 kg Constitutional Constitutional: no acute distress *Routine HEENT Exam Head: Present normocephalic Eye: Present EOMI and PERRL ENT: Present mucous membranes moist *Routine Neck Exam Neck: Present supple; Absent lymphadenopathy *Routine Respiratory Exam Respiratory: Present CTA bilaterally *Routine Cardiovascular Exam Cardiovascular: Present RRR *Routine Abdominal Exam Abdominal: Present soft and normoactive bowel sounds; Absent tenderness *Routine Extremities Exam Extremities: Present edema; Absent cyanosis or clubbing *Routine Skin Exam Skin: Present warm; Absent rash *Routine Neurological Exam Neurological: Present alert and oriented X3 Assessment and Plan *Assessment and plan (1) Shortness of breath: Status: Acute Category: Medical Code(s): R06.02 - Shortness of breath (2) Elevated brain natriuretic peptide (BNP) level: Status: Acute Category: Medical Code(s): R79.89 - Other specified abnormal findings of blood chemistry (3) Volume overload: Status: Acute Category: Medical Code(s): E87.70 - Fluid overload, unspecified (4) Acute CHF: Status: Acute Category: Medical Code(s): I50.9 - Heart failure, unspecified Plan Patient is a 49-year-old male with past medical history of COPD obesity who presents to the hospital due to complaints of shortness of breath as well as bilateral lower extremity edema. He was sent to the hospital by his PCP due to full documentation concern for new onset CHF. Patient mentions he has been having shortness of breath especially while lying down flat, he also has exertional dyspnea. Patient otherwise denies fever chills chest pain nausea vomiting diarrhea constipation dysuria fevers and chills Assessment and plan Exertional dyspnea, bilateral lower extremity edema likely due to new onset CHF Order echocardiogram Monitor on cardiac telemetry 40 IV twice daily Lasix Chest x-ray does show increased vascular congestion proBNP checked and is 9300 Hypokalemia Monitor and replace Electrolyte replacement protocol Chronic medical conditions COPD Resume home inhaler therapy, DuoNebs as needed DVT prophylaxis-subcutaneous heparin dc planning in 2- 3 days
--- NOTE | 2024-11-02 16:47 | PC.NURSE ---
Pt is A&Ox4. Vital signs stable tolerating 2L NC. Pt states his baseline is 2L NC. IV lasix given per MAR with adequate urinary output. Pt has reddenned rash on bilateral arms. Scheduled kenalog cream given for itching. ECHO ordered. Pt resting comfortably with no further needs voiced at this time. Call light within reach.
[2024-11-02] MEDS: NICOTINE 21MG/24HR PATCH 21 MG TD (20:09)
[2024-11-03] VITALS (16 sets, daily range): BP systolic 144–175; BP diastolic 76–115; PULSE 78–100; RESP 16–20; TEMP 36.3–36.9; O2SAT 90–97; BMI 39.1
--- NOTE | 2024-11-03 04:10 | PC.NURSE ---
Pt A&Ox4. Pt on 2LNC. Pt was added on humidified oxygen, due to reporting his nose was drying out. Pt has not c/o any shortness of breath. Pt has been hypertensive. Pt has had no acute changes noted. Pt not voicing any further concerns. Pt up to chair, w/ call light in reach. POC ongoing.
[2024-11-03 06:30] LABS: Hematocrit 37.9 % (42.0-52.0); Hemoglobin 11.6 g/dL (14.1-18.0); Immature Granulocytes % 0.2 %; Mean Corpuscular HGB Conc 30.6 g/dL (31.8-35.4); Mean Corpuscular Hemoglobin 27.2 pg (27.0-31.2); Mean Corpuscular Volume 89.0 fl (80-94); Nucleated Red Blood Cells % 0 %; Platelet Count 249 K/mm3 (142-424); Red Blood Count 4.26 M/mm3 (4.60-6.20); Red Cell Distribution Width-SD 53.4 fL; White Blood Count 4.9 K/mm3 (4.8-10.8)
[2024-11-03 06:51] LABS: Chloride 94 mmol/L (98-107); Potassium 4.0 mmoL/L (3.5-5.1); Sodium 135 mmol/L (136-145)
[2024-11-03 06:54] LABS: Anion Gap 6.0 mEq/L (5-15); Blood Urea Nitrogen 16 mg/dl (9-20); Calcium 8.8 mg/dl (8.4-10.2); Carbon Dioxide 39 mmol/L (22.0-30.0); Creatinine Clearance Estimated 172 mL/min (50-200); Creatinine,Serum 0.90 mg/dl (0.66-1.25); Estimated Glomerular Filt Rate 90 ml/min (>60); GFR (African American) 109 ML/MIN (>60); Glucose 111 mg/dl (74-100)
[2024-11-03] MEDS: HEPARIN SODIUM 5,000 UNIT/ML VIAL 5000 UNIT SUBCUT (08:39)
[2024-11-03] MEDS: FUROSEMIDE 40MG/4ML VIAL 40 MG IV (08:39)
[2024-11-03] MEDS: LISINOPRIL 20MG TABLET 20 MG PO (08:40)
[2024-11-03] MEDS: TRIAMCINOLONE ACETONIDE CREAM 30GM TUBE TP (08:40)
[2024-11-03] MEDS: SPIRONOLACTONE 25MG TABLET 50 MG PO (08:40)
--- NOTE | 2024-11-03 08:52 | XR_ITS ---
FINAL REPORT CLINICAL HISTORY: CHF, COPD COMPARISON: 04/20/2023 FINDINGS: CHEST 1 VIEW There is mild cardiomegaly. The mediastinum is normal. There are mild chronic changes in both lungs. There is no focal infiltrate or edema. There are no pleural effusions. There is no pneumothorax. There is no osseous abnormality. There is a small hiatal hernia. IMPRESSION: Mild cardiomegaly without acute cardiopulmonary process Reviewed, Interpreted and Dictated by Arturo Balderas MD Transcribed by Amaya Barber Authenticated and [facility]
[2024-11-03] MEDS: DEFINITY US ECHO CONTRAST 2ML INJ 2 MG IV (09:12)
[2024-11-03 09:32] LABS: NT Pro Brain Natriuretic Pep. 8470 pg/mL (0-125)
--- NOTE | 2024-11-03 10:51 | IR_ITS ---
APPROVED REPORT Patient Location: Inpatient [facility] Hand: Fausto Hendrix, RT (R) PROCEDURES Left heart catheterization Left ventriculogram Selective coronary angiogram INDICATION Acute coronary syndrome Informed consent was obtained prior to the procedure. COMPLICATIONS None Estimated Blood Loss: Less than 10 mls TECHNIQUE One percent lidocaine used to anesthetize the right anterior aspect of the wrist. The right radial artery was accessed via the Seldinger technique. A 6 [place] sheath was placed in the right radial artery. 2.5 mg of Verapamil, 800 mcg of nitroglycerin, 1mg Lidocaine and 5000 U Heparin were given through the arterial sheath. The JL3 catheter was also used to perform left heart catheterization, left ventriculogram and selective coronary angiogram. At the end of the procedure the sheath was removed good hemostasis was achieved using Traclet band, patient was transferred to the postop holding area in stable condition. ANGIOGRAPHIC RESULTS The left main artery Normal The left anterior descending artery Mild proximal mid vessel 10% luminal regularities The circumflex artery Large dominant with diffuse 10% luminal regularities The right coronary artery Nondominant proximal 10% luminal regularities The [place] ventriculogram reveals Preserved 55% The left ventricular end-diastolic pressure 30 mmHg IMPRESSION Mild nonflow limiting coronary disease Preserved ejection fraction Severely elevated LVEDP PLAN 1. Medical management for coronary artery disease and diastolic dysfunction Electronically signed by : Claudio Beltran MD 11/03/2024 14:16:01
[2024-11-03] MEDS: HEPARIN 1,000 UNITS/500ML NS (CATH LAB) 3000 UNIT IV (13:23)
[2024-11-03] MEDS: 0.9 % SODIUM CHLORIDE 500 ML 25 ML IV (13:23)
[2024-11-03] MEDS: HEPARIN 1,000 UNITS/ML 10ML VIAL (CATH LAB) 5000 UNIT IV (13:23)
[2024-11-03] MEDS: NITROGLYCERIN 800MCG/8ML SYR (CATH LAB) 800 MCG IA (13:23)
[2024-11-03] MEDS: LIDOCAINE 1% 10ML MDV 10 ML IJ (13:23)
[2024-11-03] MEDS: VERAPAMIL 2.5MG/ML 2ML VIAL 2.5 MG IV (13:23)
--- NOTE | 2024-11-03 13:34 | EXP.CARD.CON ---
History of Present Illness History of Present Illness Consult date: 11/03/24 Consult reason: congestive heart failure Chief complaint: soa History of present illness: 49-year-old white male without known cardiovascular disease but positive family history with a father who had heart failure in his 50s. Patient has history of substance abuse but sober for 5 years with [facility]. He has ongoing tobacco use. Patient presented to the emergency room on October 31 with complaints of worsening dyspnea, orthopnea, lower extremity edema. Workup indicated potassium 2.7, serial troponins were flat at 0.04, proBNP 9300, chest x-ray opacities in both lungs with atelectasis versus pneumonia and cardiomegaly. 2D echo shows EF 40% with inferior and inferolateral LV wall is moderately hypokinetic. He was admitted over the weekend and has diuresed 8 L. EKG shows sinus rhythm with Q waves in inferior leads. Creatinine normal. He is currently feeling much better and states he would like to be discharged home today but is agreeable to left heart cath if needed. [facility] Disclaimer: The information contained in this section may have been updated after the patient was seen, as this information can be updated by other users. Medical History COPD exacerbation COPD (chronic obstructive pulmonary disease) Asthma exacerbation Low back pain Lumbar radiculopathy Migraine Testosterone deficiency Vitamin D deficiency Decreased libido Family History Other Family history of COPD (chronic obstructive pulmonary disease) Family history of asthma Family history of hyperlipidemia Family history of hypertension Social History Smoking Status: Current every day smoker tobacco type: cigarettes packs per day: 1 and smokeless tobacco alcohol intake: former substance use type: former substance user, marijuana, crack/cocaine, heroin, amphetamines, opiates, painkillers and methamphetamine current occupational status: unemployed Travel in the last 8 weeks?: None Have you lived/traveled outside US in past 30 days?: No Contact w/someone who lives/traveled outside US past 30 days?: No Exposure to someone with infectious disease in past 14 days?: No Do you have a fever (greater than 100.4 F or 38 C)?: No Have you tested positive for COVID-19?: No Exposed to someone with COVID-19 in past 14 days?: No Do you have a sore throat?: No Do you have a cough?: No Do you have any weakness?: No Do you have any diarrhea?: No Are you experiencing any unusual bleeding?: No Do you have any muscle aches/pain?: No Do you have any abdominal pain?: No Are you experiencing loss of taste or smell?: No Review of Systems Constitutional Constitutional: Denies fatigue and Reports weakness Eyes Eyes: Denies loss of vision ENT Ears, Nose, Mouth, and Throat: Denies hearing loss and Denies vertigo *Cardiovascular Cardiovascular: Denies chest pain, Reports dyspnea and Denies syncope *Respiratory Respiratory: Denies cough and Reports dyspnea Comments: edema *Gastrointestinal Gastrointestinal: Denies change in stool character, Denies nausea and Denies vomiting *Genitourinary Genitourinary: Denies difficulty urinating *Musculoskeletal Musculoskeletal: Denies muscle weakness Integumentary/Breasts Skin/Breast: Denies changing lesions *Neurologic Neurologic: Denies loss of vision, Denies syncope, Denies vertigo and Reports weakness Endocrine Endocrine: Denies fatigue Exam Data for Last 24 hours Vital signs and Labs for Last 24 Hours: Temp Pulse Resp BP Pulse Ox O2 Del Method O2 Flow Rate 97.6 F 86 20 169/96 H 90 L Room Air 2 11/03/24 12:00 11/03/24 12:00 11/03/24 12:00 11/03/24 12:00 11/03/24 12:00 11/03/24 12:00 11/03/24 07:43 FiO2 28 11/02/24 19:04 Laboratory Results - last 24 hr 11/03/24 05:56: WBC 4.9, RBC 4.26 L, Hgb 11.6 L, Hct 37.9 L, MCV 89.0, MCH 27.2, MCHC 30.6 L, RDW 16.5, Plt Count 249, MPV 9.9, Neut % (Auto) 72.1, Lymph % (Auto) 16.4, [place] % (Auto) 4.3, Eos % (Auto) 6.6, Baso % (Auto) 0.4, Neut # (Auto) 3.5, Lymph # (Auto) 0.8, [place] # (Auto) 0.2, Eos # (Auto) 0.3, Baso # (Auto) 0.0, Sodium 135 L, Potassium 4.0, Chloride 94 L, Carbon Dioxide 39 H, Anion Gap 6.0, BUN 16, Creatinine 0.90, Estimated Creat Clear 172, Estimated GFR 90, Est GFR ( Amer) 109, Glucose 111 H, Calcium 8.8, NT-Pro-B Natriuret Pep 8470 H I & O for Last 24 hours: Intake & Output 10/31/24 11/01/24 11/02/24 11/03/24 23:59 23:59 23:59 23:59 Intake Total 1170 / 1410 1560 / 1800 360 / 360 Output Total 2500 / 2500 4500 / 4500 3600 / 3600 1350 / 1350 Balance -2500 / -2200 -3330 / -3090 -2040 / -1800 -990 / -990 Weight 272 lb 1 oz 273 lb 3.2 oz 266 lb 1.6 oz 264 lb 1.6 oz Meds Home Medications and Allergies Home Medications ?Medication ?Instructions ?Recorded ?Confirmed ?Type albuterol sulfate 2.5 mg/3 mL 2.5 mg (3 mL) inhalation Q6H #90 mL 06/23/24 11/01/24 Rx (0.083 %) solution for nebulization buprenorphine 8 mg-naloxone 2 mg 2 tab sublingual DAILY 10/31/24 11/01/24 History sublingual tablet furosemide 40 mg tablet 40 mg PO BIDL 10/31/24 11/01/24 History triamcinolone acetonide 0.1 % 1 applic topical BID 10/31/24 11/01/24 History topical cream albuterol sulfate 90 mcg/actuation 2 puff inhalation Q4HP PRN 11/01/24 11/01/24 History aerosol inhaler Shortness Of Breath ergocalciferol (vitamin D2) 1,250 1,250 mcg PO WEEKLY 11/01/24 11/01/24 History mcg (50,000 unit) capsule dapagliflozin propanediol 10 mg 10 mg PO DAILY 30 days #30 tabs 11/03/24 Rx tablet (Farxiga) spironolactone 50 mg tablet 50 mg PO DAILY #30 tabs 11/03/24 Rx New Prescriptions to Start Prescriptions: dapagliflozin propanediol [Farxiga] Andrew Simmons spironolactone Andrew Simmons Allergies Allergy/AdvReac Type Severity Reaction Status Date / Time No Known Allergies Allergy Verified 10/31/24 14:36 Assessment and Plan *Assessment and plan (1) Acute HFrEF (heart failure with reduced ejection fraction): Status: Acute Category: Medical Code(s): I50.21 - Acute systolic (congestive) heart failure (2) NSTEMI (non-ST elevated myocardial infarction): Status: Acute Category: Medical Code(s): I21.4 - Non-ST elevation (NSTEMI) myocardial infarction Plan Acute Left Systolic Heart Failure - new dx this admission with EF 40%, ProBNP 9k - has diuresed 8L and feeling much better - minimal dz on [facility] today - continue home dose spironolactone. Will change lisinopril to ARB for now, transition to Entresto as outpatient. Add Farxiga. Continue Lasix. - consider OP MRI to further evaluate etiology CAD - mild and non flow-limiting per [facility] - home with ASA, Statin, BB Severely Elevated EDP - home with increased dose of Aldactone and diuretics. CV stable for DC home with med changes as outlined above. Pt needs to keep BID BP log and f/u in our office 1-2 weeks.
[2024-11-03] MEDS: FENTANYL 100MCG/2ML VIAL 50 MCG IV (14:06)
[2024-11-03] MEDS: MIDAZOLAM HCL 1MG/ML 5ML VIAL 1 MG IV (14:06)
[2024-11-03] MEDS: IOPAMIDOL-370 (76%);100ML BOTTLE 50 ML IV (15:25)
--- NOTE | 2024-11-03 16:16 | EXP.DC.SUM ---
General Admission date:: 10/31/24 Discharge date: 11/03/24 HPI HPI HPI: Patient is a 49-year-old male with past medical history of COPD obesity who presents to the hospital due to complaints of shortness of breath as well as bilateral lower extremity edema. He was sent to the hospital by his PCP due to full documentation concern for new onset CHF. Patient mentions he has been having shortness of breath especially while lying down flat, he also has exertional dyspnea. Patient otherwise denies fever chills chest pain nausea vomiting diarrhea constipation dysuria fevers and chills Hospital Course Hospital Course Hospital Course: 49-year-old male with history of COPD presented with complaint of shortness of breath and extremity edema. Found to have new diagnosis of HFrEF. BNP elevated at 9000. Initiated on aggressive diuresis and guideline directed medications. Responded really well to diuresis. Negative more than 8 L since admission. Stable on room air. Cardiology evaluated. Stable to discharge home with close follow-up for further management as an outpatient. Problems addressed as follows: Acute Left Systolic Heart Failure Coronary artery disease - new dx this admission. Presented with shortness of breath or lower extremity edema. Echo obtained showing EF 40%. BNP elevated at 9000 on admission. Responded well to aggressive diuresis. Taken for left heart cath on 11/03 with minimal disease. No stents placed. Initiated on guideline directed medications. Will continue spironolactone increased to 50 mg daily. Continue Lasix increased to 60 mg twice daily. Transition to valsartan 160 mg daily and discontinue lisinopril. Initiate carvedilol 6.25 mg twice daily. Initiate Farxiga 10 mg daily. Would benefit from transitioning to Entresto as an outpatient. Follow-up with cardiology for further management. Cardiology also recommends outpatient MRI to further evaluate etiology of diagnosis of heart failure in light of minimal CAD. Total time spent on discharge 32 minutes in counseling, documentation, chart review, and direct care with patient. Exam Data for Last 24 hours Vital signs and Labs for Last 24 Hours: Temp Pulse Resp BP Pulse Ox O2 Del Method O2 Flow Rate 97.6 F 85 20 167/102 H 96 Room Air 2 11/03/24 12:00 11/03/24 14:40 11/03/24 14:40 11/03/24 14:40 11/03/24 14:40 11/03/24 12:00 11/03/24 07:43 FiO2 28 11/02/24 19:04 Laboratory Results - last 24 hr 11/03/24 05:56: WBC 4.9, RBC 4.26 L, Hgb 11.6 L, Hct 37.9 L, MCV 89.0, MCH 27.2, MCHC 30.6 L, RDW 16.5, Plt Count 249, MPV 9.9, Neut % (Auto) 72.1, Lymph % (Auto) 16.4, [place] % (Auto) 4.3, Eos % (Auto) 6.6, Baso % (Auto) 0.4, Neut # (Auto) 3.5, Lymph # (Auto) 0.8, [place] # (Auto) 0.2, Eos # (Auto) 0.3, Baso # (Auto) 0.0, Sodium 135 L, Potassium 4.0, Chloride 94 L, Carbon Dioxide 39 H, Anion Gap 6.0, BUN 16, Creatinine 0.90, Estimated Creat Clear 172, Estimated GFR 90, Est GFR ( Amer) 109, Glucose 111 H, Calcium 8.8, NT-Pro-B Natriuret Pep 8470 H I & O for Last 24 hours: Intake & Output 10/31/24 11/01/24 11/02/24 11/03/24 23:59 23:59 23:59 23:59 Intake Total 1170 / 1410 1560 / 1800 360 / 360 Output Total 2500 / 2500 4500 / 4500 3600 / 3600 2250 / 2250 Balance -2500 / -2200 -3330 / -3090 -2040 / -1800 -1890 / -1890 Weight 123.405 kg 123.921 kg 120.701 kg 119.794 kg Constitutional Constitutional: no acute distress, obese, chronically ill appearing and cooperative *Routine HEENT Exam Head: Present normocephalic Eye: Present EOMI and PERRL ENT: Present mucous membranes moist *Routine Neck Exam Neck: Present supple; Absent lymphadenopathy *Routine Respiratory Exam Respiratory: Present CTA bilaterally; Absent rhonchi, wheezes or crackles *Routine Cardiovascular Exam Cardiovascular: Present RRR *Routine Abdominal Exam Abdominal: Present soft and normoactive bowel sounds; Absent tenderness *Routine Rectal Exam Patient deferred: visual exam *Routine Exam Patient deferred: penile exam *Routine Extremities Exam Extremities: Present edema (1+ to knees); Absent cyanosis or clubbing *Routine Skin Exam Skin: Present intact and warm; Absent rash *Routine Neurological Exam Neurological: Present alert, oriented X3 and moving all extremities; Absent altered mental status Results Data Completed and Pending Labs on day of discharge: Labs from last 24 hours 11/03/24 05:56 WBC 4.9 RBC 4.26 L Hgb 11.6 L Hct 37.9 L MCV 89.0 MCH 27.2 MCHC 30.6 L RDW 16.5 Plt Count 249 MPV 9.9 Neut % (Auto) 72.1 Lymph % (Auto) 16.4 [place] % (Auto) 4.3 Eos % (Auto) 6.6 Baso % (Auto) 0.4 Neut # (Auto) 3.5 Lymph # (Auto) 0.8 [place] # (Auto) 0.2 Eos # (Auto) 0.3 Baso # (Auto) 0.0 Sodium 135 L Potassium 4.0 Chloride 94 L Carbon Dioxide 39 H Anion Gap 6.0 BUN 16 Creatinine 0.90 Estimated Creat Clear 172 Estimated GFR 90 Est GFR ( Amer) 109 Glucose 111 H Calcium 8.8 NT-Pro-B Natriuret Pep 8470 H DS: Diagnosis Discharge Diagnosis (1) Acute HFrEF (heart failure with reduced ejection fraction): Status: Acute Code(s): I50.21 - Acute systolic (congestive) heart failure (2) NSTEMI (non-ST elevated myocardial infarction): Status: Acute Code(s): I21.4 - Non-ST elevation (NSTEMI) myocardial infarction (3) Volume overload: Status: Acute Code(s): E87.70 - Fluid overload, unspecified (4) Hypertension: Status: Chronic Code(s): I10 - Essential (primary) hypertension (5) Class II obesity: Status: Chronic Code(s): E66.812 - Obesity, class 2 Meds Home Medications and Allergies Home Medications ?Medication ?Instructions ?Recorded ?Confirmed ?Type albuterol sulfate 2.5 mg/3 mL 2.5 mg (3 mL) inhalation Q6H #90 mL 06/23/24 11/01/24 Rx (0.083 %) solution for nebulization buprenorphine 8 mg-naloxone 2 mg 2 tab sublingual DAILY 10/31/24 11/01/24 History sublingual tablet triamcinolone acetonide 0.1 % 1 applic topical BID 10/31/24 11/01/24 History topical cream albuterol sulfate 90 mcg/actuation 2 puff inhalation Q4HP PRN 11/01/24 11/01/24 History aerosol inhaler Shortness Of Breath ergocalciferol (vitamin D2) 1,250 1,250 mcg PO WEEKLY 11/01/24 11/01/24 History mcg (50,000 unit) capsule carvedilol 6.25 mg tablet (Coreg) 6.25 mg PO BID #60 tabs 11/03/24 Rx dapagliflozin propanediol 10 mg 10 mg PO DAILY 30 days #30 tabs 11/03/24 Rx tablet (Farxiga) furosemide 40 mg tablet 60 mg (1.5 x 40 mg) PO BIDL 30 11/03/24 Rx days #90 tabs spironolactone 50 mg tablet 50 mg PO DAILY #30 tabs 11/03/24 Rx valsartan 160 mg tablet 160 mg PO DAILY #30 tabs 11/03/24 Rx New Prescriptions to Start Prescriptions: carvedilol [Coreg] Andrew Simmons dapagliflozin propanediol [Farxiga] Andrew Simmons furosemide Andrew Simmons spironolactone Andrew Simmons valsaan Andrew Simmons Allergies Allergy/AdvReac Type Severity Reaction Status Date / Time No Known Allergies Allergy Verified 10/31/24 14:36 Discharge Plan Disposition Patient Disposition: Home, Self-Care Condition: Fair Discharge Order Discharge Orders: Discharge Order (Routine); Ordered 11/03/24 Ordered By: Andrew Simmons Follow up Plan Follow up with: Woody Maharaj PA [Physician Stereo Equipment Installer, Cardiology] - Enter time for follow up Referral Note: office will call with follow up appointment Karla Butts PA [Primary Care Provider, Medical] - 11/10/24 1:00 pm Prescriptions/Medication Reconciliation: New dapagliflozin propanediol [Farxiga] 10 mg Tablet 10 mg PO DAILY 30 Days Qty: 30 0RF spironolactone 50 mg tablet 50 mg PO DAILY Qty: 30 0RF valsartan 160 mg tablet 160 mg PO DAILY Qty: 30 0RF carvedilol [Coreg] 6.25 mg tablet 6.25 mg PO BID Qty: 60 0RF Rx Instructions: must administer with a meal/food Continued albuterol sulfate 2.5 mg /3 mL (0.083 %) solution for nebulization 2.5 mg inhalation Q6H Qty: 90 0RF triamcinolone acetonide 0.1 % cream 1 applic TOPICAL BID Patient Comments: APPLY TOPICALLY TO THE AFFECTED AREA(S) TWICE DAILY buprenorphine-naloxone 8-2 mg tablet, sublingual 2 tab SUBLINGUAL DAILY Patient Comments: DISSOLVE 2 TABLETS UNDER THE TONGUE EVERY DAY albuterol sulfate 90 mcg/actuation HFA aerosol inhaler 2 puff INHALATION Q4HP PRN (Reason: Shortness Of Breath) Patient Comments: INHALE TWO PUFFS BY MOUTH EVERY 4 HOURS ergocalciferol (vitamin D2) 1,250 mcg (50,000 unit) capsule 1,250 mcg PO WEEKLY Changed furosemide 40 mg tablet 60 mg PO BIDL 30 Days Qty: 90 0RF Discontinued spironolactone 25 mg tablet 25 mg PO DAILY lisinopril 20 mg tablet 20 mg PO DAILY Patient Comments: TAKE ONE TABLET BY MOUTH EVERY DAY Problem Reconciliation Problems Reviewed?: Yes Patient Discharge Instructions ACTIVITY: Continue current activity DIET: continue same diet Stand Alone Forms: [facility] Work Release Patient Instructions: DI for Heart Failure, DI for Shortness of Breath, Stop Light Heart Failure Print Language: Nepalese Providers Primary Care Provider: Karla Butts Admit Provider: Quique Hagen Attending Provider: Quique Hagen
--- NOTE | 2024-11-03 16:52 | PC.NURSE ---
VSS, R RADIAL ACCESS SITE APPEARS NON EDEMATOUS, NO DRAINAGE NOTED, PATIENT STATES HIS LAST BOWEL MOVEMENT WAS YESTERDAY, PATIENT HAS BEEN UP AMBULATING IN THE ROOM AND DENIES ANY CHEST PAIN OR DISCOMFORT.
--- NOTE | 2024-11-03 19:10 | CA_ITS ---
APPROVED REPORT EXAM: Comprehensive 2D, Doppler, and color-flow Echocardiogram with contrast [place]: Brianne Lopez CRT Ht: 5 ft 9 in Wt: 272lbs BSA: 2.35 BP: 140/84 mmHg Indications: Congestive Heart Failure, COPD, Shortness of Breath, Peripheral Edema Echo Enhancing Agent Indication: Endocardial border delineation Agent(s) / Amount(s) Used: Definity 2 cc Comments: Definity given. 2D Dimensions LA Volume 60.50 mL LA Volume Index 25.10 mL/m2 (M/F) 16-34 M-Mode Dimensions RVDd 4.01 cm (0.9-2.6) LA Diam 5.27 cm (1.9-4.0) LVDd 6.47 cm (3.5-5.7) LVDs 5.11 cm (3.5-5.7) IVSd 1.45 cm (0.6-1.1) PWd 0.89 cm (0.6-1.1) EF (Teich) 41.80% FS 21.00% EDV (Teich) 213.70 mL TAPSE 2.02 (<1.7) ESV (Teich) 124.40 mL LV Diastology E Decel Time 150 (160-240 msec) E/A Ratio 0.79 MED A' 12.60 cm/s LAT A' 15.20 cm/s Aortic Valve AO Peak GR. 6.90 mmHg Mitral Valve MV E Max Willie. 100.0 (40-130 cm/s) MV A Velocity 126.0 (40-130 cm/s) E/A Ratio 0.79 MV PHT 44.0 ms Pulmonary Valve PV Peak Velocity 144.0 (50-150 cm/s) Tricuspid Valve TR P. Velocity 267.00 cm/s RAP Estimate 10.00 mmHg RVSP 38.50 mmHg Left Ventricle The left ventricle is normal size. Left ventricular systolic function is mildly to moderately reduced. There is increased left ventricular wall thickness. The inferior and inferolateral LV vela are moderately hypokinetic. Grade 1 diastolic dysfunction is present. No left ventricle thrombus noted on this study. LVEF is 40% Right Ventricle The right ventricle is mildly dilated. The right ventricular systolic function is mildly reduced. Atria The left atrium is mildly dilated. The right atrium is mildly dilated. There is no color Doppler evidence of interatrial shunt. Aortic Valve The aortic valve opens well. There is no hemodynamically significant aortic valvular stenosis. No aortic regurgitation is present. Mitral Valve The mitral valve is normal in structure. No evidence of mitral valve stenosis. Mild mitral regurgitation is present. Tricuspid Valve The tricuspid valve leaflets are thin and pliable. Mild tricuspid regurgitation. RVSP is 20-25 mmHg. Pulmonic Valve The pulmonary valve is grossly normal in structure. Trace pulmonic valve regurgitation is present. Great Vessels The aortic root is normal in size. IVC is normal in size and collapses >50% with inspiration. Pericardium Trivial, circumferential pericardial effusion is present. No echo indications of tamponade. Other Information Study Quality: Fair Conclusion Mild to moderate reduction in LV systolic function (LVEF 40%). The inferior and inferolateral LV vela are moderately hypokinetic. Mild RV dilation with mild reduction in RV function. Mild MR, mild TR. Trivial, circumferential pericardial effusion is present. No echo indications of tamponade. Electronically signed by : Brandi Serra MD 11/03/2024 16:29:25
--- NOTE | 2024-11-04 10:38 | SW/DCPLANNER ---
Spoke with patient on the phone. Patient stated that he is doing good. Patient stated that he is aware of his upcoming appointments. Patient stated that he was able to get his new medicine picked up. Patient stated that he has no concerns or questions at this time. Jena Hassan
== END 2024-11-03 18:15 | DRG 286 ==
LOC: ER 16:54 → 2ND 20:18
PROVIDERS: Internal Medicine; Physician Assistant; Admitting Provider Internal Medicine; Emergency Provider Student in an Organized Health Care Education/Training Program; PCP Physician Assistant; Visit Provider Internal Medicine
PROC: 4A023N7 Measurement of Cardiac Sampling and Pressure, Left Heart, Percutaneous Approach (ICD-10-PCS; CPT 93452; principal; 2024-11-03 13:15)
DX: I11.0 Hypertensive heart disease with heart failure (principal); I50.21 Acute systolic (congestive) heart failure; J44.9 Chronic obstructive pulmonary disease, unspecified; I25.10 Atherosclerotic heart disease of native coronary artery without angina pectoris; E66.812 Obesity, class 2; E55.9 Vitamin D deficiency, unspecified; E87.6 Hypokalemia; F17.210 Nicotine dependence, cigarettes, uncomplicated; Z68.39 Body mass index [BMI] 39.0-39.9, adult; Z79.899 Other long term (current) drug therapy
CPT/HCPCS: 36415; 71045; 71046; 80048; 80053; 82803; 83605; 83735; 83880; 84484; 85025; 86803; 87389; 87522; 93005; 93306; 94640; 99152; C1725; C1760; C1769; J1200; J1644; J1938; J2003; J2250; J2704; J3010; J7040; Q9957; Q9967